=== PATIENT | female | born 1945 | race Caucasian/White ===

== ENCOUNTER 2018-01-12 17:31 | Emergency (ER) | payer MEDICARE ==
--- OUTSIDE RECORDS SUMMARY | 2018-01-12 19:26 | XMS REPORT ---
:1945 External Reference #:[id number] Author Organization zoning administrator [facility] Address [address] [place] [address] Phone [phone] Care Team Providers Name Role Phone Sergio Wells M.D. Care Team Information Insurance Manager Unavailable Santa Bagley MD Primary Care Physician Unavailable Payers Type Date Identification Numbers Payment Provider Subscriber Medicare Primary Policy Number: [id number] Medicare [place] PayID: [id number] [address] [address] [place] [address] [facility] Part B Policy Number: [id number] [employer] [place] Bruno Hickey PayID: [id number] [address] [place] [address] Problems Date Description Provider Status Onset: 05/02/2017 Electrocardiogram abnormal Romeo Cotton Active Onset: 03/22/2017 Osteopenia Santa Bagley MD Active Onset: 02/06/2017 Osteoarthritis of knee Santa Bagley MD Active Onset: 02/06/2017 Carpal tunnel syndrome Santa Bagley MD Active Onset: 01/23/2017 Personal history of primary malignant Jonny Hardy MD Active neoplasm of breast Onset: 05/09/2016 Paroxysmal atrial fibrillation Romeo Cotton Active Onset: 01/14/2014 Primary cardiomyopathy Romeo Cotton Active Onset: 01/14/2014 Conduction disorder of the heart Romeo Cotton Active Onset: Neurogenic thoracic outlet syndrome Active Onset: Lumbar arthritis Active Family History Date Family Member(s) Problem(s) Comments Father due to Heart Disease () Mother Breast Cancer Children 3 First Daughter A&W Second Daughter A&W Third Daughter A&W adopted Siblings None Paternal Grandfather due to Unknown Causes () Paternal Grandmother due to Unknown Causes () Maternal Grandfather due to Unknown Causes () Maternal Grandmother due to Breast Cancer () Social History Type Date Description Comments Marital Status Lives With Spouse Diet Healthy, Well Balanced Occupation Business Search Engine Optimization Manager retired Cigarette Use Former Cigarette Smoker 2 Packs Daily 35 years ago ETOH Use Denies alcohol use Recreational Drug Use Denies Drug Use Smoking Patient is a former smoker Daily Caffeine Does not consume caffeine Exercise Type/Frequency Exercises regularly Seat Belt/Car Seat Always uses seat belt Currently Active Patient is currently not sexually active Contraceptive Methods None STD's No STD History Allergies, Adverse Reactions, Alerts Date Description Reaction Status Severity Comments 03/17/2015 Tylenol active Medications Medication Date Status Form Strength Qnty SIG Indications Ordering Provider Vagifem 10/02 Active Tablets 10mcg 24tab use 1 tablet N95.2 s 2x qw Jump, ANP-C Trimo-Small 10/02 Active Gel 0.025% 113.4 05/15 applicator N95.2 Kiana 00gm 2x qw Jump, ANP-C Shingrix 09/10 Active Suspension 50mcg 1unit intramuscular Z23 Rec s x 1 Santa DIAS Xarelto 04/15 Active Tablets 20mg 90tab 1 by mouth I48.91 s every day Romeo K Propafenone 01/14 Active Tablets 150mg 180ta 4 tablets by bs mouth as Romeo K needed for atrial fibrillation Lisinopril 04/30 Active Tablets 2.5mg 90tab 1 tab by mouth s every day Romeo K Metoprolol 03/13 Active Tablets 25mg 90tab 1 tab by mouth Yury Tar s daily Romeo K Atorvastatin Active Tablets 10mg 90tab 1 by mouth Kevyn Calcium s every day Santa DIAS Potassium Active Capsules ER 10Meq 200ca 1 by mouth Unknown Chloride ER / ps every day Diclofenac Active Tablets DR 75mg 60tab take 2 tablet Unknown Sodium s by mouth daily Calcium-Vitam Active Tablets 600-200mg 1 by mouth Unknown in D -Unit twice a day Gynazole-1 10/08 Hx Cream 2% 5gm insert vaginally at Jump, - bedtime x1 ANP-C 10/10 Metoprolol Hx Unknown Tartrate / - 10/02 Xarelto Hx Unknown / - 10/02 Lisinopril Hx Unknown /10/02 Lipitor Hx Unknown / - 10/02 Volumen Hx Unknown / - 10/02 Propanediol Hx Unknown / - 10/02 Medications Administered in Office Medication Date Status Form Strength Qnty SIG Indications Ordering Provider PT SCRN Tbco Administered Injection Casa Gutierrez Id as Non User 018 Dc Bobby PT SCRN Tbco Administered Injection Casa Gutierrez Id as Non User 018 Dc Bobby No PT Tbco Administered Injection Kiana SCRN RNG 018 Jump, ANP-C PT SCRN Tbco Administered Injection Kiana Id as Non User 018 Jump, ANP-C SCRN Mark Perf Administered Injection Kiana RSLTS Not Doc 018 Jump, ANP-C No PT Tbco Administered Injection Kiana SCRN RNG 018 Jump, ANP-C PT SCRN Tbco Administered Injection Kiana Id as Non User 018 Jump, ANP-C SCRN Mark Perf Administered Injection Kiana RSLTS Not Doc 018 Jump, ANP-C Immunizations CPT Code Status Date Vaccine Lot # [id number] Given 02/06/2017 Influenza Virus Vaccine, Quadrivalent, Split, Preservative Free 11675 Given 08/27/2012 Tetnus, Diptheria Toxoids And Acellular Pertussis, PT > 7Yrs Old 50535 Given Unknown Zoster Shingles Vaccine For Subcutaneous Injection Vital Signs Date Vital Result Comment 01/07/2018 BP Systolic 134 mmHg BP Diastolic 62 mmHg Height 66 inches 5'6" Weight 184.00 lb BMI (Body Mass Index) 29.7 kg/m2 Last Menstrual Period 7950601 1 Parity 1 01/01/2018 Height 66 inches 5'6" Weight 185.00 lb BMI (Body Mass Index) 29.9 kg/m2 Last Menstrual Period [id number] 1 Parity 1 12/21/2017 BP Systolic 132 mmHg BP Diastolic 76 mmHg Height 66 inches 5'6" Weight 183.00 lb BMI (Body Mass Index) 29.5 kg/m2 Last Menstrual Period [id number] 1 Parity 1 LC2 11/12/2017 BP Systolic 128 mmHg BP Diastolic 68 mmHg Height 66 inches 5'6" Weight 180.00 lb BMI (Body Mass Index) 29.0 kg/m2 1 Parity 1 10/02/2017 BP Systolic 122 mmHg BP Diastolic 70 mmHg Height 65.2 inches 5'5.20" Weight 179.00 lb BMI (Body Mass Index) 29.6 kg/m2 1 Parity 1 LC 2 09/10/2017 Heart Rate 47 /min Height 65.2 inches Weight 186.00 lb BMI (Body Mass Index) 30.8 kg/m2 05/02/2017 Heart Rate 68 /min Respiratory Rate 16 /min Height 66 inches Weight 183.00 lb BMI (Body Mass Index) 29.5 kg/m2 02/06/2017 Body Temperature 97.9 F Heart Rate 68 /min Weight 183.38 lb 01/23/2017 Body Temperature 97.7 F Heart Rate 56 /min Height 66.75 inches Weight 192.00 lb BMI (Body Mass Index) 30.3 kg/m2 05/09/2016 Heart Rate 62 /min Respiratory Rate 16 /min Height 66.25 inches Weight 187.00 lb BMI (Body Mass Index) 30.0 kg/m2 04/20/2015 Heart Rate 56 /min Respiratory Rate 16 /min Height 66.25 inches Weight 178.00 lb BMI (Body Mass Index) 28.5 kg/m2 04/19/2015 BP Systolic 118 mmHg BP Diastolic 78 mmHg Height 66 inches 5'6" Weight 179.00 lb BMI (Body Mass Index) 28.9 kg/m2 2 Parity 2 03/17/2015 BP Systolic 128 mmHg BP Diastolic 78 mmHg Height 66 inches 5'6" Weight 181.00 lb BMI (Body Mass Index) 29.2 kg/m2 2 Parity 2 04/15/2014 BP Systolic 120 mmHg BP Diastolic 78 mmHg Heart Rate 68 /min Height 65.5 inches Weight 185.00 lb BMI (Body Mass Index) 30.3 kg/m2 01/14/2014 Heart Rate 56 /min Respiratory Rate 12 /min Height 65.5 inches Weight 181.50 lb BMI (Body Mass Index) 29.7 kg/m2 Results Test Date Test Result H/L Range Note Laboratory test 12/26/2017 Surgical Pathology SEE RESULT BELOW 1 finding Laboratory test 11/12/2017 Surgical Pathology SEE RESULT BELOW 2 finding Laboratory test 10/02/2017 Culture Genital & SEE RESULT BELOW 3 finding Sensitivity Basic Metabolic Panel 07/17/2017 Anion Gap 4 mmol/L 2-11 BUN/Creatinine Ratio 24.5 1 High 8-20 Blood Urea Nitrogen 23 mg/dL 6-24 Calcium 9.3 mg/dL 8.6-10.3 Chloride 105 mmol/L 101-111 Co2 Carbon Dioxide 30 mmol/L 22-32 Creatinine 0.94 mg/dL 0.51-0.95 Egfr 74.9 1 >60 4 Egfr Non- 58.2 1 >60 Glucose 77 mg/dL 70-100 Potassium 4.6 mmol/L 3.5-5.0 Sodium 139 mmol/L 133-145 CBC Auto Diff 07/17/2017 Abs Basophils 0.1 10^3/uL 0-0.2 Abs Eosinophils 0.2 10^3/uL 0-0.6 Abs Lymphocytes 1.4 10^3/uL 1.0-4.8 Abs Monocytes 0.4 10^3/uL 0-0.8 Abs Neutrophils 3.6 10^3/uL 1.5-7.7 Abs Nucleated RBC 0 10^3/uL Basophil % 1.0 % 0-2 Eosinophil % 3.2 % 0-6 Granulocyte % 63.6 % 38-83 Hematocrit 35 % 35-47 Hemoglobin 11.7 g/dL Low 12.0-16.0 Lymphocyte % 24.6 % Low 25-47 Mean Corpuscular HGB Conc 33 g/dL 31-36 Mean Corpuscular Hemoglobin 31 pg 27-31 Mean Corpuscular Volume 92 fL 80-97 Mean Platelet Volume 9 um3 7.4-10.4 Monocyte % 7.6 % High 0-7 Nucleated Red Blood Cells % 0 1 Platelet Count 168 10^3/uL 150-450 Red Blood Count 3.83 10^6/uL Low 4.0-5.4 Red Cell Distribution Width 15 % 10.5-15 White Blood Count 5.7 10^3/uL 3.5-10.8 Urinalysis Profile 06/07/2017 Urine Appearance Cloudy 5 Urine Bacteria Absent Absent 5 Urine Bilirubin Negative Negative 5 Urine Blood 1+ Negative 5 Urine Color Yellow 5 Urine Glucose Negative Negative 5 Urine Ketones Negative Negative 5 Urine Leukocytes 3+ Negative 5 Urine Nitrite Negative Negative 5 Urine Protein Negative Negative 5 Urine Red Blood Cell Trace(0-2/hpf) Absent 5 Urine Specific [place] 1.018 1 1.010-1.030 5 Urine Squamous Epithelial Cell Present Absent 5 Urine Urobilinogen Negative Negative 5 Urine White Blood Cell 3+(>20/hpf) Absent 5 Urine pH 5.0 1 5-9 5 Urine Culture And 06/07/2017 Urine Culture See Result Below 5, 6 Sensitivities Urinalysis Profile 05/03/2017 Urine Appearance Cloudy 7 Urine Bacteria 1+ Absent 7 Urine Bilirubin Negative Negative 7 Urine Blood 1+ Negative 7 Urine Color Yellow 7 Urine Glucose Negative Negative 7 Urine Hyaline Casts Present Absent 7 Urine Ketones Negative Negative 7 Urine Leukocytes 3+ Negative 7 Urine Nitrite Negative Negative 7 Urine Protein Negative Negative 7 Urine Red Blood Cell 1+(3-5/hpf) Absent 7 Urine Specific [place] 1.011 1 1.010-1.030 7 Urine Squamous Epithelial Cell Present Absent 7 Urine Urobilinogen Negative Negative 7 Urine White Blood Cell 3+(>20/hpf) Absent 7 Urine pH 5.0 1 5-9 7 Urine Culture And Sensitivities 05/03/2017 Urine Culture See Result Below 7, 8 Laboratory test finding 03/17/2015 Cytology SEE RESULT BELOW 9 Human Papilloma Virus Rna Negative Negative 10 1 SEE RESULT BELOW Name: SHENG HICKEY : [address]: Casa Bobby MD Acct: [id number] Unit: [id number] AGE: 72 Location: [facility] Re12/26/17 SEX: F Status: REG REF SPEC: [id number] DWAYNE: 12/26/171147 [facility] DR: Casa Bobby MD REQ: [id number] RECD: 12/26/17 STATUS: AVEL PIERRE DR: Santa Bagley MD _ ORDERED: LEVEL 4 COMMENTS: [id number] FINAL DIAGNOSIS Uterus, endometrium, biopsy: -- Atrophic endometrial mucosa. -- No evidence of hyperplasia or malignancy. PRE-OPERATIVE DIAGNOSIS Dysfunctional uterine bleeding GROSS DESCRIPTION The specimen is received in formalin labeled, EM BX, and consists of a 3.2 x 2.0 x 0.2 cm aggregate of translucent to blood tinged mucus admixed with scant coe-white irregular soft tissue fragments, which is filtered and entirely submitted in one cassette. Signed by and Reported on: Isabelle Dupont MD 12/27/17 1554 END OF REPORT DEPARTMENT OF PATHOLOGY, [address] [place] [address] Reji Hernandez M.D. Director [facility] # [id number] 2 SEE RESULT BELOW Name: SHENG HICKEY : [address]: Kiana العراقي Acct: [id number] Unit: [id number] AGE: 72 Location: [facility] Re11/12/17 SEX: F Status: REG REF SPEC: [id number] DWAYNE: 11/12/[address]: Kiana العراقي REQ: [id number] RECD: 11/12/17 STATUS: AVEL PIERRE DR: Santa Bagley MD _ ORDERED: LEVEL 4 COMMENTS: [id number] FINAL DIAGNOSIS Uterus, endometrium, biopsy: -- Inflamed mucus only. -- No endometrial tissue present for evaluation. PRE-OPERATIVE DIAGNOSIS Dysfunctional uterine bleeding. GROSS DESCRIPTION The specimen is received in formalin labeled, EM BX, and consists of a 1.0 x 0.9 x 0.1 cm aggregate of clear to coe-white mucus. The specimen is filtered and submitted entirely in one cassette. NOTE: The specimen is scant and may not survive processing. Signed by and Reported on: Isabelle Dupont MD 11/15/17 1019 END OF REPORT DEPARTMENT OF PATHOLOGY, [address] [place] [address] Reji Hernandez M.D. Director [facility] # [id number] 3 SEE RESULT BELOW Name: SHENG HICKEY Fly : [address]: Kiana العراقي Acct: [id number] Unit: [id number] AGE: 72 Location: [facility] Re10/02/17 SEX: F Status: REG REF SPEC: [id number] DWAYNE: 10/02/[address]: Kiana العراقي REQ: [id number] RECD: 10/02/17 STATUS: COMP _ SOURCE: CERVIX SPDESC: ORDERED: Genital Culture COMMENTS: [id number] Procedure Result Reported Site Genital Culture Final 10/04/17- 948 ML Organism 1 GARDNERELLA VAGINALIS Quantity 2+ Organism 2 NORMAL PARRISH Quantity 1+ Routine genital cultures do not include selective agar for Neisseria gonorrhoeae. Molecular testing offers better test sensitivity and therefore is the preferred test methodology for identifying this organism. * ML - Main Lab . END OF REPORT DEPARTMENT OF PATHOLOGY, [address] [place] [address] Reji Hernandez M.D. Director [facility] # [id number] 4 Because ethnic data is not always readily available, this report includes an eGFR for both -Americans and non- Americans. The National Kidney Disease Education Program (NKDEP) does not endorse the use of the MDRD equation for patients that are not between the ages of 18 and 70, are , have extremes of body size, muscle mass, or nutritional status, or are non- or non-. According to the National Kidney Foundation, irrespective of diagnosis, the stage of the disease is based on the level of kidney function: Stage Description GFR(mL/min/1.73 m(2)) 1 Kidney damage with normal or decreased GFR 90 2 Kidney damage with mild decrease in GFR 60-89 3 Moderate decrease in GFR 30-59 4 Severe decrease in GFR 15-29 5 Kidney failure <15 (or dialysis) 5 [id number] 6 SEE RESULT BELOW Name: SHENG HICKEY : [address]: Santa Bagley MD Acct: [id number] Unit: [id number] AGE: 72 Location: [facility] Re06/07/17 SEX: F Status: REG REF SPEC: [id number] DWAYNE: 06/07/17-[address] [facility] [address]: Santa Bagley MD REQ: [id number] RECD: 06/07/17 STATUS: COMP _ SOURCE: URINE SPDESC: ORDERED: Urine Culture Procedure Result Reported Site Urine Culture Final 06/08/17- 1701 ML No Growth (<1,000 CFU/mL) * ML - [facility] ([facility]) . END OF REPORT * ML=Testing performed at Main Lab DEPARTMENT OF PATHOLOGY, [address] [place] [address] Reji Hernandez M.D. Director [facility] # [id number] 8 SEE RESULT BELOW Name: SHENG HICKEY : [address]: Santa Bagley MD Acct: [id number] Unit: [id number] AGE: 72 Location: [facility] Re05/03/17 SEX: F Status: REG REF SPEC: [id number] DWAYNE: 05/03/17-[address]: Santa Bagley MD REQ: [id number] RECD: 05/04/17-0786 STATUS: COMP _ SOURCE: URINE SPDESC: ORDERED: Urine Culture Procedure Result Reported Site Urine Culture Final 05/06/17- 900 ML No Growth (<1,000 CFU/mL) * ML - MAIN LAB ([facility]) . END OF REPORT * ML=Testing performed at Main Lab DEPARTMENT OF PATHOLOGY, [address] [place] [address] Reji Hernandez M.D. Director [facility] # [id number] 9 SEE RESULT BELOW Name: SHENG HICKEY : [address]: Casa Bobby MD Acct: [id number] Unit: [id number] AGE: 69 Location: [facility] Re03/17/15 SEX: F Status: REG REF SPEC: [id number] DWAYNE: 03/17/15-[address] [facility] [address]: Casa Bobby MD REQ: [id number] RECD: 03/17/15 STATUS: SOUT _ ORDERED: IMAGE ANALYSIS, HPV/Thin Prep FINAL DIAGNOSIS Negative for Intraepithelial lesion or Malignancy A. Ectocervical/Endocervical Specimen Adequacy: Satisfactory of evaluation Transformation zone component identified Patient Information: HPV: High risk HPV RNA testing regardless of pap results. Actual Specimen Date: 03/17/15 LMP If Unknown: unknown Spec Date if unknown: unknown Post Menopausal?: Y Date Time Test Result Flag (u) Normal Range 03/17/15 1420 HPV RNA Negative Negative The high-risk HPV types detected by the assay include: 16, 18, 31, 33, 35, 39, 45, 51, 52, 56, 58, 59, 66, and 68. Signed (signature on file) Jeff Zhou 03/18/15 1329 This Pap test was evaluated with the assistance of the ThinPrep Test Imaging System. Due to cytologic findings at the business functional analyst microscope, comprehensive manual rescreening by a Best Worker may be required. The Pap Smear is a screening test designed to aid in the detection of premalignant and malignant conditions of the uterine cervix. It is not a diagnostic procedure and should not be used as the sole means of detecting cervical cancer. Both false- positive and false- negative reports do occur. Depending on your risk status, a Pap smear should be obtained and evaluated every 1-3 years. END OF REPORT * ML=Testing performed at Main Lab DEPARTMENT OF PATHOLOGY, [address] [place] [address] Reji Hernandez M.D. Director [facility] # [id number] 10 The high-risk HPV types detected by the assay include: 16, 18, 31, 33, 35, 39, 45, 51, 52, 56, 58, 59, 66, and 68. Procedures Date CPT Code Description Status Comment 01/01/2018 36818 Fitting & Insertion Of Completed Pessary/Intravaginal Support Device 12/26/2017 84549 Hysteroscopy,D&C Completed 12/26/2017 45256 Hysteroscopy, Biopsy Completed 11/12/2017 28350 Echography Transvaginal Completed 11/12/2017 88655 Biopsy Endometrial W/O Completed Cervical Dilation 03/20/2017 Mammogram Completed 01/27/2016 Colonoscopy Completed no further screening needed 03/17/2015 87875 Fitting & Insertion Of Completed Pessary/Intravaginal Support Device Encounters Type Date Location Provider CPT E/M Dx Office Visit 01/07/2018 2:20p [facility] Office Casa Bobby M.D. 96757 N81.2 Office Visit 12/21/2017 3:20p [facility] Casa Bobby M.D. 54485 N95.0 N81.2 Office Visit 11/12/2017 9:00a [facility] SAUMYA Vera 78056 N95.0 N81.9 N95.2 Office Visit 10/02/2017 9:00a [facility] Office SAUMYA Vera 89421 N81.9 N81.11 N95.2 N95.0 Office Visit 04/19/2015 10:00a [facility] Office Casa Bobby M.D. 98307 N81.9 Office Visit 03/17/2015 1:40p [facility] Casa Bobby M.D. 96231 N81.11 Z12.4 N81.9 Plan of Care Future Appointment(s):02/08/2018 10:20 am - Casa Bobby M.D. at [facility]01/07/2018 - Casa Bobby M.D.N81.2 Incomplete uterovaginal prolapseComments:pt to leave alone for a few weeks rtc 1 monthFollow up:Followup :. (Follow up)
--- OUTSIDE RECORDS SUMMARY | 2018-01-12 19:26 | XMS REPORT ---
:1945 External Reference #:[id number] Author Organization [facility] Address [address] [place] [address] Phone [phone] Care Team Providers Name Role Phone Sergio Wells M.D. Care Team Information Apprentice Plumber Unavailable Santa Bagley MD Primary Care Physician Unavailable Payers Type Date Identification Numbers Payment Provider Subscriber Commercial Policy Number: [id number] Aetna Ppo Bruno Ahsan Hickey PayID: [id number] [address] [place] [address] [facility] Part [facility] Policy Number: [id number] Medicare [place] Sheng Hickey PayID: [id number] [address] [address] [place] [address] Problems Date Description Provider Status Onset: 05/02/2017 [...] Spouse Diet Healthy, Well Balanced Occupation [employer] retired Cigarette Use Former Cigarette Smoker 2 [...] Active Gel 0.025% 113.4 05/15 applicator N95.2 00gm 2x qw Jump, ANP-C Shingrix 09/10 [...] Active Tablets 10mg 90tab 1 by mouth Kevyn, Calcium s every day Santa DIAS Potassium Active Capsules ER 10Meq 200ca 1 by mouth Unknown Chloride ER / ps every day Diclofenac Active Tablets DR 75mg 60tab take 2 tablet Unknown Sodium s by mouth daily Calcium-Vitam Active Tablets 600-200mg 1 by mouth Unknown in D / -Unit twice a day Gynazole-1 10/08 Hx Cream 2% 5gm insert Kiana vaginally at Jump, - bedtime x1 ANP-C 10/10 Metoprolol Hx Unknown Tartrate / - 10/02 Xarelto Hx Unknown / - 10/02 Lisinopril Hx Unknown / - 10/02 Lipitor Hx Unknown / - 10/02 Volumen [...] CPT Code Status Date Vaccine Lot # [id number] Given 02/06/2017 Influenza Virus Vaccine, Quadrivalent, Split, Preservative Free 16804 Given 08/27/2012 Tetnus, Diptheria Toxoids And Acellular Pertussis, PT > 7Yrs Old 51086 Given Unknown Zoster Shingles Vaccine For Subcutaneous Injection Vital Signs Date Vital Result Comment 12/21/2017 BP Systolic 132 mmHg BP Diastolic 76 mmHg Height 66 inches 5'6" Weight 183.00 lb BMI (Body Mass Index) 29.5 kg/m2 Last Menstrual Period 3549982 1 Parity 1 LC2 11/12/2017 BP Systolic [...] Range Note Laboratory test 12/26/2017 Surgical Pathology <pending> finding Laboratory test 11/12/2017 Surgical Pathology SEE RESULT BELOW 1 finding Laboratory test 10/02/2017 Culture Genital & SEE RESULT BELOW 2 finding Sensitivity Basic Metabolic Panel 07/17/2017 Anion Gap 4 mmol/L 2-11 BUN/Creatinine Ratio 24.5 1 High 8-20 Blood Urea Nitrogen 23 mg/dL 6-24 Calcium 9.3 mg/dL 8.6-10.3 Chloride 105 mmol/L 101-111 Co2 Carbon Dioxide 30 mmol/L 22-32 Creatinine 0.94 mg/dL 0.51-0.95 Egfr 74.9 1 >60 3 Egfr Non- 58.2 1 >60 Glucose 77 [...] 3.5-10.8 Urinalysis Profile 06/07/2017 Urine Appearance Cloudy 4 Urine Bacteria Absent Absent 4 Urine Bilirubin Negative Negative 4 Urine Blood 1+ Negative 4 Urine Color Yellow 4 Urine Glucose Negative Negative 4 Urine Ketones Negative Negative 4 Urine Leukocytes 3+ Negative 4 Urine Nitrite Negative Negative 4 Urine Protein Negative Negative 4 Urine Red Blood Cell Trace(0-2/hpf) Absent 4 Urine Specific [place] 1.018 1 1.010-1.030 4 Urine Squamous Epithelial Cell Present Absent 4 Urine Urobilinogen Negative Negative 4 Urine White Blood Cell 3+(>20/hpf) Absent 4 Urine pH 5.0 1 5-9 4 Urine Culture And 06/07/2017 Urine Culture See Result Below 4, 5 Sensitivities Urinalysis Profile 05/03/2017 Urine Appearance Cloudy 6 Urine Bacteria 1+ Absent 6 Urine Bilirubin Negative Negative 6 Urine Blood 1+ Negative 6 Urine Color Yellow 6 Urine Glucose Negative Negative 6 Urine Hyaline Casts Present Absent 6 Urine Ketones Negative Negative 6 Urine Leukocytes 3+ Negative 6 Urine Nitrite Negative Negative 6 Urine Protein Negative Negative 6 Urine Red Blood Cell 1+(3-5/hpf) Absent 6 Urine Specific [place] 1.011 1 1.010-1.030 6 Urine Squamous Epithelial Cell Present Absent 6 Urine Urobilinogen Negative Negative 6 Urine White Blood Cell 3+(>20/hpf) Absent 6 Urine pH 5.0 1 5-9 6 Urine Culture And Sensitivities 05/03/2017 Urine Culture See Result Below 6, 7 Laboratory test finding 03/17/2015 Cytology SEE RESULT BELOW 8 Human Papilloma Virus Rna Negative Negative 9 1 SEE RESULT BELOW Name: SHENG HICKEY : [address]: Kiana العراقي Acct: [id number] Unit: [id number] AGE: 72 Location: [facility] Re11/12/17 SEX: F Status: REG REF SPEC: [id number] DWAYNE: 11/12/170927 [facility] DR: Kiana العراقي REQ: [id number] RECD: 11/12/17 STATUS: AVEL PIERRE DR: Santa Bagley MD _ ORDERED: LEVEL 4 COMMENTS: [id number] FINAL DIAGNOSIS Uterus, endometrium, biopsy: -- Inflamed [...] 1019 END OF REPORT DEPARTMENT OF PATHOLOGY, [address] [place] [address] Reji Hernandez M.D. Director [facility] # [id number] 2 SEE RESULT BELOW Name: SHENG HICKEY : [address]: Kiana العراقي Acct: [id number] Unit: [id number] AGE: 72 Location: [facility] Re10/02/17 SEX: F Status: REG REF SPEC: [id number] DWAYNE: 10/02/[address] [facility] [address]: Kiana العراقي REQ: [id number] RECD: 10/02/17 STATUS: COMP _ SOURCE: CERVIX SPDESC: ORDERED: Genital Culture COMMENTS: [id number] Procedure Result Reported Site Genital Culture Final 10/04/17- 0949 ML Organism 1 GARDNERELLA VAGINALIS Quantity 2+ Organism 2 NORMAL PARRISH Quantity 1+ Routine genital cultures do not include selective agar for Neisseria gonorrhoeae. Molecular testing offers better test sensitivity and therefore is the preferred test methodology for identifying this organism. * ML - Main Lab . END OF REPORT DEPARTMENT OF PATHOLOGY, [address] [place] [address] Reji Hernandez M.D. Director [facility] # [id number] 3 Because ethnic data is not always readily [...] 15-29 5 Kidney failure <15 (or dialysis) 4 [id number] 5 SEE RESULT BELOW Name: SHENG HICKEY Fly : [address]: Santa Bagley MD Acct: [id number] Unit: [id number] AGE: 72 Location: [facility] Re06/07/17 SEX: F Status: REG REF SPEC: [id number] DWAYNE: 06/07/17-[address] [place] [address] DR: Santa Bagley MD REQ: [id number] RECD: 06/07/17 STATUS: COMP _ [facility] ORDERED: Urine Culture Procedure Result Reported Site Urine Culture Final 06/08/17- 1701 ML No Growth (<1,000 CFU/mL) * ML - MAIN LAB ([facility]) . END OF REPORT * ML=Testing performed at Main Lab DEPARTMENT OF PATHOLOGY, [address] [place] [address] Reji Hernandez M.D. Director [facility] # [id number] 6 [id number] 7 SEE RESULT BELOW Name: SHENG HICKEY : [address]: Santa Bagley MD Acct: [id number] Unit: [id number] AGE: 72 Location: [facility] Re05/03/17 SEX: F Status: REG REF SPEC: [id number] DWAYNE: 05/03/17-[address]: Santa Bagley MD REQ: [id number] RECD: 05/04/17 STATUS: COMP _ SOURCE: URINE SPDESC: ORDERED: Urine Culture Procedure Result Reported Site Urine Culture Final 05/06/17- 900 ML No Growth (<1,000 CFU/mL) * ML - MAIN LAB ([facility]) . END OF REPORT * ML=Testing performed at Main Lab DEPARTMENT OF PATHOLOGY, [address] [place] [address] Reji Hernandez M.D. Director [facility] # [id number] 8 SEE RESULT BELOW Name: SHENG HICKEY : [address]: Casa Bobby MD Acct: [id number] Unit: [id number] AGE: 69 Location: [facility] Re03/17/15 SEX: F Status: REG REF SPEC: [id number] DWAYNE: 03/17/15-[address] [facility] [address]: Casa Bobby MD REQ: [id number] RECD: 03/17/152 STATUS: SOUT _ ORDERED: IMAGE ANALYSIS, HPV/Thin [...] and 68. Signed (signature on file) Jeff Abelardo 03/18/15 1327 This Pap test was evaluated with the assistance of the Monstrous Test Imaging System. Due to cytologic findings at the shipping point inspector microscope, comprehensive manual rescreening by a Bread Room Hand may be required. The Pap Smear is [...] performed at Main Lab DEPARTMENT OF PATHOLOGY, [address] [place] [address] Reji Hernandez M.D. Director [facility] # [id number] 9 The high-risk HPV types detected by the assay include: 16, 18, 31, 33, 35, 39, 45, 51, 52, 56, 58, 59, 66, and 68. Procedures Date CPT Code Description Status Comment 11/12/2017 97748 Echography Transvaginal Completed 11/12/2017 99476 Biopsy Endometrial W/O Completed Cervical Dilation 03/20/2017 Mammogram Completed 01/27/2016 Colonoscopy Completed no further screening needed 03/17/2015 09032 Fitting & Insertion Of Completed Pessary/Intravaginal Support Device Encounters Type Date Location Provider CPT E/M Dx Office Visit 12/21/2017 3:20p [facility] Casa Bobby M.D. 97085 N95.0 N81.2 Office Visit 11/12/2017 9:00a [facility] SAUMYA Vera 75571 N95.0 N81.9 N95.2 Office Visit 10/02/2017 9:00a [facility] SAUMYA Vera 79080 N81.9 N81.11 N95.2 N95.0 Office Visit 04/19/2015 10:00a [facility] aCsa Bobby M.D. 17182 N81.9 Office Visit 03/17/2015 1:40p [facility] Office Casa Bobby M.D. 67063 N81.11 Z12.4 N81.9 Plan of Care Future Appointment(s):01/01/2018 3:00 pm - Casa Bobby M.D. at [facility] Mkkiui3810/02/2017 - ELLYN Vera-CN81.9 Female genital prolapse, unspecifiedFollow up:r/v u/s and consult PMB and recheck [id number] Cystocele, gjclqpzG17.2 Postmenopausal atrophic vaginitisNew Medication:Vagifem 10 mcgTrimo-Small 0.025 %N95.0 Postmenopausal bleeding
[2018-01-12 19:38] VITALS: BP 130/68
[2018-01-12] MEDS ORDERED: Sulfamethox/Trimethoprim DS 800/160* TAB PO ONE (20:27)
--- NOTE | 2018-01-12 20:36 | UC ---
Complaint Female HPI - HPI Summary HPI Summary: 2 days of intermittent dysuria and hematuria. No fever, nausea, back pain. Has a history of bladder prolapse and was recently fitted with a pessary. Has been using vaginal pH stabilizing cream. - History Of Current Complaint Chief Complaint: UCGU Stated Complaint: POSS UTI Time Seen by Provider: 01/12/18 19:47 Hx Obtained From: Patient Onset/Duration: Lasting Days, Still Present Severity Initially: Moderate Severity Currently: Moderate Pain Intensity: 0 Pain Scale Used: 0-10 Numeric Character: Burning Aggravating Factor(s): Urination Associated Signs And Symptoms: Negative: Fever, Back Pain, Nausea - Allergies/Home Medications Allergies/Adverse Reactions: Allergies Allergy/AdvReac Type Severity Reaction Status Date / Time acetaminophen [From Tylenol] Allergy See Comment Verified 01/12/18 19:40 PMH/Surg Hx/FS Hx/Imm Hx Cardiovascular History: Atrial Fibrillation Cancer History: Breast Cancer - Surgical History Surgical History: Yes Surgery Procedure, Year, and Place: LEFT BREAST MASTECTOMY, LEFT KNEE MENISCUS, RIGHT HIP REPLACEMENT. Biopsy of endometrial/vagina 12/26/17 - Family History Known Family History: Negative: Hypertension - Social History Alcohol Use: None Substance Use Type: None Smoking Status (MU): Former Smoker Review of Systems Constitutional: Negative Respiratory: Negative Cardiovascular: Negative Gastrointestinal: Negative Genitourinary: Dysuria, Hematuria All Other Systems Reviewed And Are Negative: Yes Physical Exam Triage Information Reviewed: Yes Appearance: Well-Appearing, No Pain Distress, Well-Nourished Vital Signs: Initial Vital Signs Temp 97.8 F 01/12/18 19:31 Pulse 56 01/12/18 19:31 Resp 12 01/12/18 19:31 BP 130/68 01/12/18 19:31 Pulse Ox 100 01/12/18 19:31 Laboratory Tests 01/12/18 19:55 POC Urine Color Red A POC Urine Clarity Clear POC Urine pH 5.5 POC Ur Specif [place] 1.020 POC Urine Protein 1+ A POC Ur Glucose (UA) Negative POC Urine Ketones Negative POC Urine Blood 3+ A POC Urine Nitrite Negative POC Urine Bilirubin 3+ A POC Urine Urobilinogen 0.2 POC U Leukocyte Esteras 3+ A Vital Signs Reviewed: Yes Eyes: Positive: Conjunctiva Clear ENT: Positive: Hearing grossly normal Neck: Positive: Supple Respiratory: Positive: No respiratory distress, No accessory muscle use Cardiovascular: Positive: Pulses Normal Abdomen Description: Positive: Nontender, Soft. Negative: CVA Tenderness (R), CVA Tenderness (L), Distended, Guarding Musculoskeletal: Positive: No Edema Neurological: Positive: Alert Psychological: Positive: Age Appropriate Behavior Skin: Negative: rashes Complaint Female Dx - Differential Dx/Diagnosis Provider Diagnoses: UTI Discharge - Sign-Out/Discharge Documenting (check all that apply): Patient Departure All imaging exams completed and their final reports reviewed: No Studies - Discharge Plan Condition: Stable Disposition: HOME Prescriptions: Sulfamethox/Trimethoprim DS* [Bactrim DS 800/160 TAB*] 1 tab PO BID #19 tab Patient Education Materials: Urinary Tract Infection in Women (ED) Referrals: Santa Bagley MD [Primary Care Provider] - If Needed Additional Instructions: YOUR URINE WILL BE SENT FOR CULTURE. WE WILL CALL YOU IF WE NEED TO CHANGE YOUR MANAGEMENT BASED ON ANTIBIOTIC SENSITIVITIES. STAY WELL HYDRATED. - Billing Disposition and Condition Condition: STABLE Disposition: Home
--- NOTE | 2018-01-14 16:10 | UC ---
- Progress Note Progress Note: 01/14/2018 Urine culture positive for E.Coli. Pt Rx Bactrim PO. which covers E. coli Awaiting for final sensitivity report No change Ro Jolly PA-C. Discharge - Sign-Out/Discharge Documenting (check all that apply): Patient Departure - D/c home All imaging exams completed and their final reports reviewed: No Studies - Discharge Plan Condition: Stable Disposition: HOME Prescriptions: Sulfamethox/Trimethoprim DS* [Bactrim DS 800/160 TAB*] 1 tab PO BID #19 tab Patient Education Materials: Urinary Tract Infection in Women (ED) Referrals: Santa Bagley MD [Primary Care Provider] - If Needed Additional Instructions: YOUR URINE WILL BE SENT FOR CULTURE. WE WILL CALL YOU IF WE NEED TO CHANGE YOUR MANAGEMENT BASED ON ANTIBIOTIC SENSITIVITIES. STAY WELL HYDRATED. - Billing Disposition and Condition Condition: STABLE Disposition: Home
--- NOTE | 2018-01-15 19:48 | UC ---
- Progress Note Progress Note: sensitive to Bactrim No change ljj 01/15/2018 Discharge - Sign-Out/Discharge Documenting (check all that apply): Post-Discharge Follow Up All imaging exams completed and their final reports reviewed: No Studies - Discharge Plan Condition: Stable Disposition: HOME Prescriptions: Sulfamethox/Trimethoprim DS* [Bactrim DS 800/160 TAB*] 1 tab PO BID #19 tab Patient Education Materials: Urinary Tract Infection in Women (ED) Referrals: Santa Bagley MD [Primary Care Provider] - If Needed Additional Instructions: YOUR URINE WILL BE SENT FOR CULTURE. WE WILL CALL YOU IF WE NEED TO CHANGE YOUR MANAGEMENT BASED ON ANTIBIOTIC SENSITIVITIES. STAY WELL HYDRATED. - Billing Disposition and Condition Condition: STABLE Disposition: Home
== END 2018-01-12 20:40 | disposition home or self-care (01) ==
LOC: UCEAST 17:31
DX: N39.0 Urinary tract infection, site not specified (principal); R31.9 Hematuria, unspecified; Z87.448 Personal history of other diseases of urinary system; Z88.6 Allergy status to analgesic agent; Z96.651 Presence of right artificial knee joint; Z87.891 Personal history of nicotine dependence
CPT/HCPCS: 81003; 87077; 87086; 87186; 99212; A9270-GY; G0463

== ENCOUNTER 2018-10-03 10:02 | Emergency (ER) | payer MEDICARE ==
--- OUTSIDE RECORDS SUMMARY | 2018-10-03 11:54 | XMS REPORT | Continuity of Care Document ---
:1945 External Reference #:[id number] Author Name Quyen Alexandre Care Team Providers Name Role Phone Santa Bagley M.D. Primary Care Physician Unavailable Payers Date Identification Numbers Payment Provider Subscriber Policy Number: [id number] [employer] Medicare Angeli Madrigal PayID: [id number] [address] [place] [address] Advance Directives Description No Information Available Problems Active Problems Provider Date Atrial fibrillation Onset: Congestive heart failure Onset: Exposure keratoconjunctivitis Tameka Chapman O.D. Onset: 04/23/2015 Nuclear senile cataract Tameka Chapman O.D. Onset: 04/23/2015 Myopia Tameka Chapman O.D. Onset: 04/23/2015 Regular astigmatism Tameka Chapman O.D. Onset: 04/23/2015 Presbyopia Tameka Chapman O.D. Onset: 04/23/2015 Vitreous degeneration Tameka Chapman O.D. Onset: 04/23/2015 Tear film insufficiency Tameka Chapman O.D. Onset: 04/27/2017 Family History Date Family Member(s) Observation Comments Father No Current Problems Mother Coag Mother Cataract Mother Macular Degeneration Social History Type Date Description Comments Sex Unknown Marital Status Legal Status: Occupation [employer] Work Status Retired ETOH Use Denies alcohol use Recreational Drug Use Denies Drug Use Tobacco Use Start: Unknown End: Patient is a former quit 32 years ago Unknown smoker Smoking Status Reviewed: 04/30/18 Patient is a former quit 32 years ago smoker Allergies, Adverse Reactions, Alerts Active Allergies Reaction Severity Comments Date Tylenol 04/16/2015 Medications Active Medications SIG Qnty Indications Ordering Provider Date Xarelto Romeo Cotton.DDavid 20mg Tablets Lisinopril Romeo CottonDDavid 2.5mg Tablets Klor-Con 10 Cardiedy Sergio M.DDavid 10Meq Tablets ER Atorvastatin Calcium CardiSergio snow M.D. 10mg Tablets Metoprolol Tartrate Romeo Cotton M.DDavid 25mg Tablets Diclofenac Sodium Unknown 75mg Tablets DR Calcium 600 + D Unknown [id number] Tablets Immunizations Description No Information Available Vital Signs Description No Information Available Results Description No Information Available Procedures Date Code Description Status 04/30/2018 10909 Determination Of Refractive State Completed 04/30/2018 84457 Est Patient Comprehensive Exam Completed 04/27/2017 86536 Determination Of Refractive State Completed 04/27/2017 90370 Est Patient Comprehensive Exam Completed 04/24/2016 24531 Determination Of Refractive State Completed 04/24/2016 44499 Est Patient Comprehensive Exam Completed 04/23/2015 14657 Determination Of Refractive State Completed 04/23/2015 12950 Est Patient Comprehensive Exam Completed 04/22/2014 96049 Determination Of Refractive State Completed 04/22/2014 38217 Est Patient Comprehensive Exam Completed 04/22/2014 101 Level 1 SCL Fit/Refit Completed 04/22/2013 14220 Determination Of Refractive State Completed 04/22/2013 52558 Est Patient Comprehensive Exam Completed 12/29/2011 46354 Determination Of Refractive State Completed 12/29/2011 53782 New Patient Comprehensive Exam Completed 12/29/2011 202 Refit SCL Completed Encounters Description No Information Available Plan of Treatment Future Appointment(s):05/20/2019 9:30 am - Tameka Chapman O.D. at [facility] MD, 04/30/2018 - Tameka Chapman O.D.H25.13 Age-related nuclear cataract, bilateralComments:You have been diagnosed with cataracts. If you are happy with your vision as it is now, then we willsee you at your next scheduled appointment. If you feel like your vision is getting worse before your scheduled appointment, please call Lissette or Yarely at [phone].Follow up:1 year You can expect to have your eyes dilated at your next visit. If Dr. Chapman orders any additional testing, it may require extra time. We recommend that you bring sunglasses, as dilation drops often make you light sensitive until they wear off. We always recommend you bring someone to drive you home if you are uncomfortable driving with your eyes dilated. If you have any questions before your next visit, feel free to call our office at .H04.123 Dry eye syndrome of bilateral lacrimal glandsComments:Both of your eyes appear to be dry. Use artificial tears as directed. You can use the tears more often if you are reading a book or are on the computer, as we tend to blink less, making our eyes dry out more.[email or web address] offers a few items in our optical department to help alleviate dry eye symptoms.H52.13 Myopia, bilateralComments:You have Myopia, or near sightedness. I have given you a prescription for glasses.H52.223 Regular astigmatism, bilateralComments: Astigmatism is a common vision condition that happens when a person's cornea is not symmetrical. Dr. Chapman has given you a prescription to correct for this.H52.4 PresbyopiaComments:You have presbyopia. This is when the lens in your eye loses the ability to change focus, and happens as we age. A pair of reading glasses will help you see up close.
--- NOTE | 2018-10-03 12:22 | UC ---
Skin Complaint HPI - HPI Summary HPI Summary: 73-year-old woman comes in with a chief complaint of swelling of the right hand and forearm after being bit by an insect yesterday. She was bit several times of some kind of a flying insect. Her hand and her dorsal forearm swallow up. She is topical Benadryl and some of the swelling is gone down. I when she closes her hand feels tight but she is able to have full range of motion no sensation deficits. She's had similar localized reactions in the past. No difficulty breathing no difficulty swallowing no generalized allergic reaction symptoms. - History of Current Complaint Time Seen by Provider: 10/03/18 11:54 Stated Complaint: INSECT BITE - Allergy/Home Medications Allergies/Adverse Reactions: Allergies Allergy/AdvReac Type Severity Reaction Status Date / Time acetaminophen [From Tylenol] Allergy See Comment Verified 10/03/18 12:17 PMH/Surg Hx/FS Hx/Imm Hx Previously Healthy: Yes Cardiovascular History: Hypertension, Atrial Fibrillation - Surgical History Surgical History: Yes Surgery Procedure, Year, and Place: LEFT BREAST MASTECTOMY, LEFT KNEE MENISCUS, RIGHT HIP REPLACEMENT. Biopsy of endometrial/vagina 12/26/17 - Family History Known Family History: Negative: Hypertension - Social History Alcohol Use: None Substance Use Type: None Smoking Status (MU): Former Smoker Review of Systems All Other Systems Reviewed And Are Negative: Yes Constitutional: Positive: Negative Skin: Positive: Other - SEE HPI Eyes: Positive: Negative ENT: Positive: Negative Respiratory: Positive: Negative Cardiovascular: Positive: Negative Gastrointestinal: Positive: Negative Motor: Positive: Negative Neurovascular: Positive: Negative Musculoskeletal: Positive: Negative Neurological: Positive: Negative Psychological: Positive: Negative Is Patient Immunocompromised?: No Physical Exam Triage Information Reviewed: Yes Appearance: Well-Appearing, No Pain Distress, Well-Nourished Vital Signs Reviewed: Yes Eye Exam: Normal Eyes: Positive: Conjunctiva Clear Neck: Positive: Supple Respiratory: Positive: No respiratory distress Musculoskeletal Exam: Normal Musculoskeletal: Positive: Strength Intact, ROM Intact Neurological Exam: Normal Neurological: Positive: Alert, Muscle Tone Normal Psychological Exam: Normal Psychological: Positive: Age Appropriate Behavior Skin: Positive: Other - Right hand and dorsal forearm are swollen. No erythema does not touch. Normal capillary refill patient is able to open and close her hand and range of motion of the wrist. Course/Dx - Course Course Of Treatment: LOCALIZED ALLERGIC REACTION TO INSECT BITE RIGHT HAND AND FOREARM; IMPROVING - Diagnoses Provider Diagnosis: Allergic reaction to insect bite Discharge - Sign-Out/Discharge Documenting (check all that apply): Patient Departure All imaging exams completed and their final reports reviewed: No Studies - Discharge Plan Condition: Stable Disposition: HOME Prescriptions: methylPREDNISolone [Medrol Dosepak 4 MG*] 0 mg PO .SEE DWIGHT INSTRUCTION #1 dwight Patient Education Materials: Allergies (ED) Referrals: Santa Bagley MD [Primary Care Provider] - Additional Instructions: TO TREAT LOCALIZED ALLERGIC REACTIONS TO AN INSECT BITE; OVER THE COUNTER ANTIHISTAMINES SUCH CLARATIN OR ZYRTEC BENADRYL 50MG EVERY 6 HOURS NEEDED. H2 BLOCKERS SUCH PEPCID 20MG TWICE A DAY NEEDED. TAKE THE METHYPREDNISOLONE (STEROID) DIRECTED NEEDED. FOLLOW UP WITH YOUR DOCTOR IF NOT COMPLETELY IMPROVED. GET RECHECKED SOONER IF YOUR CONDITION WORSENS OR ANY QUESTIONS OR CONCERNS. - Billing Disposition and Condition Condition: STABLE Disposition: Home
[2018-10-03 12:23] VITALS: BP 126/54
== END 2018-10-03 12:30 | disposition home or self-care (01) ==
LOC: UCEAST 10:02
DX: S60.561A Insect bite (nonvenomous) of right hand, initial encounter (principal); L08.9 Local infection of the skin and subcutaneous tissue, unspecified; W57.XXXA Bitten or stung by nonvenomous insect and other nonvenomous arthropods, initial encounter; Y92.9 Unspecified place or not applicable; I10 Essential (primary) hypertension; I48.91 Unspecified atrial fibrillation; Z87.891 Personal history of nicotine dependence
CPT/HCPCS: 99202; G0463

== ENCOUNTER 2019-07-15 10:12 | Inpatient (IN) | payer MEDICARE ==
--- NOTE | 2019-07-07 12:53 | HP ---
PREOPERATIVE HISTORY AND PHYSICAL: DATE OF SURGERY/ADMISSION: 07/15/19 DATE OF OFFICE VISIT/ENCOUNTER: 07/04/19 ATTENDING SURGEON: Patricia Smith MD * (DICTATED BY ROME DICKEY) PROCEDURE: Left total knee arthroplasty. HISTORY OF PRESENT ILLNESS: Ms. Madrigal is a 74-year-old female with end-stage osteoarthritis of the left knee. She has failed conservative treatment and has elected to proceed with a left total knee arthroplasty. Her [place] is Dr. Cotton. She has a nuclear stress test scheduled on 07/07/19 and clearance for surgery is pending on those results. Per Dr. Cotton, the patient will stop taking Xarelto and diclofenac 3 days ahead of surgery. PAST MEDICAL HISTORY: 1. Cholecystectomy. 2. Hypertension. 3. Atrial fibrillation. 4. History of breast cancer. PAST SURGICAL HISTORY: 1. Cardiac catheterization. 2. Right total hip arthroplasty. 3. Mastectomy. 4. Right carpal tunnel release. 5. Left knee arthroscopy. CURRENT MEDICATIONS: 1. Atorvastatin calcium 10 mg daily. 2. Bactrim DS 800-160 mg 1 tab twice a day for 3 days. 3. Diclofenac sodium 50 mg b.i.d. 4. Lisinopril 2.5 mg daily. 5. Metoprolol tartrate 25 mg daily. 6. Potassium chloride ER 10 mEq 1 capsule daily. 7. Propafenone HCl 150 mg 4 tablets daily. 8. Xarelto 20 mg daily. ALLERGIES: TYLENOL, the patient reports she has had trouble with her liver before taking TYLENOL. FAMILY HISTORY: Heart disease and cancer. SOCIAL HISTORY: The patient is retired. 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 She is former smoker. She quit 35 years ago. Prior to that she smoked for 20 years up to 2 packs per day. She denies recreational drug use and does not drink alcohol. REVIEW OF SYSTEMS: Negative for general, cephalic, cardiovascular, respiratory , GI/, other musculoskeletal, integumentary, endocrine, neurologic, and hematologic symptoms. She denies history of DVT, PE, hepatitis, HIV, or anesthesia problems. PHYSICAL EXAMINATION GENERAL: Well-developed, well-nourished 74-year-old female, in no acute distress. VITAL SIGNS: Height 5 feet 5-1/2 inches, weight 175 pounds. Pulse rate 57, blood pressure 109/61. HEENT: Normocephalic, atraumatic. Pupils are equal, round, and reactive to light and accommodation. Extraocular movements are intact. Throat is clear. NECK: Supple. No palpable lymph nodes. PULMONARY: Lungs are clear to auscultation bilaterally. No wheezes, rales, or rhonchi. CARDIOVASCULAR: Regular rate and rhythm. S1, S2. No murmurs, rubs, or gallops. No edema. ABDOMEN: Positive bowel sounds, soft, nontender. MUSCULOSKELETAL: On exam of her left knee, skin is intact. There are no abrasions or open wounds. She has a mild to moderate joint effusion. Range of motion from 5 to approximately 120 degrees of flexion. She has good motion in her ankle. Intact sensation and a 2+ dorsalis pedis pulse. NEUROLOGIC: Alert and oriented x3. Cranial nerves II through XII are intact. Sensation is intact to light touch. IMAGING STUDIES: X-rays of the left knee show end-stage osteoarthritic changes. IMPRESSION: As above. ASSESSMENT AND PLAN: Ms. Mardigal is a 74-year-old female with end-stage osteoarthritis of the left knee. She has failed conservative treatment and has elected to proceed with a left total knee arthroplasty. The surgery is scheduled for 07/15/[address] Smith. The patient will receive final clearance from her president [place] Dr. Cotton after upcoming nuclear stress test. She will stop taking Xarelto and diclofenac 3 days prior to surgery. Dr. Smith discussed the risks and benefits of the surgery at today's visit and all of her questions were answered. She will follow up with Dr. Smith 2 weeks after the surgery. ROME DICKEY [id number]/[facility] #: [id number] [facility]ay
[~2019-07-15 10:12] MED LIST: Buffered Lidocaine 1% SYRIN* 1 ML/SYRINGE INTRADERM ONE; Famotidine IV* 10 MG/ML 2 ML (20 mg) IV ONE; Lactated Ringers 1000 ML Bag* 1,000 ML IV SCH
[2019-07-15] MEDS ORDERED: Famotidine IV* 10 MG/ML 2 ML (20 mg) ONE (10:38)
[2019-07-15] MEDS ORDERED: Buffered Lidocaine 1% SYRIN* 1 ML/SYRINGE INTRADERM ONE (10:38)
[2019-07-15] MEDS ORDERED: ceFAZolin 2 GM in NS PREMIX(*) 2 GM/100 ML BAG IVPB ONE (10:38)
[2019-07-15 11:22] LABS: INR 1.09 (0.82-1.09)
[2019-07-15] MEDS ORDERED: Lidocaine 1% MPF ** 5 ML VIAL ONE (12:08)
[2019-07-15] MEDS ORDERED: ROPIVACAINE 5 MG/ML 30 ML BTL (0.5%) ONE ×2 (12:08→12:47)
[2019-07-15] MEDS ORDERED: Midazolam* 1 MG/ML 5 ML VIAL (5 MG) ONE (12:14)
[2019-07-15] MEDS ORDERED: KETAMINE HCL* 50 MG/ML 10 ML VIAL ONE (12:14)
[2019-07-15] MEDS ORDERED: fentaNYL* 50 MCG/ML 2 ML VIAL (100 MCG VIAL) ONE ×2 (12:14→13:32)
[2019-07-15] MEDS ORDERED: DiMENhydriNATE IV* 50 MG/ML VIAL ONE (13:05)
[2019-07-15] MEDS ORDERED: Dexamethasone IV* 4 MG/ML 1 ML (4 MG) ONE (13:05)
[2019-07-15] MEDS ORDERED: Ketorolac INJ* 30 MG/ML 1 ML VIAL ONE (13:05)
[2019-07-15] MEDS ORDERED: Lidocaine 2% PF * 5 ML VIAL ONE (13:05)
[2019-07-15] MEDS ORDERED: Ondansetron INJ* 2 MG/ML VIAL ONE (13:05)
[2019-07-15] MEDS ORDERED: Propofol* 10 MG/ML 20 ML BTL ONE (13:05)
[2019-07-15] MEDS ORDERED: Succinylcholine* 20 MG/ML 10 ML VIAL ONE (13:05)
[2019-07-15] MEDS ORDERED: Naloxone* 0.4 MG/ML 1 ML VIAL IV PRN (13:51)
[2019-07-15] MEDS ORDERED: DiMENhydriNATE IV* 50 MG/ML VIAL IV PUSH PRN (13:51)
[2019-07-15] MEDS ORDERED: HYDROmorphone INJ1* 1 MG/ML SYRINGE ONE ×2 (14:06→15:31)
--- NOTE | 2019-07-15 15:28 | PN ---
Progress Note - Progress Note Date of Service: 07/15/19 Note: resting comfortably, no complaints. Pain well controlled. Able to DF/PF, 2+ DP pulse and intact sensation
[2019-07-15] MEDS: HYDROmorphone INJ1* 1 MG/ML SYRINGE IV PRN ×5 (15:30→15:50)
[2019-07-15] MEDS ORDERED: oxyCODONE TAB* 5 MG TAB ONE ×2 (15:43→16:06)
[2019-07-15] MEDS: oxyCODONE TAB* 5 MG TAB PO PRN ×3 (15:45→21:31)
[2019-07-15] MEDS ORDERED: diPHENhydraMINE PO* 25 MG PO PRN (15:46)
[2019-07-15] MEDS ORDERED: Magnesium Hydroxide LIQ* 30 ML UDC PO PRN (15:46)
[2019-07-15] MEDS ORDERED: Ondansetron ODT TAB* 4 MG PO PRN (15:46)
[2019-07-15] MEDS ORDERED: diPHENhydraMINE IV* 50 MG/ML 1 ml VIAL (BENADRYL) IV PRN (15:46)
[2019-07-15] MEDS: Lactated Ringers 1000 ML Bag* 1,000 ML IV SCH (17:20)
--- NOTE | 2019-07-15 17:43 | OP ---
Operative Report - Blank - Operative Report Date of Operation: 07/15/19 Note: SHENG HICKEY 1945 Date of Surgery: 07/15/19 Patricia Smith MD Hurl Shaker: Demian PETER did help throughout the procedure with preparation of the knee, wound retraction, manipulation of the knee, and wound closure. Anesthesiologist: Dr. Whaley Anesthesia Type: General Preoperative Diagnosis: Left severe degenerative osteoarthritis of the knee Postoperative Diagnosis: As above Procedure Performed: Left Total Knee Arthroplasty Tourniquet time: 51 minutes Complications: None Specimen: Bone and cartilage from the left knee joint sent to pathology. Hardware Used: Cemented Darling and Nephew total knee hardware was used - For the femur a size 5 left oxinium legion posterior stabilized femoral component, for the tibia a size 3 left italo II tibial baseplate, for the insert a size 11mm 3-4 posterior stabilized articular polyethylene insert, and for the patella a size 32 3-peg all poly patella. Brief History/Indication: SHENG HICKEY was known in clinic and had a history of severe left knee pain and swelling. She failed conservative treatment with anti-inflammatories, pain pills, intra-articular injections and physical therapy. She elected to undergo left total knee arthroplasty due to continued pain and decreased quality of life. Radiographs showed severe end stage osteoarthritis of the knee with bone on bone contact. Informed consent was obtained from the patient. She understood the risks of surgery included but were not limited to: bleeding, infection, damage to nearby structures, intraoperative fracture, nerve palsy, failure of the hardware, early loosening, knee stiffness or loss of motion, anesthesia complications, stroke, heart attack , blood clot and . She wished to proceed. Intra-Operative Findings: Intraoperatively the patient was noted to have severe loss of cartilage in all 3 compartments of the knee. Description of the Procedure: SHENG HICKEY was identified in the preanesthesia unit. Her left knee was marked as the correct operative side. Informed consent was signed and placed in the chart. The patient was taken to the operating room and placed under anesthesia without complication. A spivey catheter was placed. A tourniquet was placed on the left thigh. The left lower extremity was prepped and draped in the usual sterile fashion. Preoperative time-out was made to correctly identify the patient, side and site. Appropriate intraoperative antibiotics were given within one hour of incision. Tourniquet was inflated. A midline incision was made and carried sharply down to the extensor mechanism. A new 10 blade was used to make a standard medial parapatellar arthrotomy. The patella was subluxed laterally. Electrocautery was used to dissect soft tissue off the superomedial tibia to the midsagittal plane. The knee was flexed up. The anterior horn of the lateral meniscus and the ACL were sharply incised. A drill was used to enter the distal femur. The intramedullary distal femoral cutting guide was pinned on the distal femur. The oscillating saw was used to make the distal femoral cut. The external rotation guide was pinned on the distal femur and the distal femur was sized to a size 5. The size 5 multi-cutting jig was pinned on the distal femur. The oscillating saw was used to make the appropriate 4 chamfer cuts. Next the PCL was completely released. The extramedullary tibial cutting guide was pinned on the proximal tibia and the oscillating saw was used to make the proximal tibial cut perpendicular to the mechanical axis of the tibia. The bone was carefully removed. The knee was brought out into full extension. The spacer block was placed and had excellent fit with the knee in full extension. The medial and lateral ligaments were well balanced. The flexion and extension gaps were well balanced. The knee was flexed up. Lamina production bow maker was placed both medially and laterally. Any remaining meniscus was removed with electrocautery. Curved osteotome was used to remove any posterior osteophytes. The tibial tray and drop jhonatan were placed and confirmed a satisfactory tibial cut. The size 5 left femoral trial was impacted onto the distal femur. This trial had excellent fit and stability. The box for the posterior stabilized implant was prepared using a box cut osteotome and a reamer. Next a tibial tray trial and 9 mm insert trial was placed. The knee was taken through a range of motion and had full extension to 130 degrees of flexion. Patellofemoral tracking was satisfactory. The patella was inverted and sized to a size 32. Three peg holes were drilled through the size 32 drill guide. The trial patella was placed and the knee was taken through a range of motion. There was satisfactory patellofemoral tracking. All trials were removed. The tibia was subluxed anteriorly and sized to a size 3. The proximal tibial was prepared with a size 3 keel punch. All bony cut surfaces were irrigated with sterile saline and dried. Final implants were cemented into place starting with the tibia, followed by the femur, and last the patella. A 11 mm insert trial was placed and the knee was brought into full extension. Tourniquet was turned down and the knee was copiously irrigated with sterile saline. Electrocautery was used to obtain meticulous hemostasis. Once the cement had fully cured, the insert trial was removed. Any excess cement was removed from around the hardware and capsule. Final insert chosen was a 11 mm posterior stabilized Italo II articular insert size 3-4. Stability of the insert was checked and noted to be stable. The extensor mechanism was closed using number 1 vicryls. The rest of the incision was closed in a layered fashion using 0 and 2-0 vicryls. The skin was closed using 3-0 nylon suture. Sterile xeroform, 4x4s and webril were used to cover the incision. Jarrod wrap and cold pack were used to cover the dressings. The patients anesthesia was reversed without difficulty. She was taken to the PACU in stable condition. Intended weight-bearing will be as tolerated.
[2019-07-15] MEDS: Cyclobenzaprine TAB* 10 MG PO PRN (18:24)
[2019-07-15] MEDS: Magnesium Hydroxide LIQ* 30 ML UDC PO SCH (21:30)
[2019-07-15] MEDS: Docusate CAP* 100 MG PO SCH (21:30)
[2019-07-15] MEDS: ceFAZolin 1 GM ADVAN(*) 1 GM in NS 0.9% 50 ML* 50 ML IVPB SCH (21:31)
--- NOTE | 2019-07-15 22:53 | CONS ---
HOSPITAL MEDICINE CONSULTATION REPORT: DATE OF CONSULT: 07/15/19 PROVIDER: Alyssa Mckeon NP ATTENDING PHYSICIAN: Dr. Patricia Smith. CONSULTING PHYSICIAN: Dr. Dana Schroeder (dictated by Alyssa Mckeon NP) REASON FOR CONSULT: Comanagement of chronic medical conditions. HISTORY OF PRESENT ILLNESS: Ms. Madrigal is a 74-year-old female with past medical history significant for hypertension, history of atrial fibrillation, history of breast cancer, who presented to [facility] for left total knee arthroplasty with Dr. Smith. Please see dictated H and P from ROME Hong, for complete details. In brief, the patient had ongoing pain, failed conservative measures, therefore, opted to have a left total knee arthroplasty with Dr. Smith. In the immediate postoperative period, the patient has no complaints. She denies any recent illnesses. She denies any fever, chills, chest pain, shortness of breath. Denies any nausea, vomiting, diarrhea, abdominal pain. Denies any gross hematuria, dysuria. Denies any urinary frequency, urgency, or pain with urination. Due to the patient's history of hypertension and atrial fibrillation, Hospital Medicine is asked to see in consult during this hospitalization. PAST MEDICAL HISTORY: Significant for hypertension, atrial fibrillation, history of breast cancer. PAST SURGICAL HISTORY: Cardiac catheterization, right total hip replacement, left mastectomy, right carpal tunnel, and left knee surgery. HOME MEDICATIONS: Include: 1. Atorvastatin 10 mg p.o. daily. 2. Diclofenac 50 mg p.o. daily. 3. Lisinopril 2.5 mg p.o. daily. 4. Metoprolol 25 mg p.o. daily. 5. Potassium 10 mEq p.o. daily. 6. Propafenone 150 mg 4 tablets as needed for atrial fibrillation. 7. Xarelto 20 mg p.o. daily. ALLERGIES: To TYLENOL. FAMILY HISTORY: Father with an NV in his 50s. No reported history of diabetes. Mother had breast cancer. SOCIAL HISTORY: The patient reports that she quit smoking 38 years ago. Denies any alcohol or illicit drug use. Surrogate decision maker in the event she is unable to make her own decisions is her . She is a full code. REVIEW OF SYSTEMS: An 11-point review of systems was completed. All pertinent positives were mentioned in the HPI. Otherwise were negative. PHYSICAL EXAM: General: At this time, Ms. Madrigal is alert and oriented, resting in her bed in PACU. She is in no acute distress. Vital Signs: Blood pressure 122/54, heart rate 57, respirations were 14, O2 saturation 96%, temperature was 98.5. HEENT: Head is atraumatic, normocephalic. Eyes: EOMs are intact. Sclerae anicteric and not pale. Oral mucosa is moist. Neck is supple. Lungs are clear to auscultation bilaterally. No wheezes, rales, or rhonchi. Cardiac: S1, S2. Regular rate and rhythm. No rubs or gallops. Abdomen is soft and nontender. Bowel sounds are present x4. Extremities: She is able to move all 4 extremities. There is no clubbing or cyanosis. She does have a dressing that was dry and intact to her left knee. Pedal pulses are +2 bilaterally. Neurologic: She is awake, alert, oriented x3. Speech is clear. Thought process is intact. Skin: She does have a dressing that is dry and intact to the left knee. DIAGNOSTIC STUDIES/LAB DATA: INR was 1.09. CBC from 06/03/19: WBCs were 7.9, RBCs 4.10, hemoglobin 12.6, hematocrit was 37, platelet count was 185. Sodium was 139, potassium 4.1, chloride 105, carbon dioxide was 29, anion gap was 5, BUN was 27, creatinine 0.96, glucose was 76. ASTs were 21, ALTs were 19, alkaline phosphatase was 92. Urine showed 1+ blood, 3+ leukocyte esterase, 3+ wbc's, 2+ rbc's, squamous epithelial cells were present, bacteria was 1+. Urine showed mixed growth on the culture from 07/04/19. IMPRESSION AND PLAN: Ms. Madrigal is a 74-year-old female with a past medical history significant for hypertension, atrial fibrillation, who presented to [facility] for an elective left total knee arthroplasty with Dr. Smith. Our recommendations are as follows: 1. Status post left total knee arthroplasty. Management per Orthopedics. PT/ OT per Orthopedics. Bowel regimen per Orthopedics. Pain management per Orthopedics. DVT prophylaxis per Orthopedics. 2. Hypertension. I am going to hold her lisinopril 2.5 mg. We will continue her on metoprolol 25 mg p.o. daily with holding for systolic blood pressure less than 110. 3. History of atrial fibrillation. The patient will continue on metoprolol 25 mg p.o. daily. She is currently in sinus rhythm in the 50s in PACU. She should also resume her Xarelto as soon as possible. Keep her magnesium close at 2.0 as well as her potassium at 4.0. 4. FEN: She can have a heart healthy, caffeine-okay diet. 5. Code status: She is a full code. 6. DVT prophylaxis: As per Orthopedics. TIME SPENT: Time spent on this consultation was 45 minutes, greater than half that time was spent at the bedside reviewing events leading thus far to her hospitalization, performing physical exam, and reviewing my plan of care. I have discussed this with my attending, Dr. Dana Schroeder; she is in agreement with my plan. ALYSSA MCKEON, KEITH [id number]/[facility] #: [id number] SILVIA
[2019-07-16] MEDS: oxyCODONE TAB* 5 MG TAB PO PRN ×5 (03:30→21:09)
[2019-07-16] MEDS: Lactated Ringers 1000 ML Bag* 1,000 ML IV SCH (03:31)
[2019-07-16] MEDS: ceFAZolin 1 GM ADVAN(*) 1 GM in NS 0.9% 50 ML* 50 ML IVPB SCH ×2 (05:07→15:12)
[2019-07-16 06:44] LABS: Hematocrit 23 % (35-47); Hemoglobin 7.8 g/dL (12.0-16.0); Mean Platelet Volume 8.2 fL (7.4-10.4); Platelet Count 147 10^3/uL (150-450)
[2019-07-16 07:01] LABS: BUN/Creatinine Ratio 26.5 (8-20); EGFR African American 80.9 (>60); EGFR Non-African American 66.8 (>60); Potassium 4.2 mmol/L (3.5-5.0)
[2019-07-16] MEDS: Magnesium Hydroxide LIQ* 30 ML UDC PO SCH ×2 (08:23→21:09)
[2019-07-16] MEDS: Vitamin THERAPEUTIC TAB PO SCH (08:23)
[2019-07-16] MEDS: Docusate CAP* 100 MG PO SCH ×2 (08:23→21:09)
[2019-07-16] MEDS: Atorvastatin* 10 MG TAB PO SCH (08:23)
[2019-07-16] MEDS: Potassium Chlor TAB* 10 MEQ TAB.ER PO SCH (08:23)
[2019-07-16] MEDS: Rivaroxaban TAB(*) 20 MG TAB PO SCH (08:23)
[2019-07-16] MEDS ORDERED: Lisinopril TAB* 5 MG PO SCH (09:00)
[2019-07-16] MEDS ORDERED: Metoprolol Tartrate TAB* 25 MG PO SCH (09:00)
--- NOTE | 2019-07-16 09:34 | PN ---
Progress Note - Progress Note Date of Service: 07/16/19 SOAP: Subjective: []Pt seen at bedside, she is sitting at edge of the bed with nursing, position change has made her feel dizzy. She also reports feeling SOB without CP or irregular heartbeats. Returned to laying down in bed, SOB and dizziness resolved. Knee pain with any movement, comfortable at rest. Objective: []Gen: NAD, normal rate and effort of breathing Cardiac: S1S2, RRR Resp: CTA BL LLE: Left knee dressing CDI, thigh soft, DF/PF intact, DP2+, sensation intact to light touch distally Calves supple and nontender without erythema, edema or palpable cords Assessment: []POD 1 sp LTK Plan: []WBAT PT Home dose of xarelto 20 mg qd was given already this morning. Anticipate may need to hold tomorrow depending on H&H SOB, dizzy: ordered Mg, cxr, ekg now. repeat H&H at 1300. Tele monitor ordered. Hospitalist paged, further studies per their discretion. Slow transitions. Hold off working with PT until sx resolve Vital Signs Temp 98.3 F 07/16/19 07:23 Pulse 70 07/16/19 09:28 Resp 18 07/16/19 08:00 BP 103/50 07/16/19 09:28 Pulse Ox 100 07/16/19 09:17 Intake & Output 07/15/19 07/16/19 07/16/19 18:59 06:59 18:59 Intake Total 1500 1809 200 Output Total 650 350 Balance 850 1459 200 Weight 174 lb Intake: IV Fluids 1500 980 LR 980 lr 1500 IVPB 109 ABX - CEFAZOLIN 109 Oral 720 200 Output: Urine 150 Michele 400 200 Estimated Blood Loss 250
[2019-07-16 09:51] LABS: Magnesium 1.8 mg/dL (1.9-2.7)
[2019-07-16] MEDS: Metoprolol Tartrate TAB* 25 MG PO SCH (09:57)
--- NOTE | 2019-07-16 10:34 | PN ---
Subjective Date of Service: 07/16/19 Interval History: Pt c/o SOB and dizziness this morning. States that this has since resolved. Currently denies any CP, headache, SOB, dizziness, abdominal discomfort, unusual numbness/tingling. She states this episode happened after getting up and while she was sitting in the chair. States that staff got her back to bed because she was so dizzy. She does have a hx of AFib. She states that she does not always know when she is in AFib and that her last "attack" was almost 3 years ago and that she has passed out in the past while in AFib. She also is on Xarelto at home and did get a dose of it this morning. Objective Active Medications: Atorvastatin Calcium (Lipitor*) 10 mg PO QAM COUNT INCLUDES THE [facility] Last Admin: 07/16/19 08:23 Dose: 10 mg Bisacodyl (Dulcolax Supp*) 10 mg [place] DAILY PRN PRN Reason: CONSTIPATION Cyclobenzaprine HCl (Flexeril Tab*) 10 mg PO Q6H PRN PRN Reason: SPASMS Last Admin: 07/15/19 18:24 Dose: 10 mg Diphenhydramine HCl (Benadryl Iv*) 25 mg IV Q6H PRN PRN Reason: PRURITIS Diphenhydramine HCl (Benadryl Po*) 25 mg PO Q6H PRN PRN Reason: PRURITIS Docusate Sodium (Colace Cap*) 100 mg PO BID COUNT INCLUDES THE [facility] Last Admin: 07/16/19 08:23 Dose: 100 mg Cefazolin Sodium 1 gm/ Sodium (Chloride) 50 mls @ 200 mls/hr IVPB Q8H COUNT INCLUDES THE [facility] Stop: 07/16/19 13:14 Last Admin: 07/16/19 05:07 Dose: 200 mls/hr Lactated Ringer's (Lactated Ringers 1000 Ml Bag*) 1,000 mls @ 100 mls/hr IV PER RATE COUNT INCLUDES THE [facility] Last Admin: 07/16/19 03:31 Dose: 100 mls/hr Lactulose (Lactulose*) 30 ml PO BID PRN PRN Reason: CONSTIPATION Magnesium Hydroxide (Milk Of Magnesia Liq*) 30 ml PO BID COUNT INCLUDES THE [facility] Last Admin: 07/16/19 08:23 Dose: 30 ml Magnesium Hydroxide (Milk Of Magnesia Liq*) 30 ml PO Q6H PRN PRN Reason: CONSTIPATION Metoprolol Tartrate (Lopressor Tab*) 25 mg PO QAM COUNT INCLUDES THE [facility] Last Admin: 07/16/19 09:57 Dose: Not Given Morphine Sulfate (Morphine Inj (Syringe))*) 2 mg IV Q4H PRN PRN Reason: Pain - Unrelieved Multivitamins (Theragran Tab*) 1 tab PO DAILY COUNT INCLUDES THE [facility] Last Admin: 07/16/19 08:23 Dose: 1 tab Ondansetron HCl (Zofran Inj*) 4 mg IV Q6H PRN PRN Reason: NAUSEA Ondansetron HCl (Zofran Odt Tab*) 4 mg PO Q6H PRN PRN Reason: NAUSEA Ondansetron HCl (Zofran Tab*) 4 mg PO Q6H PRN PRN Reason: NAUSEA Oxycodone HCl (Roxycodone Tab*) 5 mg PO Q4H PRN PRN Reason: PAIN - SEVERE Last Admin: 07/16/19 07:37 Dose: 5 mg Polyethylene Glycol/Electrolytes (Miralax (17 Gm Dose Shiraz)) 17 gm PO DAILY PRN PRN Reason: Constipation Potassium Chloride (Klor Con Er Tab*) 10 meq [facility] [place] Last Admin: 07/16/19 08:23 Dose: 10 meq Propafenone HCl (Rythmol 150 Mg Tab) 600 mg PO ONCE PRN PRN Reason: AFIB Rivaroxaban (Xarelto(*)) 20 mg PO DAILY WITH MEAL COUNT INCLUDES THE [facility] Last Admin: 07/16/19 08:23 Dose: 20 mg Tramadol HCl (Ultram*) 50 mg PO Q6H PRN PRN Reason: PAIN - MODERATE Vital Signs - 8 hr 07/16/19 07/16/19 07/16/19 03:30 03:34 05:48 Temperature 97.8 F Pulse Rate 68 Respiratory 16 16 Rate Blood Pressure 119/42 (mmHg) O2 Sat by Pulse 98 Oximetry 07/16/19 07/16/19 07/16/19 06:18 07:23 07:26 Temperature 98.3 F Pulse Rate 67 Respiratory 16 16 Rate Blood Pressure 100/39 112/52 (mmHg) O2 Sat by Pulse 100 Oximetry 07/16/19 07/16/19 07/16/19 07:37 08:00 09:17 Temperature Pulse Rate 79 Respiratory 18 18 Rate Blood Pressure 90/43 (mmHg) O2 Sat by Pulse 100 100 Oximetry 07/16/19 07/16/19 09:28 09:58 Temperature Pulse Rate 70 Respiratory 18 Rate Blood Pressure 103/50 (mmHg) O2 Sat by Pulse Oximetry Oxygen Devices in Use Now: None Appearance: Sitting up in bed, guarded, appears mildly anxious Eyes: No Scleral Icterus, - - PERRL Ears/Nose/Mouth/Throat: Clear Oropharnyx Respiratory: Symmetrical Chest Expansion and Respiratory Effort, Clear to Auscultation Cardiovascular: RRR Abdominal: NL Sounds; No Tenderness; No Distention Extremities: - - 2+ non-pitting edema LLE, no edema RLE Skin: - - incision to L knee covered with dressing, CDI Neurological: Alert and Oriented x 3 Nutrition: Taking PO's Result Diagrams: 07/16/19 12:15 07/16/19 06:36 Assess/Plan/Problems-Billing Assessment: is a 74yo F with pmhx significant for HTN, AFib, hx breast CA. She had an elective L TKR with on 07/15/19 and was admitted to [facility]. - Patient Problems (1) Status post total left knee replacement Current Visit: Yes Status: Acute Code(s): Z96.652 - PRESENCE OF LEFT ARTIFICIAL KNEE JOINT SNOMED Code(s): 8053661585134 Comment: Pain management, bowel management, incision management per orthopedics. (2) Dizziness Current Visit: Yes Status: Acute Code(s): R42 - DIZZINESS AND GIDDINESS SNOMED Code(s): 636637537 Comment: Chest XRay shows no active cardiopulmonary disease EKG - NSR with no ischemic changes telemetry monitoring d/t hx afib HH 7.8/ this morning, 8.5/ this afternoon, continued to feel dizzy with movement after 1L IVF bolus, 1unit PRBC ordered by ortho (3) SOB (shortness of breath) Current Visit: Yes Status: Acute Code(s): R06.02 - SHORTNESS OF BREATH SNOMED Code(s): 189057990 Comment: See above, will likely improve with administration of fluids and PRBC O2 therapy as needed per protocol (4) Anemia due to acute blood loss Current Visit: Yes Status: Acute Code(s): D62 - ACUTE POSTHEMORRHAGIC ANEMIA SNOMED Code(s): 208768531 Comment: 1 unit PRBC ordered by ortho labs to be drawn in a.m. (5) History of atrial fibrillation Current Visit: Yes Status: Acute Code(s): Z86.79 - PERSONAL HISTORY OF OTHER DISEASES OF THE CIRCULATORY SYSTEM SNOMED Code(s): 144056308 Comment: Continue metoprolol with hold parameters (6) Hypomagnesemia Current Visit: Yes Status: Acute Code(s): E83.42 - HYPOMAGNESEMIA SNOMED Code(s): 482105481 Comment: Mg 1.8 Mg sulfate 2gm IV ordered Labs to be drawn in a.m. (7) Full code status Current Visit: Yes Status: Acute Code(s): Z78.9 - OTHER SPECIFIED HEALTH STATUS SNOMED Code(s): 165302189 (8) DVT prophylaxis Current Visit: Yes Status: Acute Code(s): Z29.9 - ENCOUNTER FOR PROPHYLACTIC MEASURES, UNSPECIFIED SNOMED Code(s): 825628321 Comment: miroslava, again will continue to monitor HH SCDs Status and Disposition: status: fair but stable disposition: [facility] Attending: Dana Schroeder
[2019-07-16] MEDS: Ondansetron INJ* 2 MG/ML VIAL IV PRN (11:02)
[2019-07-16] MEDS ORDERED: Magnesium Sulfate 2 GM IV* 2 GM/50 ML BAG IVPB ONE (11:36)
[2019-07-16 12:35] LABS: Hematocrit 25 % (35-47); Hemoglobin 8.5 g/dL (12.0-16.0)
[2019-07-16] MEDS ORDERED: NS 0.9% 1000 ML** 1,000 ML IV ONE (12:43)
[2019-07-16] MEDS: Cyclobenzaprine TAB* 10 MG PO PRN (15:13)
[2019-07-16] MEDS: traMADol TAB* 50 MG PO PRN (18:24)
[2019-07-17] MEDS: oxyCODONE TAB* 5 MG TAB PO PRN ×5 (02:40→20:33)
[2019-07-17] MEDS: Morphine INJ* 2 MG/ML 1 ML SYRINGE (TWO MG - NEW SYRINGE VERSION) IV PRN (06:24)
[2019-07-17] MEDS: traMADol TAB* 50 MG PO PRN (06:24)
[2019-07-17 06:50] LABS: ABS Basophils 0.1 10^3/ul (0-0.2); ABS Lymphocytes 1.2 10^3/ul (1.0-4.8); ABS Monocytes 1.1 10^3/ul (0-0.8); ABS Neutrophils 8.7 10^3/ul (1.5-7.7); Eosinophil % 0.1 %; Hematocrit 29 % (35-47); Hemoglobin 9.8 g/dL (12.0-16.0); Lymphocyte % 10.9 %; Mean Corpuscular HGB Conc 34 g/dL (31-36); Mean Corpuscular Hemoglobin 31 pg (27-31); Mean Corpuscular Volume 91 fL (80-97); Mean Platelet Volume 8.7 fL (7.4-10.4); Platelet Count 149 10^3/uL (150-450); Red Blood Count 3.16 10^6 /uL (3.70-4.87); Red Cell Distribution Width 15 % (10-15); White Blood Count 11.1 10^3/uL (3.5-10.8)
[2019-07-17 07:07] LABS: BUN/Creatinine Ratio 14.1 (8-20); Calcium 8.1 mg/dL (8.6-10.3); EGFR African American 78.7 (>60); Magnesium 2.1 mg/dL (1.9-2.7); Potassium 3.9 mmol/L (3.5-5.0)
[2019-07-17] MEDS: Docusate CAP* 100 MG PO SCH ×2 (08:10→20:33)
[2019-07-17] MEDS: Potassium Chlor TAB* 10 MEQ TAB.ER PO SCH (08:10)
[2019-07-17] MEDS: Magnesium Hydroxide LIQ* 30 ML UDC PO SCH ×2 (08:10→22:24)
[2019-07-17] MEDS: Vitamin THERAPEUTIC TAB PO SCH (08:10)
[2019-07-17] MEDS: Atorvastatin* 10 MG TAB PO SCH (08:10)
[2019-07-17] MEDS: Metoprolol Tartrate TAB* 25 MG PO SCH (08:10)
[2019-07-17] MEDS ORDERED: Magnesium Oxide TAB* 400 MG PO SCH (09:00)
--- NOTE | 2019-07-17 09:15 | PN ---
Progress Note - Progress Note Date of Service: 07/17/19 SOAP: Subjective: []Pt seen and examined at bedside. She had 1 unit pRBC last night and overall feels better today without CP, SOB, dizziness, nausea. Remains fatigued. Reports continued L knee pain. Objective: []Gen: NAD LLE: Left knee dressing changed, incision is CDI, thigh soft, DF/PF intact, DP2+ , sensation intact to light touch distally Calves supple and nontender without erythema, edema or palpable cords Assessment: []POD 2 sp LTK Plan: []WBAT PT Okay to give home dose of xarelto 20 mg qd. Will continue to monitor H&H Adding ms contin 15 mg qd plan for dc rehab, placement pending Vital Signs Temp 99.3 F 07/17/19 08:01 Pulse 85 07/17/19 08:01 Resp 18 07/17/19 08:13 BP 119/45 07/17/19 08:01 Pulse Ox 95 07/17/19 08:01 Intake & Output 07/16/19 07/17/19 07/17/19 18:59 06:59 18:59 Intake Total 2911 700 360 Output Total 600 1100 Balance 2311 -400 360 Intake: IV Fluids 2051 ABX - CEFAZOLIN 55 LR 956 NS (0.9%) 990 mag 50 Oral 860 700 360 Output: Urine 600 1100 Other: Estimated Void Small Estimated Stool Amount Small # Voids 1 Laboratory Last Values WBC 11.1 10^3/uL (3.5-10.8) H 07/17/19 06:34 RBC 3.16 10^6 /uL (3.70-4.87) L 07/17/19 06:34 Hgb 9.8 g/dL (12.0-16.0) L 07/17/19 06:34 Hct 29 % (35-47) L 07/17/19 06:34 MCV 91 fL (80-97) 07/17/19 06:34 MCH 31 pg (27-31) 07/17/19 06:34 MCHC 34 g/dL (31-36) 07/17/19 06:34 RDW 15 % (10-15) 07/17/19 06:34 Plt Count 149 10^3/uL (150-450) L 07/17/19 06:34 MPV 8.7 fL (7.4-10.4) 07/17/19 06:34 Neut % (Auto) 78.2 % 07/17/19 06:34 Lymph % (Auto) 10.9 % 07/17/19 06:34 [place] % (Auto) 10.2 % 07/17/19 06:34 Eos % (Auto) 0.1 % 07/17/19 06:34 Baso % (Auto) 0.6 % 07/17/19 06:34 Absolute Neuts (auto) 8.7 10^3/ul (1.5-7.7) H 07/17/19 06:34 Absolute Lymphs (auto) 1.2 10^3/ul (1.0-4.8) 07/17/19 06:34 Absolute Monos (auto) 1.1 10^3/ul (0-0.8) H 07/17/19 06:34 Absolute Eos (auto) 0.0 10^3/ul (0-0.6) 07/17/19 06:34 Absolute Basos (auto) 0.1 10^3/ul (0-0.2) 07/17/19 06:34 Absolute Nucleated RBC 0.0 10^3/ul 07/17/19 06:34 Nucleated RBC % 0.0 07/17/19 06:34 INR (Anticoag Therapy) 1.09 (0.82-1.09) 07/15/19 11:07 Sodium 135 mmol/L (135-145) 07/17/19 06:34 Potassium 3.9 mmol/L (3.5-5.0) 07/17/19 06:34 Chloride 100 mmol/L (101-111) L 07/17/19 06:34 Carbon Dioxide 28 mmol/L (22-32) 07/17/19 06:34 Anion Gap 7 mmol/L (2-11) 07/17/19 06:34 BUN 12 mg/dL (6-24) 07/17/19 06:34 Creatinine 0.85 mg/dL (0.51-0.95) 07/17/19 06:34 Est GFR ( Amer) 78.7 (>60) 07/17/19 06:34 Est GFR (Non-Af Amer) 65.0 (>60) 07/17/19 06:34 BUN/Creatinine Ratio 14.1 (8-20) 07/17/19 06:34 Glucose 133 mg/dL (70-100) H 07/17/19 06:34 Calcium 8.1 mg/dL (8.6-10.3) L 07/17/19 06:34 Magnesium 2.1 mg/dL (1.9-2.7) 07/17/19 06:34 Blood Type O Positive 07/16/19 06:35 Antibody Screen Negative 07/16/19 06:35 Crossmatch See Detail 07/16/19 06:35
[2019-07-17] MEDS: Rivaroxaban TAB(*) 20 MG TAB PO SCH (09:36)
--- NOTE | 2019-07-17 12:51 | PN ---
Subjective Date of Service: 07/17/19 Interval History: Pt states that she is feeling rather sleepy and has low appetite but otherwise feels much better than she did yesterday, no more dizziness or SOB. States she has been regularly drinking water. States dressing to L knee was changed earlier today. Currently denies any headache, CP, SOB, N/V/D, difficulty urinating, numbness/ tingling. Objective Active Medications: Atorvastatin Calcium (Lipitor*) 10 mg PO QAM [facility] Last Admin: 07/17/19 08:10 Dose: 10 mg Bisacodyl (Dulcolax Supp*) 10 mg MD DAILY PRN PRN Reason: CONSTIPATION Cyclobenzaprine HCl (Flexeril Tab*) 10 mg PO Q6H PRN PRN Reason: SPASMS Last Admin: 07/16/19 15:13 Dose: 10 mg Diphenhydramine HCl (Benadryl Iv*) 25 mg IV Q6H PRN PRN Reason: PRURITIS Diphenhydramine HCl (Benadryl Po*) 25 mg PO Q6H PRN PRN Reason: PRURITIS Docusate Sodium (Colace Cap*) 100 mg PO BID [facility] Last Admin: 07/17/19 08:10 Dose: 100 mg Lactated Ringer's (Lactated Ringers 1000 Ml Bag*) 1,000 mls @ 100 mls/hr IV PER RATE [facility] Last Admin: 07/16/19 03:31 Dose: 100 mls/hr Lactulose (Lactulose*) 30 ml PO BID PRN PRN Reason: CONSTIPATION Magnesium Hydroxide (Milk Of Magnesia Liq*) 30 ml PO BID [facility] Last Admin: 07/17/19 08:10 Dose: 30 ml Magnesium Hydroxide (Milk Of Magnesia Liq*) 30 ml PO Q6H PRN PRN Reason: CONSTIPATION Metoprolol Tartrate (Lopressor Tab*) 25 mg PO QAM [facility] Last Admin: 07/17/19 08:10 Dose: 25 mg Morphine Sulfate (Morphine Inj (Syringe))*) 2 mg IV Q4H PRN PRN Reason: Pain - Unrelieved Last Admin: 07/17/19 06:24 Dose: 2 mg Multivitamins (Theragran Tab*) 1 tab PO DAILY [facility] Last Admin: 07/17/19 08:10 Dose: 1 tab Ondansetron HCl (Zofran Inj*) 4 mg IV Q6H PRN PRN Reason: NAUSEA Last Admin: 07/16/19 11:02 Dose: 4 mg Ondansetron HCl (Zofran Odt Tab*) 4 mg PO Q6H PRN PRN Reason: NAUSEA Ondansetron HCl (Zofran Tab*) 4 mg PO Q6H PRN PRN Reason: NAUSEA Oxycodone HCl (Roxycodone Tab*) 5 mg PO Q4H PRN PRN Reason: PAIN - SEVERE Last Admin: 07/16/19 16:58 Dose: 5 mg Oxycodone HCl (Roxycodone Tab*) 10 mg PO Q4H PRN PRN Reason: PAIN - MORE SEVERE Last Admin: 07/17/19 12:04 Dose: 10 mg Polyethylene Glycol/Electrolytes (Miralax (17 Gm Dose Shiraz)) 17 gm PO DAILY PRN PRN Reason: Constipation Potassium Chloride (Klor Con Er Tab*) 10 meq PO QAM [facility] Last Admin: 07/17/19 08:10 Dose: 10 meq Rivaroxaban (Xarelto(*)) 20 mg PO DAILY WITH MEAL [facility] Last Admin: 07/17/19 09:36 Dose: 20 mg Tramadol HCl (Ultram*) 50 mg PO Q6H PRN PRN Reason: PAIN - MODERATE Last Admin: 07/17/19 06:24 Dose: 50 mg Vital Signs - 8 hr 07/17/19 07/17/19 07/17/19 05:14 06:24 07:19 Temperature Pulse Rate Respiratory 18 18 18 Rate Blood Pressure (mmHg) O2 Sat by Pulse Oximetry 07/17/19 07/17/19 07/17/19 07:58 08:00 08:01 Temperature 99.3 F Pulse Rate 85 Respiratory 18 18 17 Rate Blood Pressure 119/45 (mmHg) O2 Sat by Pulse 99 95 Oximetry 07/17/19 07/17/19 07/17/19 08:10 08:13 10:48 Temperature Pulse Rate Respiratory 18 18 18 Rate Blood Pressure (mmHg) O2 Sat by Pulse Oximetry 07/17/19 07/17/19 10:58 12:04 Temperature 97.9 F Pulse Rate 82 Respiratory 16 18 Rate Blood Pressure 108/47 (mmHg) O2 Sat by Pulse 95 Oximetry Oxygen Devices in Use Now: None Appearance: sitting up in chair, NAD Eyes: - - PERRL, contacts in bilaterally Ears/Nose/Mouth/Throat: Clear Oropharnyx Respiratory: Symmetrical Chest Expansion and Respiratory Effort, Clear to Auscultation Cardiovascular: RRR - grade 3/6 systolic murmur best heard midclavicular near audible tricuspid region Abdominal: NL Sounds; No Tenderness; No Distention Extremities: - - 2+ non-pitting edema LLE, no edema RLE Skin: - - Dressing covering L knee incision, CDI Neurological: Alert and Oriented x 3 Nutrition: Taking PO's Result Diagrams: 07/17/19 06:34 07/17/19 06:34 Assess/Plan/Problems-Billing Assessment: is a 74yo F with pmhx significant for HTN, AFib, hx breast CA. She had an elective L TKR with on 07/15/19 and was admitted to [facility]. - Patient Problems (1) Status post total left knee replacement Current Visit: Yes Status: Acute Code(s): Z96.652 - PRESENCE OF LEFT ARTIFICIAL KNEE JOINT SNOMED Code(s): 6919838258441 Comment: Pain management, bowel management, incision management per orthopedics. (2) Dizziness Current Visit: Yes Status: Acute Code(s): R42 - DIZZINESS AND GIDDINESS SNOMED Code(s): 894510062 Comment: Episode on 07/15, had received 1L IVF bolus and 1unit PRBC, has since resolved (3) SOB (shortness of breath) Current Visit: Yes Status: Acute Code(s): R06.02 - SHORTNESS OF BREATH SNOMED Code(s): 993598561 Comment: Episode on 07/15, had received 1L IVF bolus and 1unit PRBC, has since resolved (4) Anemia due to acute blood loss Current Visit: Yes Status: Acute Code(s): D62 - ACUTE POSTHEMORRHAGIC ANEMIA SNOMED Code(s): 949335134 Comment: 1 unit PRBC on 07/15 for symptomatic anemia HH 9.8 this morning, improved, pt remains asymptomatic, hemodynamically stable -HH trend ordered by ortho (5) History of atrial fibrillation Current Visit: Yes Status: Acute Code(s): Z86.79 - PERSONAL HISTORY OF OTHER DISEASES OF THE CIRCULATORY SYSTEM SNOMED Code(s): 721949510 Comment: Continue metoprolol with hold parameters (6) Hypomagnesemia Current Visit: Yes Status: Acute Code(s): E83.42 - HYPOMAGNESEMIA SNOMED Code(s): 252569597 Comment: resolved (7) Fever Current Visit: Yes Status: Acute Code(s): R50.9 - FEVER, UNSPECIFIED SNOMED Code(s): 502850668 Comment: temp 100.9, has had mild elevations throughout the day, does not yet meet any other SIRS criteria at this time however it is reasonable to get a workup to investigate for any potential cause of infection - blood cultures - U/A - CXR (8) Full code status Current Visit: Yes Status: Acute Code(s): Z78.9 - OTHER SPECIFIED HEALTH STATUS SNOMED Code(s): 814805595 (9) DVT prophylaxis Current Visit: Yes Status: Acute Code(s): Z29.9 - ENCOUNTER FOR PROPHYLACTIC MEASURES, UNSPECIFIED SNOMED Code(s): 341378616 Comment: miroslava, again will continue to monitor HH SCDs Status and Disposition: status: stable disposition: [facility] Attending: Jimy Hardy
[2019-07-17 18:46] LABS: Urine Appearance Clear; Urine Bilirubin Negative (Negative); Urine Blood 1+ (Negative); Urine Color Yellow; Urine Glucose Negative (Negative); Urine Ketones Negative (Negative); Urine Nitrite Negative (Negative); Urine Protein Negative (Negative); Urine Specific Gravity 1.006 (1.010-1.030); Urine Urobilinogen Negative (Negative)
[2019-07-17 18:53] LABS: Urine Bacteria Absent (Absent); Urine Red Blood Cell Trace(0-2/hpf) (Absent); Urine Squamous Epithelial Cell Present (Absent); Urine White Blood Cell 1+(6-10/hpf) (Absent)
[2019-07-18] MEDS: oxyCODONE TAB* 5 MG TAB PO PRN ×6 (00:27→22:13)
[2019-07-18 07:02] LABS: Hematocrit 25 % (35-47); Hemoglobin 8.8 g/dL (12.0-16.0); Mean Platelet Volume 8.9 fL (7.4-10.4); Platelet Count 152 10^3/uL (150-450)
[2019-07-18 08:02] LABS: White Blood Count 10.8 10^3/uL (3.5-10.8)
[2019-07-18] MEDS: Docusate CAP* 100 MG PO SCH ×2 (09:41→21:03)
[2019-07-18] MEDS: Polyethylene Glycol 3350* 17 GM PACKET PO PRN (09:41)
[2019-07-18] MEDS: Potassium Chlor TAB* 10 MEQ TAB.ER PO SCH (09:41)
[2019-07-18] MEDS: Cyclobenzaprine TAB* 10 MG PO PRN ×2 (09:41→18:08)
[2019-07-18] MEDS: Vitamin THERAPEUTIC TAB PO SCH (09:42)
[2019-07-18] MEDS: Lisinopril TAB* 5 MG PO SCH (09:42)
[2019-07-18] MEDS: Metoprolol Tartrate TAB* 25 MG PO SCH (09:42)
[2019-07-18] MEDS: Atorvastatin* 10 MG TAB PO SCH (09:42)
[2019-07-18] MEDS: Rivaroxaban TAB(*) 20 MG TAB PO SCH (09:42)
[2019-07-18] MEDS: Magnesium Hydroxide LIQ* 30 ML UDC PO SCH ×2 (09:47→21:03)
[2019-07-18] MEDS: Morphine INJ* 2 MG/ML 1 ML SYRINGE (TWO MG - NEW SYRINGE VERSION) IV PRN (10:58)
--- NOTE | 2019-07-18 12:04 | PN ---
Progress Note - Progress Note Date of Service: 07/18/19 SOAP: Subjective: Pt seen and examined at bedside. Denies any CP, SOB, dizziness, nausea. States that she is tired from PT. Reports continued L knee pain. Objective: []Gen: NAD LLE: Left knee dressing c/d/i. thigh soft, DF/PF intact, DP2+, sensation intact to light touch distally Calf on the left continues to be tender, she did have a venous doppler on the 4th that was negative. Vital Signs Temp 98.8 F 07/18/19 11:40 Pulse 94 07/18/19 11:40 Resp 16 07/18/19 11:40 BP 108/51 07/18/19 11:40 Pulse Ox 92 07/18/19 11:40 Intake & Output 07/17/19 07/18/19 07/18/19 18:59 06:59 18:59 Intake Total 840 1190 360 Output Total 1400 900 Balance -560 290 360 Intake: Oral 840 1190 360 Output: Urine 1400 900 Other: Estimated Void Small # Bowel Movements 0 # Voids 1 Assessment: []POD 3 sp LTK Plan: []WBAT PT Okay to give home dose of xarelto 20 mg qd. Will continue to monitor H&H Continue with ms contin 15 mg qd plan for dc rehab, placement pending, possible on Sunday
--- NOTE | 2019-07-18 15:39 | PN ---
Subjective Date of Service: 07/18/19 Interval History: Pt sitting up in chair, states she is tired, appears alert. NAD. C/o pain 7/10 to L knee, believes that her pain has increased since yesterday but is still manageable with medications she has been getting and that the medication is helping her. Currently denies any CP, dizziness, SOB, abdominal discomfort, difficulty urinating, unusual numbness/tingling. Objective Active Medications: Atorvastatin Calcium (Lipitor*) 10 mg PO QAM [facility]S [facility] 234 BEDS AT [facility] Last Admin: 07/18/19 09:42 Dose: 10 mg Bisacodyl (Dulcolax Supp*) 10 mg [place] DAILY PRN PRN Reason: CONSTIPATION Cyclobenzaprine HCl (Flexeril Tab*) 10 mg PO Q6H PRN PRN Reason: SPASMS Last Admin: 07/18/19 09:41 Dose: 10 mg Diphenhydramine HCl (Benadryl Iv*) 25 mg IV Q6H PRN PRN Reason: PRURITIS Diphenhydramine HCl (Benadryl Po*) 25 mg PO Q6H PRN PRN Reason: PRURITIS Docusate Sodium (Colace Cap*) 100 mg PO BID COUNTS INCLUDE 234 BEDS AT THE [facility] Last Admin: 07/18/19 09:41 Dose: 100 mg Lactated Ringer's (Lactated Ringers 1000 Ml Bag*) 1,000 mls @ 100 mls/hr IV PER RATE COUNTS INCLUDE 234 BEDS AT [facility] Last Admin: 07/16/19 03:31 Dose: 100 mls/hr Lactulose (Lactulose*) 30 ml PO BID PRN PRN Reason: CONSTIPATION Last Admin: 07/17/19 16:33 Dose: 30 ml Lisinopril (Prinivil Tab*) 2.5 mg PO DAILY COUNTS [facility]CLUDE 234 BEDS AT [facility] Last Admin: 07/18/19 09:42 Dose: 2.5 mg Magnesium Hydroxide (Milk Of Magnesia Liq*) 30 ml PO BID [facility]S [facility]CLUDE 234 BEDS AT [facility] Last Admin: 07/18/19 09:47 Dose: 30 ml Magnesium Hydroxide (Milk Of Magnesia Liq*) 30 ml PO Q6H PRN PRN Reason: CONSTIPATION Metoprolol Tartrate (Lopressor Tab*) 25 mg PO QAM COUNTS [facility]CLUDE 234 BEDS AT [facility] Last Admin: 07/18/19 09:42 Dose: 25 mg Morphine Sulfate (Morphine Inj (Syringe))*) 2 mg IV Q4H PRN PRN Reason: Pain - Unrelieved Last Admin: 07/18/19 10:58 Dose: 2 mg Multivitamins (Theragran Tab*) 1 tab PO DAILY [facility] Last Admin: 07/18/19 09:42 Dose: 1 tab Ondansetron HCl (Zofran Inj*) 4 mg IV Q6H PRN PRN Reason: NAUSEA Last Admin: 07/16/19 11:02 Dose: 4 mg Ondansetron HCl (Zofran Odt Tab*) 4 mg PO Q6H PRN PRN Reason: NAUSEA Ondansetron HCl (Zofran Tab*) 4 mg PO Q6H PRN PRN Reason: NAUSEA Oxycodone HCl (Roxycodone Tab*) 5 mg PO Q4H PRN PRN Reason: PAIN - SEVERE Last Admin: 07/16/19 16:58 Dose: 5 mg Oxycodone HCl (Roxycodone Tab*) 10 mg PO Q4H PRN PRN Reason: PAIN - MORE SEVERE Last Admin: 07/18/19 13:59 Dose: 10 mg Polyethylene Glycol/Electrolytes (Miralax (17 Gm Dose Shiraz)) 17 gm PO DAILY PRN PRN Reason: Constipation Last Admin: 07/18/19 09:41 Dose: 17 gm Potassium Chloride (Klor Con Er Tab*) 10 meq PO QAM COUNTS [facility]CLUDE 234 BEDS AT [facility] Last Admin: 07/18/19 09:41 Dose: 10 meq Rivaroxaban (Xarelto(*)) 20 mg PO DAILY WITH MEAL COUNTS INCLUDE 234 BEDS AT THE [facility] Last Admin: 07/18/19 09:42 Dose: 20 mg Tramadol HCl (Ultram*) 50 mg PO Q6H PRN PRN Reason: PAIN - MODERATE Last Admin: 07/17/19 06:24 Dose: 50 mg Vital Signs - 8 hr 07/18/19 07/18/19 07/18/19 07:37 08:00 09:41 Temperature 99.2 F Pulse Rate 90 Respiratory 16 16 16 Rate Blood Pressure 111/44 (mmHg) O2 Sat by Pulse 92 Oximetry 07/18/19 07/18/19 07/18/19 09:42 10:58 11:40 Temperature 98.8 F Pulse Rate 94 Respiratory 18 16 16 Rate Blood Pressure 108/51 (mmHg) O2 Sat by Pulse 92 Oximetry 07/18/19 07/18/19 07/18/19 11:45 12:00 13:59 Temperature Pulse Rate Respiratory 16 16 16 Rate Blood Pressure (mmHg) O2 Sat by Pulse Oximetry Oxygen Devices in Use Now: None Appearance: sitting up in chair, NAD Eyes: - - PERRL Ears/Nose/Mouth/Throat: Mucous Membranes Moist Respiratory: Symmetrical Chest Expansion and Respiratory Effort, Clear to Auscultation Cardiovascular: RRR - with grade 3/6 systolic murmur best heard midclavicular at approximately L 3rd ICS Abdominal: NL Sounds; No Tenderness; No Distention Extremities: - - 2+ non-pitting edema LLE, no edema RLE Skin: - - incision to L knee covered with dressing, CDI Neurological: Alert and Oriented x 3 Nutrition: Taking PO's Result Diagrams: 07/18/19 06:32 07/17/19 06:34 Microbiology and Other Data: Microbiology 07/17/19 18:30 Urine Culture - Final Urine No Growth (<1,000 CFU/mL) Assess/Plan/Problems-Billing Assessment: is a 74yo F with pmhx significant for HTN, AFib, hx breast CA. She had an elective L TKR with on 07/15/19 and was admitted to [facility]. - Patient Problems (1) Status post total left knee replacement Current Visit: Yes Status: Acute Code(s): Z96.652 - PRESENCE OF LEFT ARTIFICIAL KNEE JOINT SNOMED Code(s): 6075690869945 Comment: Pain management, bowel management, incision management per orthopedics. (2) Dizziness Current Visit: Yes Status: Acute Code(s): R42 - DIZZINESS AND GIDDINESS SNOMED Code(s): 915283591 Comment: Episode on 07/15, had received 1L IVF bolus and 1unit PRBC, has since resolved (3) SOB (shortness of breath) Current Visit: Yes Status: Acute Code(s): R06.02 - SHORTNESS OF BREATH SNOMED Code(s): 849913221 Comment: Episode on 07/15, had received 1L IVF bolus and 1unit PRBC, has since resolved (4) Anemia due to acute blood loss Current Visit: Yes Status: Acute Code(s): D62 - ACUTE POSTHEMORRHAGIC ANEMIA SNOMED Code(s): 630306591 Comment: 1 unit PRBC on 07/15 for symptomatic anemia HH 8.8/25 this morning, slight drop from yesterday but remains asymptomatic, hemodynamically stable -HH trend ordered by ortho (5) History of atrial fibrillation Current Visit: Yes Status: Acute Code(s): Z86.79 - PERSONAL HISTORY OF OTHER DISEASES OF THE CIRCULATORY SYSTEM SNOMED Code(s): 106597836 Comment: Continue metoprolol with hold parameters (6) Hypomagnesemia Current Visit: Yes Status: Acute Code(s): E83.42 - HYPOMAGNESEMIA SNOMED Code(s): 698894619 Comment: resolved (7) Fever Current Visit: Yes Status: Acute Code(s): R50.9 - FEVER, UNSPECIFIED SNOMED Code(s): 651018224 Comment: Resolved Has had occasional increases in HR >90 today but no concern for infection at this time. May very well be in response to pain. (8) Full code status Current Visit: Yes Status: Acute Code(s): Z78.9 - OTHER SPECIFIED HEALTH STATUS SNOMED Code(s): 248663180 (9) DVT prophylaxis Current Visit: Yes Status: Acute Code(s): Z29.9 - ENCOUNTER FOR PROPHYLACTIC MEASURES, UNSPECIFIED SNOMED Code(s): 363063201 Comment: miroslava, again will continue to monitor HH SCDs Status and Disposition: status: stable disposition: [facility]
[2019-07-18] MEDS: traMADol TAB* 50 MG PO PRN (21:03)
[2019-07-19] MEDS: oxyCODONE TAB* 5 MG TAB PO PRN ×2 (03:32→08:34)
[2019-07-19 06:33] LABS: Hematocrit 24 % (35-47); Mean Platelet Volume 8.5 fL (7.4-10.4); Platelet Count 170 10^3/uL (150-450)
[2019-07-19] MEDS: traMADol TAB* 50 MG PO PRN ×3 (06:35→23:51)
--- NOTE | 2019-07-19 08:11 | PN ---
Progress Note - Progress Note Date of Service: 07/19/19 SOAP: Subjective: OOB to chair, pain well controlled, no complaints of SOB/chest pain, no significant dizziness/light headedness Objective: Vital Signs Temp Pulse Resp BP Pulse Ox 99.5 F 92 18 110/42 94 07/19/19 07:19 07/19/19 07:19 07/19/19 07:30 07/19/19 07:19 07/19/19 07:19 Laboratory Last Values WBC 10.8 10^3/uL (3.5-10.8) 07/18/19 06:32 RBC 3.16 10^6 /uL (3.70-4.87) L 07/17/19 06:34 Hgb 8.0 g/dL (12.0-16.0) L 07/19/19 06:11 Hct 24 % (35-47) L 07/19/19 06:11 MCV 91 fL (80-97) 07/17/19 06:34 MCH 31 pg (27-31) 07/17/19 06:34 MCHC 34 g/dL (31-36) 07/17/19 06:34 RDW 15 % (10-15) 07/17/19 06:34 Plt Count 170 10^3/uL (150-450) 07/19/19 06:11 MPV 8.5 fL (7.4-10.4) 07/19/19 06:11 Neut % (Auto) 78.2 % 07/17/19 06:34 Lymph % (Auto) 10.9 % 07/17/19 06:34 [place] % (Auto) 10.2 % 07/17/19 06:34 Eos % (Auto) 0.1 % 07/17/19 06:34 Baso % (Auto) 0.6 % 07/17/19 06:34 Absolute Neuts (auto) 8.7 10^3/ul (1.5-7.7) H 07/17/19 06:34 Absolute Lymphs (auto) 1.2 10^3/ul (1.0-4.8) 07/17/19 06:34 Absolute Monos (auto) 1.1 10^3/ul (0-0.8) H 07/17/19 06:34 Absolute Eos (auto) 0.0 10^3/ul (0-0.6) 07/17/19 06:34 Absolute Basos (auto) 0.1 10^3/ul (0-0.2) 07/17/19 06:34 Absolute Nucleated RBC 0.0 10^3/ul 07/17/19 06:34 Nucleated RBC % 0.0 07/17/19 06:34 INR (Anticoag Therapy) 1.09 (0.82-1.09) 07/15/19 11:07 Sodium 135 mmol/L (135-145) 07/17/19 06:34 Potassium 3.9 mmol/L (3.5-5.0) 07/17/19 06:34 Chloride 100 mmol/L (101-111) L 07/17/19 06:34 Carbon Dioxide 28 mmol/L (22-32) 07/17/19 06:34 Anion Gap 7 mmol/L (2-11) 07/17/19 06:34 BUN 12 mg/dL (6-24) 07/17/19 06:34 Creatinine 0.85 mg/dL (0.51-0.95) 07/17/19 06:34 Est GFR ( Amer) 78.7 (>60) 07/17/19 06:34 Est GFR (Non-Af Amer) 65.0 (>60) 07/17/19 06:34 BUN/Creatinine Ratio 14.1 (8-20) 07/17/19 06:34 Glucose 133 mg/dL (70-100) H 07/17/19 06:34 Calcium 8.1 mg/dL (8.6-10.3) L 07/17/19 06:34 Magnesium 2.1 mg/dL (1.9-2.7) 07/17/19 06:34 Urine Color Yellow 07/17/19 18:30 Urine Appearance Clear 07/17/19 18:30 Urine pH 6.0 (5-9) 07/17/19 18:30 Ur Specific [place] 1.006 (1.010-1.030) L 07/17/19 18:30 Urine Protein Negative (Negative) 07/17/19 18:30 Urine Ketones Negative (Negative) 07/17/19 18:30 Urine Blood 1+ (Negative) A 07/17/19 18:30 Urine Nitrate Negative (Negative) 07/17/19 18:30 Urine Bilirubin Negative (Negative) 07/17/19 18:30 Urine Urobilinogen Negative (Negative) 07/17/19 18:30 Ur Leukocyte Esterase 1+ (Negative) A 07/17/19 18:30 Urine WBC (Auto) 1+(6-10/hpf) (Absent) A 07/17/19 18:30 Urine RBC (Auto) Trace(0-2/hpf) (Absent) 07/17/19 18:30 Ur Squamous Epith Cells Present (Absent) A 07/17/19 18:30 Urine Bacteria Absent (Absent) 07/17/19 18:30 Urine Glucose Negative (Negative) 07/17/19 18:30 Blood Type O Positive 07/16/19 06:35 Antibody Screen Negative 07/16/19 06:35 Crossmatch See Detail 07/16/19 06:35 incision: c/d; dressing changed PE: NVI Assessment: s/p left TKA; POD#2 Plan: 1) PT/OT-WBAT 2) Eliquis BID for DVT prophylaxis 3) Plan for inpt rehab placement; likely Sunday D/C
[2019-07-19] MEDS: Docusate CAP* 100 MG PO SCH ×2 (08:30→20:32)
[2019-07-19] MEDS: Atorvastatin* 10 MG TAB PO SCH (08:30)
[2019-07-19] MEDS: Rivaroxaban TAB(*) 20 MG TAB PO SCH (08:31)
[2019-07-19] MEDS: Vitamin THERAPEUTIC TAB PO SCH (08:32)
[2019-07-19] MEDS: Potassium Chlor TAB* 10 MEQ TAB.ER PO SCH (08:32)
[2019-07-19] MEDS: Lisinopril TAB* 5 MG PO SCH (08:33)
[2019-07-19] MEDS: Metoprolol Tartrate TAB* 25 MG PO SCH (08:33)
[2019-07-19] MEDS: Magnesium Hydroxide LIQ* 30 ML UDC PO SCH ×2 (08:37→20:45)
--- NOTE | 2019-07-19 09:06 | PN ---
Subjective Date of Service: 07/19/19 Interval History: Pt reports that while not moving the pain in left knee is 5/10, however, with movement pain increases to 9/10. Pt denies any chest pain, dizziness, SOB. Denies any urinary sx. Reports that she has not had a BM since Sunday07/13/19 Family History: Unchanged from Admission Social History: Unchanged from Admission Past Medical History: Unchanged from Admission Objective Active Medications: Atorvastatin Calcium (Lipitor*) 10 mg PO QAM ON LICENSE OF [facility] Last Admin: 07/19/19 08:30 Dose: 10 mg Bisacodyl (Dulcolax Supp*) 10 mg [place] DAILY PRN PRN Reason: CONSTIPATION Cyclobenzaprine HCl (Flexeril Tab*) 10 mg PO Q6H PRN PRN Reason: SPASMS Last Admin: 07/18/19 18:08 Dose: 10 mg Diphenhydramine HCl (Benadryl Iv*) 25 mg IV Q6H PRN PRN Reason: PRURITIS Diphenhydramine HCl (Benadryl Po*) 25 mg PO Q6H PRN PRN Reason: PRURITIS Docusate Sodium (Colace Cap*) 100 mg PO BID ON LICENSE OF [facility] Last Admin: 07/19/19 08:30 Dose: 100 mg Lactated Ringer's (Lactated Ringers 1000 Ml Bag*) 1,000 mls @ 100 mls/hr IV PER RATE ON LICENSE OF [facility] Last Admin: 07/16/19 03:31 Dose: 100 mls/hr Lactulose (Lactulose*) 30 ml PO BID PRN PRN Reason: CONSTIPATION Last Admin: 07/17/19 16:33 Dose: 30 ml Lisinopril (Prinivil Tab*) 2.5 mg PO DAILY ON LICENSE OF [facility] Last Admin: 07/19/19 08:33 Dose: 2.5 mg Magnesium Hydroxide (Milk Of Magnesia Liq*) 30 ml PO BID ON LICENSE OF [facility] Last Admin: 07/19/19 08:37 Dose: 30 ml Magnesium Hydroxide (Milk Of Magnesia Liq*) 30 ml PO Q6H PRN PRN Reason: CONSTIPATION Metoprolol Tartrate (Lopressor Tab*) 25 mg PO QAM ON LICENSE OF [facility] Last Admin: 07/19/19 08:33 Dose: 25 mg Morphine Sulfate (Morphine Inj (Syringe))*) 2 mg IV Q4H PRN PRN Reason: Pain - Unrelieved Last Admin: 07/18/19 10:58 Dose: 2 mg Multivitamins (Theragran Tab*) 1 tab PO DAILY [facility] Last Admin: 07/19/19 08:32 Dose: 1 tab Ondansetron HCl (Zofran Inj*) 4 mg IV Q6H PRN PRN Reason: NAUSEA Last Admin: 07/16/19 11:02 Dose: 4 mg Ondansetron HCl (Zofran Odt Tab*) 4 mg PO Q6H PRN PRN Reason: NAUSEA Ondansetron HCl (Zofran Tab*) 4 mg PO Q6H PRN PRN Reason: NAUSEA Oxycodone HCl (Roxycodone Tab*) 5 mg PO Q4H PRN PRN Reason: PAIN - SEVERE Last Admin: 07/16/19 16:58 Dose: 5 mg Oxycodone HCl (Roxycodone Tab*) 10 mg PO Q4H PRN PRN Reason: PAIN - MORE SEVERE Last Admin: 07/19/19 08:34 Dose: 10 mg Polyethylene Glycol/Electrolytes (Miralax (17 Gm Dose Shiraz)) 17 gm PO DAILY PRN PRN Reason: Constipation Last Admin: 07/18/19 09:41 Dose: 17 gm Potassium Chloride (Klor Con Er Tab*) 10 meq PO QAM [facility] Last Admin: 07/19/19 08:32 Dose: 10 meq Rivaroxaban (Xarelto(*)) 20 mg PO DAILY WITH MEAL ON LICENSE OF [facility] Last Admin: 07/19/19 08:31 Dose: 20 mg Tramadol HCl (Ultram*) 50 mg PO Q6H PRN PRN Reason: PAIN - MODERATE Last Admin: 07/19/19 06:35 Dose: 50 mg Vital Signs - 8 hr 07/19/19 07/19/19 07/19/19 03:32 03:33 03:35 Temperature 98.6 F Pulse Rate 88 Respiratory 18 18 18 Rate Blood Pressure 124/56 (mmHg) O2 Sat by Pulse 98 Oximetry 07/19/19 07/19/19 07/19/19 06:01 06:35 07:19 Temperature 100.0 F 99.5 F Pulse Rate 100 92 Respiratory 20 20 18 Rate Blood Pressure 122/54 110/42 (mmHg) O2 Sat by Pulse 94 94 Oximetry 07/19/19 07/19/19 07/19/19 07:30 08:30 08:34 Temperature Pulse Rate 94 Respiratory 18 18 Rate Blood Pressure 113/40 (mmHg) O2 Sat by Pulse Oximetry Oxygen Devices in Use Now: None Appearance: Elderly woman appears stated age, reclined in chair with legs elevated, chatting with nurse. Does not appear to be in any distress. Eyes: No Scleral Icterus Ears/Nose/Mouth/Throat: NL Teeth, Lips, Gums, Clear Oropharnyx, Mucous Membranes Moist Neck: NL Appearance and Movements; NL JVP Respiratory: Symmetrical Chest Expansion and Respiratory Effort, Clear to Auscultation Cardiovascular: NL Sounds; No Murmurs; No JVD, RRR, No Edema Abdominal: NL Sounds; No Tenderness; No Distention Extremities: No Edema - +2 edema left lower extremity. +1 pulse right pedal pulse, unable to palpate pulse in left foot, +CMST left foot., No Clubbing, Cyanosis Skin: No Rash or Ulcers, No Nodules or Sclerosis Neurological: Alert and Oriented x 3, NL Sensation, NL Muscle Strength and Tone Result Diagrams: 07/19/19 06:11 07/19/19 10:48 Microbiology and Other Data: Microbiology 07/17/19 18:30 Urine Culture - Final Urine No Growth (<1,000 CFU/mL) Assess/Plan/Problems-Billing Assessment: is a 74yo F with pmhx significant for HTN, AFib, hx breast CA. She had an elective L TKR with on 07/15/19 and was admitted to [facility]. - Patient Problems (1) Status post total left knee replacement Current Visit: Yes Status: Acute Code(s): Z96.652 - PRESENCE OF LEFT ARTIFICIAL KNEE JOINT SNOMED Code(s): 2305464939818 Comment: Pain management, bowel management, incision management per orthopedics. (2) Anemia due to acute blood loss Current Visit: Yes Comment: -1 unit PRBC on 07/15 for symptomatic anemia -H/H 8.0/24 this AM continues to decrease from yesterday. Spoke with ortho PA this AM, Ortho would like to hold off on another transfusion at this time. -pt did have 2 episodes of orthostatic hypotension while ambulating to restroom. Ortho has ordered another blood transfusion. -Will recheck H/H tomorrow (3) Dizziness Current Visit: Yes Comment: -Pt remains without dizziness -[facility] (4) History of atrial fibrillation Current Visit: Yes Comment: -Continue metoprolol 25mg PO QDay with hold parameters (5) SOB (shortness of breath) Current Visit: Yes Comment: -Denies SOB since blood transfusion (6) Hypertension Current Visit: Yes Comment: -Well controlled with lisinopril (7) Full code status Current Visit: Yes (8) DVT prophylaxis Current Visit: Yes SNOMED Code(s): 386415529 Comment: -xarelto 20mg po, will continue to monitor HH -SCDs remain on Status and Disposition: status: stable disposition: [facility]
[2019-07-19 11:11] LABS: BUN/Creatinine Ratio 19.2 (8-20); Calcium 7.9 mg/dL (8.6-10.3); EGFR African American 86.9 (>60); EGFR Non-African American 71.8 (>60); Magnesium 2.3 mg/dL (1.9-2.7); Potassium 4.2 mmol/L (3.5-5.0)
[2019-07-19] MEDS: Polyethylene Glycol 3350* 17 GM PACKET PO PRN (20:32)
[2019-07-20] MEDS: traMADol TAB* 50 MG PO PRN ×3 (06:32→21:23)
--- NOTE | 2019-07-20 06:52 | PN ---
Progress Note - Progress Note Date of Service: 07/20/19 SOAP: Subjective: resting in bed with no significant complaints, no dizziness last night or this am. Reports able to walk to bathroom multiple time yesterday afternoon/night without any dizziness or feelings of syncope. Objective: Vital Signs Temp Pulse Resp BP Pulse Ox 98.9 F 95 16 118/50 93 07/20/19 04:16 07/20/19 04:16 07/20/19 06:32 07/20/19 04:16 07/20/19 04:16 Laboratory Last Values WBC 10.8 10^3/uL (3.5-10.8) 07/18/19 06:32 RBC 3.16 10^6 /uL (3.70-4.87) L 07/17/19 06:34 Hgb 8.0 g/dL (12.0-16.0) L 07/19/19 06:11 Hct 24 % (35-47) L 07/19/19 06:11 MCV 91 fL (80-97) 07/17/19 06:34 MCH 31 pg (27-31) 07/17/19 06:34 MCHC 34 g/dL (31-36) 07/17/19 06:34 RDW 15 % (10-15) 07/17/19 06:34 Plt Count 170 10^3/uL (150-450) 07/19/19 06:11 MPV 8.5 fL (7.4-10.4) 07/19/19 06:11 Neut % (Auto) 78.2 % 07/17/19 06:34 Lymph % (Auto) 10.9 % 07/17/19 06:34 [place] % (Auto) 10.2 % 07/17/19 06:34 Eos % (Auto) 0.1 % 07/17/19 06:34 Baso % (Auto) 0.6 % 07/17/19 06:34 Absolute Neuts (auto) 8.7 10^3/ul (1.5-7.7) H 07/17/19 06:34 Absolute Lymphs (auto) 1.2 10^3/ul (1.0-4.8) 07/17/19 06:34 Absolute Monos (auto) 1.1 10^3/ul (0-0.8) H 07/17/19 06:34 Absolute Eos (auto) 0.0 10^3/ul (0-0.6) 07/17/19 06:34 Absolute Basos (auto) 0.1 10^3/ul (0-0.2) 07/17/19 06:34 Absolute Nucleated RBC 0.0 10^3/ul 07/17/19 06:34 Nucleated RBC % 0.0 07/17/19 06:34 INR (Anticoag Therapy) 1.09 (0.82-1.09) 07/15/19 11:07 Sodium 132 mmol/L (135-145) L 07/19/19 10:48 Potassium 4.2 mmol/L (3.5-5.0) 07/19/19 10:48 Chloride 97 mmol/L (101-111) L 07/19/19 10:48 Carbon Dioxide 29 mmol/L (22-32) 07/19/19 10:48 Anion Gap 6 mmol/L (2-11) 07/19/19 10:48 BUN 15 mg/dL (6-24) 07/19/19 10:48 Creatinine 0.78 mg/dL (0.51-0.95) 07/19/19 10:48 Est GFR ( Amer) 86.9 (>60) 07/19/19 10:48 Est GFR (Non-Af Amer) 71.8 (>60) 07/19/19 10:48 BUN/Creatinine Ratio 19.2 (8-20) 07/19/19 10:48 Glucose 123 mg/dL (70-100) H 07/19/19 10:48 Calcium 7.9 mg/dL (8.6-10.3) L 07/19/19 10:48 Magnesium 2.3 mg/dL (1.9-2.7) 07/19/19 10:48 Urine Color Yellow 07/17/19 18:30 Urine Appearance Clear 07/17/19 18:30 Urine pH 6.0 (5-9) 07/17/19 18:30 Ur Specific [place] 1.006 (1.010-1.030) L 07/17/19 18:30 Urine Protein Negative (Negative) 07/17/19 18:30 Urine Ketones Negative (Negative) 07/17/19 18:30 Urine Blood 1+ (Negative) A 07/17/19 18:30 Urine Nitrate Negative (Negative) 07/17/19 18:30 Urine Bilirubin Negative (Negative) 07/17/19 18:30 Urine Urobilinogen Negative (Negative) 07/17/19 18:30 Ur Leukocyte Esterase 1+ (Negative) A 07/17/19 18:30 Urine WBC (Auto) 1+(6-10/hpf) (Absent) A 07/17/19 18:30 Urine RBC (Auto) Trace(0-2/hpf) (Absent) 07/17/19 18:30 Ur Squamous Epith Cells Present (Absent) A 07/17/19 18:30 Urine Bacteria Absent (Absent) 07/17/19 18:30 Urine Glucose Negative (Negative) 07/17/19 18:30 Blood Type O Positive 07/19/19 06:11 Antibody Screen Negative 07/19/19 06:11 Crossmatch See Detail 07/19/19 06:11 incision: c/d/i PE: NVI Assessment: s/p left TKA; POD#3 Plan: 1) PT/OT- WBAT 2) awaiting H&H this am, will follow 3) tx to inpatient rehab tomorrow
[2019-07-20 07:13] LABS: Hematocrit 24 % (35-47); Hemoglobin 8.5 g/dL (12.0-16.0); Mean Platelet Volume 8.1 fL (7.4-10.4); Platelet Count 180 10^3/uL (150-450)
[2019-07-20] MEDS: Cyclobenzaprine TAB* 10 MG PO PRN ×3 (07:52→21:12)
[2019-07-20] MEDS: Potassium Chlor TAB* 10 MEQ TAB.ER PO SCH (07:53)
[2019-07-20] MEDS: Atorvastatin* 10 MG TAB PO SCH (07:53)
[2019-07-20] MEDS: Rivaroxaban TAB(*) 20 MG TAB PO SCH (07:53)
[2019-07-20] MEDS: Vitamin THERAPEUTIC TAB PO SCH (07:53)
[2019-07-20] MEDS: Metoprolol Tartrate TAB* 25 MG PO SCH (07:53)
[2019-07-20] MEDS: Docusate CAP* 100 MG PO SCH ×2 (07:53→21:12)
[2019-07-20] MEDS ORDERED: Ferric Gluconate IV* 100 MG in NS 0.9% 100 ML* 100 ML IVPB ONE (09:09)
[2019-07-20] MEDS ORDERED: Ferric Gluconate IV* 25 MG in NS 0.9% 50 ML* 50 ML IVPB ONE (09:09)
[2019-07-20] MEDS: Magnesium Hydroxide LIQ* 30 ML UDC PO SCH ×2 (10:11→21:24)
[2019-07-20] MEDS: Ondansetron INJ* 2 MG/ML VIAL IV PRN (13:20)
[2019-07-20] MEDS: Morphine INJ* 2 MG/ML 1 ML SYRINGE (TWO MG - NEW SYRINGE VERSION) IV PRN ×2 (13:20→21:19)
[2019-07-20] MEDS ORDERED: Scopolamine 1.5 mg* PATCH TRANSDERM PRN (14:32)
[2019-07-20] MEDS ORDERED: Scopolamine PATCH Remove* 1 NOTE MISC PATCH OFF PRN (14:32)
--- NOTE | 2019-07-20 15:44 | PN ---
Subjective Date of Service: 07/20/19 Interval History: pt reports that she is feeling much better today. Denies any syncopal or near syncopal episodes over night. Pt reports too that she is in less discomfort and is without any N/V. Pt denies chest pain or SOB. Pt also reports that she did have one small hard BM last night, requesting another suppository as yesterdays was productive. Family History: Unchanged from Admission Social History: Unchanged from Admission Past Medical History: Unchanged from Admission Objective Active Medications: Atorvastatin Calcium (Lipitor*) 10 mg PO QAM [facility] Last Admin: 07/20/19 07:53 Dose: 10 mg Bisacodyl (Dulcolax Supp*) 10 mg [place] DAILY PRN PRN Reason: CONSTIPATION Last Admin: 07/19/19 17:49 Dose: 10 mg Cyclobenzaprine HCl (Flexeril Tab*) 10 mg PO Q6H PRN PRN Reason: SPASMS Last Admin: 07/20/19 12:23 Dose: 10 mg Diphenhydramine HCl (Benadryl Iv*) 25 mg IV Q6H PRN PRN Reason: PRURITIS Diphenhydramine HCl (Benadryl Po*) 25 mg PO Q6H PRN PRN Reason: PRURITIS Docusate Sodium (Colace Cap*) 100 mg PO BID [facility] Last Admin: 07/20/19 07:53 Dose: 100 mg Lactulose (Lactulose*) 30 ml PO BID PRN PRN Reason: CONSTIPATION Last Admin: 07/17/19 16:33 Dose: 30 ml Magnesium Hydroxide (Milk Of Magnesia Liq*) 30 ml PO BID [facility] Last Admin: 07/20/19 10:11 Dose: Not Given Magnesium Hydroxide (Milk Of Magnesia Liq*) 30 ml PO Q6H PRN PRN Reason: CONSTIPATION Metoprolol Tartrate (Lopressor Tab*) 25 mg PO QAM [facility] Last Admin: 07/20/19 07:53 Dose: 25 mg Morphine Sulfate (Morphine Inj (Syringe))*) 2 mg IV Q4H PRN PRN Reason: Pain - Unrelieved Last Admin: 07/20/19 13:20 Dose: 2 mg Multivitamins (Theragran Tab*) 1 tab PO DAILY [facility] Last Admin: 07/20/19 07:53 Dose: 1 tab Ondansetron HCl (Zofran Inj*) 4 mg IV Q6H PRN PRN Reason: NAUSEA Last Admin: 07/20/19 13:20 Dose: 4 mg Ondansetron HCl (Zofran Odt Tab*) 4 mg PO Q6H PRN PRN Reason: NAUSEA Ondansetron HCl (Zofran Tab*) 4 mg PO Q6H PRN PRN Reason: NAUSEA Oxycodone HCl (Roxycodone Tab*) 5 mg PO Q4H PRN PRN Reason: PAIN - SEVERE Last Admin: 07/16/19 16:58 Dose: 5 mg Oxycodone HCl (Roxycodone Tab*) 10 mg PO Q4H PRN PRN Reason: PAIN - MORE SEVERE Last Admin: 07/19/19 08:34 Dose: 10 mg Pharmacy Profile Note (Scopolamine Patch Remove*) 1 note PATCH OFF Q72H PRN PRN Reason: NAUSEA Polyethylene Glycol/Electrolytes (Miralax (17 Gm Dose Shiraz)) 17 gm PO DAILY PRN PRN Reason: Constipation Last Admin: 07/19/19 20:32 Dose: 17 gm Potassium Chloride (Klor Con Er Tab*) 10 meq PO QAM [facility] Last Admin: 07/20/19 07:53 Dose: 10 meq Rivaroxaban (Xarelto(*)) 20 mg PO DAILY WITH MEAL [facility] Last Admin: 07/20/19 07:53 Dose: 20 mg Scopolamine (Transderm-Scop 1.5 Mg Patch*) 1 patch TRANSDERM Q72H PRN PRN Reason: NAUSEA Tramadol HCl (Ultram*) 50 mg PO Q6H PRN PRN Reason: PAIN - MODERATE Last Admin: 07/20/19 12:23 Dose: 50 mg Vital Signs - 8 hr 07/20/19 07/20/19 07/20/19 07:52 07:58 10:11 Temperature Pulse Rate Respiratory 16 16 16 Rate Blood Pressure (mmHg) O2 Sat by Pulse Oximetry 07/20/19 07/20/19 07/20/19 11:39 12:23 13:20 Temperature 98.3 F Pulse Rate 84 Respiratory 18 18 20 Rate Blood Pressure 96/55 (mmHg) O2 Sat by Pulse 91 Oximetry Oxygen Devices in Use Now: None Eyes: No Scleral Icterus, PERRLA Ears/Nose/Mouth/Throat: NL Teeth, Lips, Gums, Clear Oropharnyx, Mucous Membranes Moist Neck: NL Appearance and Movements; NL JVP Respiratory: Symmetrical Chest Expansion and Respiratory Effort, Clear to Auscultation Cardiovascular: No Edema Abdominal: NL Sounds; No Tenderness; No Distention, No Hepatosplenomegaly Lymphatic: No Cervical Adenopathy Extremities: No Edema, No Clubbing, Cyanosis Skin: No Rash or Ulcers, No Nodules or Sclerosis Neurological: Alert and Oriented x 3, NL Sensation, NL Muscle Strength and Tone Result Diagrams: 07/20/19 06:56 07/19/19 10:48 Microbiology and Other Data: Microbiology 07/17/19 18:30 Urine Culture - Final Urine No Growth (<1,000 CFU/mL) Assess/Plan/Problems-Billing Assessment: is a 74yo F with pmhx significant for HTN, AFib, hx breast CA. She had an elective L TKR with on 07/15/19 and was admitted to [facility]. - Patient Problems (1) Status post total left knee replacement Current Visit: Yes Status: Acute Code(s): Z96.652 - PRESENCE OF LEFT ARTIFICIAL KNEE JOINT SNOMED Code(s): 0698827664798 Comment: -Pain management, bowel management, incision management per orthopedics. -Dressing remains clean, dry, and intact. (2) Anemia due to acute blood loss Current Visit: Yes Comment: -1 unit PRBC on 07/15 for symptomatic anemia -1 unit PRBC on 07/18 for symptomatic anemia Denies dizziness today, denies chest pain -H/H 8.5/24 this AM after receiving 1 unit PRBC transfusion yesterday evening. -Will assess for hemoccult when next suppository is due. -Will recheck H/H tomorrow --Stool hemoccult negative-- (3) Dizziness Current Visit: Yes Comment: -Pt remains without dizziness -Pt denies becoming dizzy with transfer to recliner today. VSS (4) History of atrial fibrillation Current Visit: Yes Comment: -Continue metoprolol 25mg PO QDay with hold parameters (5) SOB (shortness of breath) Current Visit: Yes Comment: -Remains without complaints of SOB today (6) Hypertension Current Visit: Yes Comment: -Well controlled with lisinopril (7) Full code status Current Visit: Yes (8) DVT prophylaxis Current Visit: Yes SNOMED Code(s): 724586793 Comment: -xarelto 20mg po, will continue to monitor HH -SCDs remain on Status and Disposition: status: stable disposition: [facility]
[2019-07-20] MEDS: Ondansetron TAB* 4 MG PO PRN (21:15)
[2019-07-21] MEDS: oxyCODONE TAB* 5 MG TAB PO PRN ×4 (00:09→18:20)
[2019-07-21] MEDS: Cyclobenzaprine TAB* 10 MG PO PRN ×2 (04:41→14:41)
[2019-07-21] MEDS: Ondansetron TAB* 4 MG PO PRN ×3 (04:41→18:20)
[2019-07-21 07:09] LABS: ABS Basophils 0.1 10^3/ul (0-0.2); ABS Eosinophils 0.2 10^3/ul (0-0.6); ABS Lymphocytes 0.7 10^3/ul (1.0-4.8); ABS Monocytes 0.8 10^3/ul (0-0.8); ABS Neutrophils 5.1 10^3/ul (1.5-7.7); Eosinophil % 2.7 %; Hematocrit 24 % (35-47); Hemoglobin 8.4 g/dL (12.0-16.0); Lymphocyte % 10.2 %; Mean Corpuscular HGB Conc 35 g/dL (31-36); Mean Corpuscular Hemoglobin 31 pg (27-31); Mean Corpuscular Volume 88 fL (80-97); Mean Platelet Volume 7.7 fL (7.4-10.4); Platelet Count 207 10^3/uL (150-450); Red Blood Count 2.75 10^6 /uL (3.70-4.87); Red Cell Distribution Width 18 % (10-15); White Blood Count 6.7 10^3/uL (3.5-10.8)
[2019-07-21 07:25] LABS: BUN/Creatinine Ratio 20.6 (8-20); Calcium 8.1 mg/dL (8.6-10.3); EGFR African American 101.8 (>60); EGFR Non-African American 84.1 (>60); Magnesium 2.1 mg/dL (1.9-2.7); Potassium 4.1 mmol/L (3.5-5.0)
[2019-07-21] MEDS: Potassium Chlor TAB* 10 MEQ TAB.ER PO SCH (08:52)
[2019-07-21] MEDS: Vitamin THERAPEUTIC TAB PO SCH (08:52)
[2019-07-21] MEDS: Rivaroxaban TAB(*) 20 MG TAB PO SCH (08:53)
[2019-07-21] MEDS: Metoprolol Tartrate TAB* 25 MG PO SCH (08:53)
[2019-07-21] MEDS: Docusate CAP* 100 MG PO SCH ×2 (08:53→20:43)
[2019-07-21] MEDS: Calcium Carbonate CHEW TAB* 500 MG (TUMS) PO SCH ×3 (08:53→20:43)
[2019-07-21] MEDS: Magnesium Hydroxide LIQ* 30 ML UDC PO SCH ×2 (08:53→20:46)
[2019-07-21] MEDS: Atorvastatin* 10 MG TAB PO SCH (08:53)
[2019-07-21] MEDS: traMADol TAB* 50 MG PO PRN ×2 (09:03→14:42)
--- NOTE | 2019-07-21 10:58 | PN ---
Progress Note - Progress Note Date of Service: 07/21/19 SOAP: Subjective: [resting in bed this am. She complains of significant pain in the knee that is causing her to have trouble with PT. She states she has had no dizziness last night or this am. Reports able to walk to bathroom multiple time yesterday afternoon/night without any dizziness or feelings of syncope. Objective General: Pt is alert and oriented x3, NAD. MSK, LLE: Dressing is c/d/i. Dressing changed today. Incision is c/d/i. She does have some tenderness to palpation along the calf. Doppler obtained last night and was found to be negative. She has + df/pf. NVI distally, 2+ DP pulse. PE: NVI Vital Signs Temp 98.5 F 07/21/19 08:04 Pulse 92 07/21/19 08:04 Resp 16 07/21/19 09:47 BP 100/68 07/21/19 08:04 Pulse Ox 92 07/21/19 08:04 Intake & Output 07/20/19 07/21/19 07/21/19 18:59 06:59 18:59 Intake Total 1900 Output Total 300 Balance 1600 Intake: Oral 1900 Output: Urine 300 Other: Estimated Void Medium Medium Date of Last Bowel t Movement # Bowel Movements 1 Estimated Stool Amount Medium # Voids 2 Assessment: s/p left TKA; POD#4 Plan: 1) PT/OT- WBAT 2) Continue with pain medication, will add MS contin 15mg bid 3) Pt has a bed offer at [facility], we are currently awaiting authorization from insurance.
[2019-07-21] MEDS: Morphine TAB Extended Release (*) 15 MG TAB.ER PO SCH ×2 (11:31→23:47)
[2019-07-21] MEDS ORDERED: Ferric Gluconate IV* 125 MG in NS 0.9% 100 ML* 100 ML IVPB SCH (15:00)
--- NOTE | 2019-07-21 15:57 | PN ---
Subjective Date of Service: 07/21/19 Interval History: Pt c/o left calf edema and post op left knee pain, denies CP, COB. Stated that she "goes in and out of a. fib". sometimes she knows about and sometimes she is asymptomatic. she sees Dr. Cotton for it On telem she had approx 15 beats of possible a. fib last night Family History: Unchanged from Admission Social History: Unchanged from Admission Past Medical History: Unchanged from Admission Objective Active Medications: Atorvastatin Calcium (Lipitor*) 10 mg PO QAM [facility] Last Admin: 07/21/19 08:53 Dose: 10 mg Bisacodyl (Dulcolax Supp*) 10 mg [place] DAILY PRN PRN Reason: CONSTIPATION Last Admin: 07/19/19 17:49 Dose: 10 mg Calcium Carbonate (Tums*) 500 mg PO TID [facility] Last Admin: 07/21/19 08:53 Dose: 500 mg Cyclobenzaprine HCl (Flexeril Tab*) 10 mg PO Q6H PRN PRN Reason: SPASMS Last Admin: 07/21/19 14:41 Dose: 10 mg Diphenhydramine HCl (Benadryl Iv*) 25 mg IV Q6H PRN PRN Reason: PRURITIS Diphenhydramine HCl (Benadryl Po*) 25 mg PO Q6H PRN PRN Reason: PRURITIS Docusate Sodium (Colace Cap*) 100 mg PO BID [facility] Last Admin: 07/21/19 08:53 Dose: Not Given Ferric Sodium Gluconate Complex 125 mg/ Sodium Chloride 110 mls @ 110 mls/hr IVPB ONCE [facility] Lactulose (Lactulose*) 30 ml PO BID PRN PRN Reason: CONSTIPATION Last Admin: 07/17/19 16:33 Dose: 30 ml Magnesium Hydroxide (Milk Of Magnesia Liq*) 30 ml PO BID [facility] Last Admin: 07/21/19 08:53 Dose: Not Given Magnesium Hydroxide (Milk Of Magnesia Liq*) 30 ml PO Q6H PRN PRN Reason: CONSTIPATION Metoprolol Tartrate (Lopressor Tab*) 25 mg PO QAM [facility] Last Admin: 07/21/19 08:53 Dose: Not Given Morphine Sulfate (Morphine Inj (Syringe))*) 2 mg IV Q4H PRN PRN Reason: Pain - Unrelieved Last Admin: 07/20/19 21:19 Dose: 2 mg Morphine Sulfate (Ms Contin(*)) 15 mg PO Q12H [facility] Last Admin: 07/21/19 11:31 Dose: 15 mg Multivitamins (Theragran Tab*) 1 tab PO DAILY [facility] Last Admin: 07/21/19 08:52 Dose: 1 tab Ondansetron HCl (Zofran Inj*) 4 mg IV Q6H PRN PRN Reason: NAUSEA Last Admin: 07/20/19 13:20 Dose: 4 mg Ondansetron HCl (Zofran Odt Tab*) 4 mg PO Q6H PRN PRN Reason: NAUSEA Ondansetron HCl (Zofran Tab*) 4 mg PO Q6H PRN PRN Reason: NAUSEA Last Admin: 07/21/19 09:47 Dose: 4 mg Oxycodone HCl (Roxycodone Tab*) 5 mg PO Q4H PRN PRN Reason: PAIN - SEVERE Last Admin: 07/16/19 16:58 Dose: 5 mg Oxycodone HCl (Roxycodone Tab*) 10 mg PO Q4H PRN PRN Reason: PAIN - MORE SEVERE Last Admin: 07/21/19 09:47 Dose: 10 mg Pharmacy Profile Note (Scopolamine Patch Remove*) 1 note PATCH OFF Q72H PRN PRN Reason: NAUSEA Polyethylene Glycol/Electrolytes (Miralax (17 Gm Dose Shiraz)) 17 gm PO DAILY PRN PRN Reason: Constipation Last Admin: 07/19/19 20:32 Dose: 17 gm Potassium Chloride (Klor Con Er Tab*) 10 meq PO QAM [facility] Last Admin: 07/21/19 08:52 Dose: 10 meq Rivaroxaban (Xarelto(*)) 20 mg PO DAILY WITH MEAL [facility] Last Admin: 07/21/19 08:53 Dose: 20 mg Scopolamine (Transderm-Scop 1.5 Mg Patch*) 1 patch TRANSDERM Q72H PRN PRN Reason: NAUSEA Tramadol HCl (Ultram*) 50 mg PO Q6H PRN PRN Reason: PAIN - MODERATE Last Admin: 07/21/19 14:42 Dose: 50 mg Vital Signs - 8 hr 07/21/19 07/21/19 07/21/19 08:04 09:03 09:04 Temperature 98.5 F Pulse Rate 92 Respiratory 16 18 18 Rate Blood Pressure 100/68 (mmHg) O2 Sat by Pulse 92 Oximetry 07/21/19 07/21/19 07/21/19 09:47 11:31 11:46 Temperature 98.6 F Pulse Rate 97 Respiratory 16 18 18 Rate Blood Pressure 105/53 (mmHg) O2 Sat by Pulse 95 Oximetry 07/21/19 07/21/19 14:41 14:42 Temperature Pulse Rate Respiratory 18 18 Rate Blood Pressure (mmHg) O2 Sat by Pulse Oximetry Oxygen Devices in Use Now: None Appearance: 74 yo F in nAD, aAOx3 Eyes: No Scleral Icterus, PERRLA Ears/Nose/Mouth/Throat: NL Teeth, Lips, Gums, Mucous Membranes Moist Neck: NL Appearance and Movements; NL JVP Respiratory: Symmetrical Chest Expansion and Respiratory Effort, Clear to Auscultation Cardiovascular: NL Sounds; No Murmurs; No JVD, RRR, - - tachy Abdominal: NL Sounds; No Tenderness; No Distention, No Hepatosplenomegaly Lymphatic: No Cervical Adenopathy Extremities: - - left calf wiiht edema and posterior calf ecchymosis/hematoma at approx 12 cm in diam Skin: No Rash or Ulcers, - - left knee incision not uncovered for evaluation Neurological: Alert and Oriented x 3, NL Muscle Strength and Tone Result Diagrams: 07/21/19 07:01 07/21/19 07:01 Microbiology and Other Data: Microbiology 07/17/19 18:30 Urine Culture - Final Urine No Growth (<1,000 CFU/mL) Assess/Plan/Problems-Billing Assessment: is a 74yo F with pmhx significant for HTN, AFib, hx breast CA. She had an elective L TKR with on 07/15/19 and was admitted to [facility]. - Patient Problems (1) Status post total left knee replacement Comment: -Pain management, bowel management, incision management per orthopedics. (2) Anemia due to acute blood loss Comment: -tx with IV iron today -1 unit PRBC on 07/15 for symptomatic anemia -1 unit PRBC on 07/18 for symptomatic anemia Denies dizziness today, denies chest pain -pt developed left calf hematoma over her post op course. The bleeding appears to have stopped as Hb is table post last transfusion 07/19/19 -stool hemoccult neg (3) History of atrial fibrillation Current Visit: Yes Comment: -Continue metoprolol 25mg PO QDay with hold parameters -had a short burst of a. fib on 07/20/19 night. Has h/o PAF -d/c telem (4) DVT prophylaxis Comment: -xarelto Status and Disposition: medicine consult, pt is awaiting STR bed, will follow
[2019-07-21] MEDS ORDERED: Ferric Gluconate IV* 125 MG in NS 0.9% 100 ML* 100 ML IVPB ONE (16:30)
[2019-07-21] MEDS: PROPAFENONE 225 MG PO SCH ×2 (18:20→20:43)
[2019-07-21] MEDS ORDERED: Metoclopramide IV* 5 MG/ML 2 ML VIAL ONE (18:35)
[2019-07-21] MEDS ORDERED: Metoprolol Tartrate IV* 1 MG/ML 5 ML VIAL ONE (18:42)
[2019-07-21] MEDS: Metoprolol Tartrate IV* 1 MG/ML 5 ML VIAL IV PRN ×2 (18:43→22:51)
[2019-07-21] MEDS: Morphine INJ* 2 MG/ML 1 ML SYRINGE (TWO MG - NEW SYRINGE VERSION) IV PRN (20:45)
[2019-07-21] MEDS ORDERED: NS 0.9% 500 ML* 500 ML IV ONE (21:27)
[2019-07-22] MEDS: Morphine INJ* 2 MG/ML 1 ML SYRINGE (TWO MG - NEW SYRINGE VERSION) IV PRN (03:24)
[2019-07-22 04:00] LABS: ABS Basophils 0.1 10^3/ul (0-0.2); ABS Eosinophils 0.3 10^3/ul (0-0.6); ABS Lymphocytes 0.9 10^3/ul (1.0-4.8); ABS Neutrophils 4.9 10^3/ul (1.5-7.7); Eosinophil % 3.7 %; Hematocrit 24 % (35-47); Lymphocyte % 13.3 %; Mean Corpuscular HGB Conc 33 g/dL (31-36); Mean Corpuscular Hemoglobin 29 pg (27-31); Mean Corpuscular Volume 89 fL (80-97); Mean Platelet Volume 7.6 fL (7.4-10.4); Nucleated Red Blood Cells % 0.1; Platelet Count 251 10^3/uL (150-450); Red Cell Distribution Width 17 % (10-15); White Blood Count 7.1 10^3/uL (3.5-10.8)
[2019-07-22] MEDS: Metoprolol Tartrate IV* 1 MG/ML 5 ML VIAL IV PRN (04:10)
[2019-07-22 04:18] LABS: Troponin I 0.02 ng/mL (<0.03)
[2019-07-22] MEDS ORDERED: Iohexol 350* (CONTRAST) 500 ML MDV IV ONE (04:56)
[2019-07-22] MEDS: Metoprolol Tartrate TAB* 25 MG PO SCH (08:10)
[2019-07-22] MEDS: oxyCODONE TAB* 5 MG TAB PO PRN ×3 (08:11→20:40)
[2019-07-22] MEDS ORDERED: Metoprolol Tartrate IV* 1 MG/ML 5 ML VIAL IV PRN (09:00)
[2019-07-22] MEDS: Atorvastatin* 10 MG TAB PO SCH (09:12)
[2019-07-22] MEDS: Potassium Chlor TAB* 10 MEQ TAB.ER PO SCH (09:12)
[2019-07-22] MEDS: Docusate CAP* 100 MG PO SCH ×2 (09:12→20:40)
[2019-07-22] MEDS: Rivaroxaban TAB(*) 20 MG TAB PO SCH (09:12)
[2019-07-22] MEDS: Calcium Carbonate CHEW TAB* 500 MG (TUMS) PO SCH ×3 (09:12→20:40)
[2019-07-22] MEDS: Magnesium Hydroxide LIQ* 30 ML UDC PO SCH ×2 (09:12→20:43)
[2019-07-22] MEDS: Vitamin THERAPEUTIC TAB PO SCH (09:13)
[2019-07-22] MEDS: PROPAFENONE 225 MG PO SCH ×2 (10:23→20:40)
--- NOTE | 2019-07-22 10:42 | ECHO ---
*[facility]* [place] [address] Fax #: [phone] Transthoracic Echocardiogram Patient: Angeli Madrigal : 1945 Study Date: 07/22/2019 Age: 74 Gender: F HR: 107 bpm Height: 66 in /167.6 cm BSA: 1.89 m^2 Weight: 175.6 lb /79.8 kg BMI: 28.4 kg/m^2 *Aerodynamicist: * Bailee Valdes *Referring Physician: * Suzanna Llanes *Reading Physician: * Jose Mora MD Indications: Chest Pain, unspecified. History: Atrial fibrillation. Risk factors: Hypertension. Conclusions Summary: - Left ventricle: Systolic function is mildly reduced. The estimated ejection fraction is 45-50%. Wall motion is low normal; there are no regional wall motion abnormalities.Mild global hypokinesis - Right ventricle: Systolic function is mildly reduced. - Mitral valve: There is trace regurgitation. - Aortic valve: Transvalvular velocity is within the normal range. There is no evidence of stenosis. - Tricuspid valve: There is trace regurgitation. - Pulmonary arteries: Systolic pressure is within the normal range, estimated to be 34 mm Hg. - Compared to study of 06/23/2019, the left ventricle function is slightly lower. Study data: Transthoracic echocardiogram. Procedure: Transthoracic echocardiography was performed. Image quality was good. Complete 2D, spectral Doppler, and color flow Doppler. Location: Bedside. Patient status: Inpatient. Patient room number: 443-01. Rhythm: Atrial fibrillation. Findings Left ventricle: The cavity size is normal. Wall thickness is mildly increased. Systolic function is mildly reduced. The estimated ejection fraction is 45-50%. Wall motion is low normal; there are no regional wall motion abnormalities.Mild global hypokinesis Left ventricular diastolic function parameters are indeterminate. Right ventricle: The cavity size is at the upper limits of normal. Systolic function is mildly reduced. Ventricular septum: The ventricular septum is normal. Left atrium: The atrium is mildly to moderately dilated. Right atrium: The atrium is normal in size. Mitral valve: The valve is structurally normal. There is no evidence of stenosis. There is trace regurgitation. Aortic valve: The valve is structurally normal. The valve is trileaflet. Cusp separation is normal. Transvalvular velocity is within the normal range. There is no evidence of stenosis. There is trace regurgitation. Tricuspid valve: The valve is structurally normal. There is no evidence of stenosis. There is trace regurgitation. Pulmonic valve: The valve is structurally normal. There is no evidence of stenosis. There is trace regurgitation. Aorta: The aortic root appears normal. The aortic arch appears normal. Pericardium: There is no significant pericardial effusion. Pulmonary arteries: Systolic pressure is within the normal range, estimated to be 34 mm Hg. Systemic veins: Inferior vena cava: The vessel is normal in size. There is (>= 50%) respiratory change in the IVC dimension. Pulmonary veins: The Pulmonary veins appear normal. Measurements Left ventricle Value Ref Aortic valve Value Ref GERRY, LAX 4.9 cm 3.8 - 5.2 Peak v, S 1.23 m/sec ----- ESD, LAX (H) 3.6 cm 2.2 - 3.5 VTI, S 18.4 cm ----- FS, LAX 28 % 27 - 45 Mean grad, S 4.0 mm Hg ----- PW, ED, LAX (H) 1.2 cm 0.6 - 0.9 Peak grad, S 6.0 mm Hg ----- Qs 6.2 L/min SHAHID, VTI 2.31 cm^2 ----- E', lat suzan, TDI 13.8 cm/sec >=10.0 SHAHID, Vmax 2.14 cm^2 ----- E/e', lat suzan, 7 TDI Mitral valve Value Ref Peak E 0.97 m/sec ----- LVOT Value Ref Decel time 211 ms ----- Diam, S 2.00 cm Peak grad, D 3.8 mm Hg ----- Area 3.1 cm^2 Peak janiya, S 0.84 m/sec Tricuspid valve Value Ref Mean grad, S 2 mm Hg TR peak v 2.68 m/sec <=2.8 SV 44 ml Peak RV-RA grad, S 29 mm Hg ----- Max TR janiya 2.7 m/sec ----- Ventricular septum Value Ref IVS, ED (H) 1.4 cm 0.6 - 0.9 Aortic root Value Ref Root diam 3.1 cm <4.1 Right ventricle Value Ref GERRY, LAX 3.1 cm Ascending aorta Value Ref GERRY minor ax, (H) 4.0 cm 1.9 - 3.5 AAo AP diam, S 3.3 cm ----- A4C mid Aortic arch Value Ref Left atrium Value Ref Arch diam 2.8 cm ----- AP dim, ES 3.80 cm 2.70 - 3.80 Decending aorta Value Ref ML dim, A4C 4.6 cm Jesse peak janiya 0.61 m/sec ----- SI dim, A4C 6.1 cm Vol/bsa, ES, 1-p 38 ml/m^2 11 - 40 Inferior vena cava Value Ref A4C Diam 2.2 cm ----- Right atrium Value Ref SI dim, ES (H) 5.4 cm 3.4 - 5.3 ML dim, ES, A4C 2.9 cm 2.6 - 4.4 SI dim, ES, A4C (H) 5.4 cm 3.4 - 5.3 Legend: (L) and (H) amado values outside specified reference range. Prepared and electronically signed by Jose Mora MD 07/22/2019 10:42
[2019-07-22 11:05] LABS: C Reactive Protein 231.42 mg/L (<8.01)
--- NOTE | 2019-07-22 13:14 | PN ---
Progress Note - Progress Note Date of Service: 07/22/19 SOAP: Subjective: []Pt seen and examined at bedside. She feels well without CP, SOB, cough. Knee pain is improved, continues to make progress with PT. Rapid a fib overnight, EKGs and Echo done, cardio consulted. CRP elevated today. Objective: []gen: NAD, nontoxic appearing LLE: Dressing changed, incision CDI with ecchymosis surrounding incision no erythema. thigh soft, df/pf intact, dp2+, sensation intact to light touch distally. L Calf with induration and ecchymosis, mild tenderness, no erythema, no palpable cords R calf supple and notnender Assessment: []s/p left TKA; POD#5 Plan: PT/OT- WBAT Continue with pain medication, may cont MS contin 15mg bid as needed Pt has a bed offer at [facility], we are currently awaiting authorization from insurance. CRP elevation can be seen as a reactive process s/p surgery though this is higher than I would anticipate 1 week post op. In picture of tachycardia, pleural effusions, calf hematoma will start prophylactic abx. Started ceftriaxone A fib: Cardiac consult in place Pleural effusions: Asymptomatic, if symptomatic will consider pulm consult. May need lasix but BP cannot support at this time Vital Signs Temp 98 F 07/22/19 10:55 Pulse 97 07/22/19 10:55 Resp 12 07/22/19 10:55 BP 109/69 07/22/19 11:39 Pulse Ox 97 07/22/19 10:55 Intake & Output 07/21/19 07/22/19 07/22/19 18:59 06:59 18:59 Intake Total 960 0 0 Output Total 3450 Balance -2490 0 0 Weight 176 lb Intake: Oral 960 0 0 Output: Urine 3450 Laboratory Last Values WBC 7.1 10^3/uL (3.5-10.8) 07/22/19 03:53 RBC 2.70 10^6 /uL (3.70-4.87) L 07/22/19 03:53 Hgb 8.0 g/dL (12.0-16.0) L 07/22/19 03:53 Hct 24 % (35-47) L 07/22/19 03:53 MCV 89 fL (80-97) 07/22/19 03:53 MCH 29 pg (27-31) 07/22/19 03:53 MCHC 33 g/dL (31-36) 07/22/19 03:53 RDW 17 % (10-15) H 07/22/19 03:53 Plt Count 251 10^3/uL (150-450) 07/22/19 03:53 MPV 7.6 fL (7.4-10.4) 07/22/19 03:53 Neut % (Auto) 68.8 % 07/22/19 03:53 Lymph % (Auto) 13.3 % 07/22/19 03:53 Brantley % (Auto) 13.4 % 07/22/19 03:53 Eos % (Auto) 3.7 % 07/22/19 03:53 Baso % (Auto) 0.8 % 07/22/19 03:53 Absolute Neuts (auto) 4.9 10^3/ul (1.5-7.7) 07/22/19 03:53 Absolute Lymphs (auto) 0.9 10^3/ul (1.0-4.8) L 07/22/19 03:53 Absolute Monos (auto) 1.0 10^3/ul (0-0.8) H 07/22/19 03:53 Absolute Eos (auto) 0.3 10^3/ul (0-0.6) 07/22/19 03:53 Absolute Basos (auto) 0.1 10^3/ul (0-0.2) 07/22/19 03:53 Absolute Nucleated RBC 0.0 10^3/ul 07/22/19 03:53 Nucleated RBC % 0.1 07/22/19 03:53 INR (Anticoag Therapy) 1.09 (0.82-1.09) 07/15/19 11:07 Sodium 135 mmol/L (135-145) 07/21/19 07:01 Potassium 4.1 mmol/L (3.5-5.0) 07/21/19 07:01 Chloride 101 mmol/L (101-111) 07/21/19 07:01 Carbon Dioxide 27 mmol/L (22-32) 07/21/19 07:01 Anion Gap 7 mmol/L (2-11) 07/21/19 07:01 BUN 14 mg/dL (6-24) 07/21/19 07:01 Creatinine 0.68 mg/dL (0.51-0.95) 07/21/19 07:01 Est GFR ( Amer) 101.8 (>60) 07/21/19 07:01 Est GFR (Non-Af Amer) 84.1 (>60) 07/21/19 07:01 BUN/Creatinine Ratio 20.6 (8-20) H 07/21/19 07:01 Glucose 125 mg/dL (70-100) H 07/21/19 07:01 Calcium 8.1 mg/dL (8.6-10.3) L 07/21/19 07:01 Magnesium 2.1 mg/dL (1.9-2.7) 07/21/19 07:01 Troponin I 0.01 ng/mL (<0.03) 07/22/19 09:09 C-Reactive Protein 231.42 mg/L (<8.01) H 07/22/19 03:53 Urine Color Yellow 07/17/19 18:30 Urine Appearance Clear 07/17/19 18:30 Urine pH 6.0 (5-9) 07/17/19 18:30 Ur Specific [place] 1.006 (1.010-1.030) L 07/17/19 18:30 Urine Protein Negative (Negative) 07/17/19 18:30 Urine Ketones Negative (Negative) 07/17/19 18:30 Urine Blood 1+ (Negative) A 07/17/19 18:30 Urine Nitrate Negative (Negative) 07/17/19 18:30 Urine Bilirubin Negative (Negative) 07/17/19 18:30 Urine Urobilinogen Negative (Negative) 07/17/19 18:30 Ur Leukocyte Esterase 1+ (Negative) A 07/17/19 18:30 Urine WBC (Auto) 1+(6-10/hpf) (Absent) A 07/17/19 18:30 Urine RBC (Auto) Trace(0-2/hpf) (Absent) 07/17/19 18:30 Ur Squamous Epith Cells Present (Absent) A 07/17/19 18:30 Urine Bacteria Absent (Absent) 07/17/19 18:30 Urine Glucose Negative (Negative) 07/17/19 18:30 Blood Type O Positive 07/22/19 03:53 Antibody Screen Negative 07/22/19 03:53 Crossmatch See Detail 07/22/19 03:53
[2019-07-22] MEDS: Morphine TAB Extended Release (*) 15 MG TAB.ER PO SCH ×2 (14:03→23:12)
[2019-07-22] MEDS: Metoprolol Tartrate TAB* 50 mg PO SCH ×2 (14:19→20:40)
[2019-07-22] MEDS: Polyethylene Glycol 3350* 17 GM PACKET PO PRN (15:03)
[2019-07-22] MEDS: cefTRIAXone(*) 1 GM in NS 0.9% 50 ML* 50 ML IVPB SCH (15:03)
--- NOTE | 2019-07-22 15:45 | PN ---
Subjective Date of Service: 07/22/19 Interval History: Pt was seen with this AM. upset that he was not called about pt' s CP last night. Pt stated that she felt substernal pressure when moving from one bed to the other when she was being moved to telemetry floor. She is unsure how long the pain lasted, but it resolved once she "settled down". Both pt and her are very nonspecific in their answers, get upset easily. Pt stated that Dr. Mora planned to have a meeting with her at 1Pm, later on she asked me if I am meeting with them at 1. Family History: Unchanged from Admission Social History: Unchanged from Admission Past Medical History: Unchanged from Admission Objective Active Medications: Atorvastatin Calcium (Lipitor*) 10 mg PO QAM [facility] Last Admin: 07/22/19 09:12 Dose: 10 mg Bisacodyl (Dulcolax Supp*) 10 mg ND DAILY PRN PRN Reason: CONSTIPATION Last Admin: 07/19/19 17:49 Dose: 10 mg Calcium Carbonate (Tums*) 500 mg PO TID [facility] Last Admin: 07/22/19 15:03 Dose: 500 mg Cyclobenzaprine HCl (Flexeril Tab*) 10 mg PO Q6H PRN PRN Reason: SPASMS Last Admin: 07/21/19 14:41 Dose: 10 mg Diphenhydramine HCl (Benadryl Iv*) 25 mg IV Q6H PRN PRN Reason: PRURITIS Diphenhydramine HCl (Benadryl Po*) 25 mg PO Q6H PRN PRN Reason: PRURITIS Docusate Sodium (Colace Cap*) 100 mg PO BID [facility] Last Admin: 07/22/19 09:12 Dose: 100 mg Ceftriaxone Sodium 1 gm/ (Sodium Chloride) 50 mls @ 100 mls/hr IVPB Q24H [facility] Last Admin: 07/22/19 15:03 Dose: 100 mls/hr Lactulose (Lactulose*) 30 ml PO BID PRN PRN Reason: CONSTIPATION Last Admin: 07/17/19 16:33 Dose: 30 ml Magnesium Hydroxide (Milk Of Magnesia Liq*) 30 ml PO BID [facility] Last Admin: 07/22/19 09:12 Dose: 30 ml Magnesium Hydroxide (Milk Of Magnesia Liq*) 30 ml PO Q6H PRN PRN Reason: CONSTIPATION Metoprolol Tartrate (Lopressor Iv*) 5 mg IV Q6H PRN PRN Reason: TACHYCARDIA Last Admin: 07/22/19 04:10 Dose: 5 mg Metoprolol Tartrate (Lopressor Iv*) 5 mg IV ONCE PRN PRN Reason: HR OVER 120 Stop: 07/22/19 23:59 Last Admin: 07/22/19 09:00 Dose: 5 mg Metoprolol Tartrate (Lopressor Tab*) 50 mg PO BID [facility] Last Admin: 07/22/19 14:19 Dose: Not Given Morphine Sulfate (Morphine Inj (Syringe))*) 2 mg IV Q4H PRN PRN Reason: Pain - Unrelieved Last Admin: 07/22/19 03:24 Dose: 2 mg Morphine Sulfate (Ms Contin(*)) 15 mg PO Q12H [facility] Last Admin: 07/22/19 14:03 Dose: Not Given Multivitamins (Theragran Tab*) 1 tab PO DAILY [facility] Last Admin: 07/22/19 09:13 Dose: 1 tab Ondansetron HCl (Zofran Inj*) 4 mg IV Q6H PRN PRN Reason: NAUSEA Last Admin: 07/20/19 13:20 Dose: 4 mg Ondansetron HCl (Zofran Odt Tab*) 4 mg PO Q6H PRN PRN Reason: NAUSEA Ondansetron HCl (Zofran Tab*) 4 mg PO Q6H PRN PRN Reason: NAUSEA Last Admin: 07/21/19 18:20 Dose: 4 mg Oxycodone HCl (Roxycodone Tab*) 5 mg PO Q4H PRN PRN Reason: PAIN - SEVERE Last Admin: 07/16/19 16:58 Dose: 5 mg Oxycodone HCl (Roxycodone Tab*) 10 mg PO Q4H PRN PRN Reason: PAIN - MORE SEVERE Last Admin: 07/22/19 14:15 Dose: 10 mg Pharmacy Profile Note (Scopolamine Patch Remove*) 1 note PATCH OFF Q72H PRN PRN Reason: NAUSEA Polyethylene Glycol/Electrolytes (Miralax (17 Gm Dose Shiraz)) 17 gm PO DAILY PRN PRN Reason: Constipation Last Admin: 07/22/19 15:03 Dose: 17 gm Potassium Chloride (Klor Con Er Tab*) [facility] [place] Admin: 07/22/19 09:12 Dose: 10 meq Propafenone HCl (Rythmol Sr (Nf)) 225 mg PO Q12HR [facility] Last Admin: 07/22/19 10:23 Dose: 225 mg Rivaroxaban (Xarelto(*)) 20 mg PO DAILY WITH MEAL [facility] Last Admin: 07/22/19 09:12 Dose: 20 mg Scopolamine (Transderm-Scop 1.5 Mg Patch*) 1 patch TRANSDERM Q72H PRN PRN Reason: NAUSEA Tramadol HCl (Ultram*) 50 mg PO Q6H PRN PRN Reason: PAIN - MODERATE Last Admin: 07/21/19 14:42 Dose: 50 mg Vital Signs - 8 hr 07/22/19 07/22/19 07/22/19 08:00 08:11 10:30 Temperature Pulse Rate Respiratory 17 17 Rate Blood Pressure 88/44 (mmHg) O2 Sat by Pulse 95 Oximetry 07/22/19 07/22/19 07/22/19 10:34 10:55 11:20 Temperature 98 F Pulse Rate 97 Respiratory 12 Rate Blood Pressure 95/60 88/44 98/69 (mmHg) O2 Sat by Pulse 97 Oximetry 07/22/19 07/22/19 07/22/19 11:39 14:15 14:19 Temperature Pulse Rate Respiratory 16 17 Rate Blood Pressure 109/69 (mmHg) O2 Sat by Pulse Oximetry Oxygen Devices in Use Now: Nasal Cannula Appearance: 74 yo F in nAD, aAOx3 Eyes: No Scleral Icterus, PERRLA Ears/Nose/Mouth/Throat: NL Teeth, Lips, Gums, Mucous Membranes Moist Neck: NL Appearance and Movements; NL JVP, Trachea Midline Respiratory: Symmetrical Chest Expansion and Respiratory Effort, - - fine bibasiliar crackles Cardiovascular: - - irregular, no murmur Abdominal: NL Sounds; No Tenderness; No Distention, No Hepatosplenomegaly Lymphatic: No Cervical Adenopathy Extremities: No Clubbing, Cyanosis, - - large left calf edema with hematoma and ecchymosis over the entire posterior calf Skin: No Nodules or Sclerosis, - - see above Neurological: Alert and Oriented x 3, NL Muscle Strength and Tone Result Diagrams: 07/22/19 03:53 07/21/19 07:01 Microbiology and Other Data: Microbiology 07/17/19 18:30 Urine Culture - Final Urine No Growth (<1,000 CFU/mL) Assess/Plan/Problems-Billing Assessment: is a 74yo F with pmhx significant for HTN, AFib, hx breast CA. She had an elective L TKR with on 07/15/19 and was admitted to [facility]. - Patient Problems (1) Status post total left knee replacement Comment: -Pain management, bowel management, incision management per orthopedics. (2) Anemia due to acute blood loss Comment: -tx with IV iron 07/19, 07/21/19 -1 unit PRBC on 07/15 for symptomatic anemia -1 unit PRBC on 07/18 for symptomatic anemia -1 unit PRBC on 07/21 for Hb of 8 in pt with Matt arnett with RVR, as d/w cardiology -pt developed left calf hematoma over her post op course. The bleeding appears to have stopped as Hb is table post last transfusion 07/19/19 -stool hemoccult neg (3) History of atrial fibrillation Comment: Matt arnett with RVR on 07/21/19, transfered to telem. cont PO Propafenone BID started 07/20 cardiology consulted metoprolol increased to [address] Mora Echo pending (4) Chest pain Comment: Occured on 07/21/19 when moving, worse with cough, resolved CTA shows pleural effusions and loculated effusion-likely due to fluid overload , could use Lasix , but SBP low normal Troponin neg (5) CRP elevated Comment: marked elevation CRP-no obvious source of infection identified, pt is afebrile, no leukocytosis, but large left calf hematoma. Started on Ceftrixone 07/21 (6) DVT prophylaxis Comment: -xarelto Status and Disposition: medicine consult, will follow
[2019-07-22] MEDS: traMADol TAB* 50 MG PO PRN (17:14)
--- NOTE | 2019-07-22 23:43 | CONS ---
CC: Dr. Cotton; Dr. Patricia Smith * CONSULTATION REPORT: DATE OF CONSULT: 07/22/19 INDICATION FOR CONSULTATION: Atrial fibrillation. HISTORY OF PRESENT ILLNESS: The patient is a 74-year-old female with a history of rare paroxysmal atrial fibrillation, hypertension, breast cancer, who underwent a total knee replacement surgery for severe osteoarthritis, this occurred on 07/15/19. The patient has been in the hospital since 07/15/19 because of numerous mild complications. She did have bleeding into the site. She did have anemia. The patient started with atrial fibrillation on 09/14/18. She had a brief episode of atrial fibrillation that was self terminated. She had another brief episode of atrial fibrillation on the . The patient started atrial fibrillation yesterday and has been continuous since then. The patient did start Xarelto the day after the surgery at 20 mg a day. In speaking with the patient, she is actually doing well. She has severe fatigue and significant pain in her left knee. It is difficult for her to get out on her own. She is not aware of her atrial fibrillation. She denies any shortness of breath. She denies any chest pain. She denies any palpitations. No lightheadedness, dizziness, or syncope. PAST SURGICAL HISTORY: Cardiac catheterization in 2010 showing no coronary artery disease, total hip replacement in 2007, mastectomy in 2002, carpal tunnel release. The patient did have a stress test on 07/07/19, which showed no evidence of ischemia, normal LV function, ejection fraction 61%, TID was normal at 0.98. OUTPATIENT MEDICATIONS: 1. Bactrim DS as needed. 2. Xarelto 20 mg a day. 3. Propafenone 150 mg when she has atrial fibrillation. She says the last time she took it was more than 2 years ago. 4. Lisinopril 2.5 mg a day. 5. Metoprolol 25 mg once a day. 6. Potassium 10 mEq a day. 7. Atorvastatin 10 mg a day. 8. Diclofenac 50 mg b.i.d. ALLERGIES: She is intolerant of Tylenol. FAMILY HISTORY: No family history of early coronary artery disease or cardiac arrhythmias. SOCIAL HISTORY: The patient is retired. She denies tobacco or alcohol use. She does get regular exercise. She lives with her . REVIEW OF SYSTEMS: Negative for fevers and chills. Negative for changes in bowel or bladder habits. Positive for weight loss while she has been in the hospital. Other 12-point review is unremarkable. PHYSICAL EXAM: Height is 5 feet 5 inches, weight is 179 pounds. Blood pressure 98/48, heart rate is 122, respiratory rate is 16, oxygen saturation 97 % on room air, temperature 98.0 Fahrenheit. Carotids are 2+ without bruits. JVD is normal. Thyroid is normal. Cardiac Exam: S1, S2, tachycardic without any murmurs, rubs, or gallops. PMI is normal. Lungs are clear to auscultation bilateral. No dullness to percussion. Abdomen: Soft, nontender, nondistended with normoactive bowel sounds. Extremities: Show no edema. She does have dressing on her knee after a knee replacement. The patient is awake, alert and oriented. She moves her upper extremities normally. The patient is unable to ambulate. DIAGNOSTIC STUDIES/LAB DATA: Hemoglobin 8, hematocrit 24, platelet count 251. Chemistries within normal limits. BUN and creatinine are normal. Magnesium is normal at 2.1. Troponin are negative x3. IMPRESSION AND PLAN: This is a 74-year-old female with a history of paroxysmal atrial fibrillation, who was recently admitted to the hospital for knee replacement surgery, this was complicated by some bleeding into the site and atrial fibrillation. The patient is currently in atrial fibrillation with a rapid ventricular response. The patient has been started on her usual dose of propafenone 225 SR twice a day. The patient is on metoprolol 25 mg twice a day, I am going to increase that to 50 mg twice a day. At this point, I think the patient will stay on her rate control agents. The patient has been on anticoagulation since the day of her surgery. I think the patient should undergo cardioversion before discharge from the hospital. I would recommend at least another 24 hours of her propafenone to be in the system before she undergoes cardioversion. [id number]/[facility] #: [id number] MTDD
[2019-07-23] MEDS: traMADol TAB* 50 MG PO PRN (03:21)
[2019-07-23 06:07] LABS: ABS Basophils 0.1 10^3/ul (0-0.2); ABS Eosinophils 0.3 10^3/ul (0-0.6); ABS Lymphocytes 0.9 10^3/ul (1.0-4.8); ABS Neutrophils 5.8 10^3/ul (1.5-7.7); Eosinophil % 3.7 %; Hematocrit 26 % (35-47); Hemoglobin 8.8 g/dL (12.0-16.0); Lymphocyte % 10.5 %; Mean Corpuscular HGB Conc 34 g/dL (31-36); Mean Corpuscular Hemoglobin 30 pg (27-31); Mean Corpuscular Volume 88 fL (80-97); Mean Platelet Volume 7.7 fL (7.4-10.4); Platelet Count 266 10^3/uL (150-450); Red Blood Count 2.91 10^6 /uL (3.70-4.87); Red Cell Distribution Width 17 % (10-15); White Blood Count 8.1 10^3/uL (3.5-10.8)
[2019-07-23 06:28] LABS: C Reactive Protein 230.88 mg/L (<8.01); Calcium 8.4 mg/dL (8.6-10.3); EGFR African American 85.6 (>60); EGFR Non-African American 70.8 (>60); Potassium 4.4 mmol/L (3.5-5.0)
[2019-07-23] MEDS: Morphine TAB Extended Release (*) 15 MG TAB.ER PO SCH ×2 (10:26→21:55)
[2019-07-23] MEDS: Magnesium Hydroxide LIQ* 30 ML UDC PO SCH ×2 (10:27→21:55)
[2019-07-23] MEDS: Rivaroxaban TAB(*) 20 MG TAB PO SCH (10:28)
[2019-07-23] MEDS: Potassium Chlor TAB* 10 MEQ TAB.ER PO SCH (10:28)
[2019-07-23] MEDS: Docusate CAP* 100 MG PO SCH ×2 (10:28→21:56)
[2019-07-23] MEDS: Atorvastatin* 10 MG TAB PO SCH (10:28)
[2019-07-23] MEDS: Metoprolol Tartrate TAB* 50 mg PO SCH (10:28)
[2019-07-23] MEDS: Calcium Carbonate CHEW TAB* 500 MG (TUMS) PO SCH ×3 (10:28→21:57)
[2019-07-23] MEDS: Vitamin THERAPEUTIC TAB PO SCH (10:28)
[2019-07-23] MEDS: PROPAFENONE 225 MG PO SCH ×2 (10:29→22:01)
--- NOTE | 2019-07-23 10:33 | PN ---
Subjective Date of Service: 07/23/19 - CC: wants to go to PMRU, afib, RVR post knee replacement. Interval History: The patient is feeling better today, best she has felt in a while physically. Less aware of heart racing. No CP Knee pain improved. No c/o ambulating to commode. Medications Active Medications: Atorvastatin Calcium (Lipitor*) 10 mg PO QAM [facility] Last Admin: 07/22/19 09:12 Dose: 10 mg Bisacodyl (Dulcolax Supp*) 10 mg HI DAILY PRN PRN Reason: CONSTIPATION Last Admin: 07/19/19 17:49 Dose: 10 mg Calcium Carbonate (Tums*) 500 mg PO TID [facility] Last Admin: 07/22/19 20:40 Dose: 500 mg Cyclobenzaprine HCl (Flexeril Tab*) 10 mg PO Q6H PRN PRN Reason: SPASMS Last Admin: 07/21/19 14:41 Dose: 10 mg Diphenhydramine HCl (Benadryl Iv*) 25 mg IV Q6H PRN PRN Reason: PRURITIS Diphenhydramine HCl (Benadryl Po*) 25 mg PO Q6H PRN PRN Reason: PRURITIS Docusate Sodium (Colace Cap*) 100 mg PO BID [facility] Last Admin: 07/22/19 20:40 Dose: 100 mg Ceftriaxone Sodium 1 gm/ (Sodium Chloride) 50 mls @ 100 mls/hr IVPB Q24H [facility] Last Admin: 07/22/19 15:03 Dose: 100 mls/hr Lactulose (Lactulose*) 30 ml PO BID PRN PRN Reason: CONSTIPATION Last Admin: 07/17/19 16:33 Dose: 30 ml Magnesium Hydroxide (Milk Of Magnesia Liq*) 30 ml PO BID [facility] Last Admin: 07/22/19 20:43 Dose: 30 ml Magnesium Hydroxide (Milk Of Magnesia Liq*) 30 ml PO Q6H PRN PRN Reason: CONSTIPATION Metoprolol Tartrate (Lopressor Iv*) 5 mg IV Q6H PRN PRN Reason: TACHYCARDIA Last Admin: 07/22/19 04:10 Dose: 5 mg Metoprolol Tartrate (Lopressor Tab*) 50 mg PO BID [facility] Last Admin: 07/22/19 20:40 Dose: 50 mg Morphine Sulfate (Morphine Inj (Syringe))*) 2 mg IV Q4H PRN PRN Reason: Pain - Unrelieved Last Admin: 07/22/19 03:24 Dose: 2 mg Morphine Sulfate (Ms Contin(*)) 15 mg PO Q12H [facility] Last Admin: 07/22/19 23:12 Dose: 15 mg Multivitamins (Theragran Tab*) 1 tab PO DAILY [facility] Last Admin: 07/22/19 09:13 Dose: 1 tab Ondansetron HCl (Zofran Inj*) 4 mg IV Q6H PRN PRN Reason: NAUSEA Last Admin: 07/20/19 13:20 Dose: 4 mg Ondansetron HCl (Zofran Odt Tab*) 4 mg PO Q6H PRN PRN Reason: NAUSEA Ondansetron HCl (Zofran Tab*) 4 mg PO Q6H PRN PRN Reason: NAUSEA Last Admin: 07/21/19 18:20 Dose: 4 mg Oxycodone HCl (Roxycodone Tab*) 5 mg PO Q4H PRN PRN Reason: PAIN - SEVERE Last Admin: 07/16/19 16:58 Dose: 5 mg Oxycodone HCl (Roxycodone Tab*) 10 mg PO Q4H PRN PRN Reason: PAIN - MORE SEVERE Last Admin: 07/22/19 20:40 Dose: 10 mg Pharmacy Profile Note (Scopolamine Patch Remove*) 1 note PATCH OFF Q72H PRN PRN Reason: NAUSEA Polyethylene Glycol/Electrolytes (Miralax (17 Gm Dose Shiraz)) 17 gm PO DAILY PRN PRN Reason: Constipation Last Admin: 07/22/19 15:03 Dose: 17 gm Potassium Chloride (Klor Con Er Tab*) 10 meq PO QAM [facility] Last Admin: 07/22/19 09:12 Dose: 10 meq Propafenone HCl (Rythmol Sr (Nf)) 225 mg PO Q12HR [facility] Last Admin: 07/22/19 20:40 Dose: 225 mg Rivaroxaban (Xarelto(*)) 20 mg PO DAILY WITH MEAL [facility] Last Admin: 07/22/19 09:12 Dose: 20 mg Scopolamine (Transderm-Scop 1.5 Mg Patch*) 1 patch TRANSDERM Q72H PRN PRN Reason: NAUSEA Tramadol HCl (Ultram*) 50 mg PO Q6H PRN PRN Reason: PAIN - MODERATE Last Admin: 07/23/19 03:21 Dose: 50 mg Objective Vital Signs: Temp Pulse Resp BP Pulse Ox 98.5 F 99 15 105/55 97 07/23/19 07:25 07/23/19 07:25 07/23/19 08:00 07/23/19 07:25 07/23/19 07:25 Vital Signs - 12 hr Temp Pulse Resp BP Pulse Ox 07/23/19 08:00 15 07/23/19 07:25 98.5 F 99 16 105/55 97 07/23/19 03:21 16 07/23/19 03:09 97.7 F 105 16 104/60 97 07/23/19 02:51 16 07/22/19 23:14 97.5 F 113 18 114/58 98 07/22/19 23:12 16 Oxygen Devices in Use Now: Nasal Cannula Appearance: Older female, in bed, 30 degrees, cryounit on R knee, in room. NAD. Eyes: PERRLA Ears/Nose/Mouth/Throat: Mucous Membranes Moist Neck: NL Appearance and Movements; NL JVP Respiratory: Symmetrical Chest Expansion and Respiratory Effort, - - Diminished BS bases and mid lung dow, crackles bases improved but did not clear with coughing. Abdominal: NL Sounds; No Tenderness; No Distention - overweight Extremities: - - 2+ edema LLE, none RLE Skin: No Rash or Ulcers Neurological: Alert and Oriented x 3 Lines/Tubes/Other Access: Clean, Dry and Intact Peripheral IV Laboratory Results: 07/23/19 05:49 07/23/19 05:49 INR (Anticoag Therapy) 1.09 (0.82-1.09) 07/15/19 11:07 07/22/19 07/22/19 07/22/19 03:53 05:25 09:09 Troponin I 0.02 0.01 0.01 Diagnostic Imaging: Patient Name: SHENG HICKEY Medical Record#: [id number] Ordering Physician: Miguel Carvajal NP Acct.#: [id number] : 1945 Age: 74 Sex: F Location: [address] [place] [address]/TELEMETRY Exam Date: 07/22/19307 ADM Status: ADM IN Order Information: CTA CHEST Accession Number: [id number] CPT: 95210 PROCEDURE INFORMATION: Exam: CT Angiography Chest With Contrast Exam date and time: 07/22/2019 4:58 AM Age: 74 years old Clinical indication: Chest pain; Type not specified; Additional info: Chest pain ? pe TECHNIQUE: Imaging protocol: Computed tomographic angiography of the chest with intravenous contrast. 3D rendering: MIP and/or 3D reconstructed images were created by the technologist. Radiation optimization: All CT scans at this facility use at least one of these dose optimization techniques: automated exposure control; mA and/or kV adjustment per patient size (includes targeted exams where dose is matched to clinical indication); or iterative reconstruction. Contrast material: OMNI 350; Contrast volume: 71 ml; Contrast route: RIGHT AC; COMPARISON: OT CXR CHEST PA LAT 2 VWS 07/17/2019 4:35 PM FINDINGS: Pulmonary arteries: Adequate opacification of the of the pulmonary arterial system. No evidence of blood clot in the main or segmental pulmonary arteries. Some of the distal segmental pulmonary arteries are distorted by motion artifact. Aorta: Atheromatous changes involving the thoracic aorta. No evidence of an aneurysm or dissection. Lungs: Central lobar emphysema involving the mid to upper lung dow. Linear opacities located in lung bases which may represent areas of atelectasis and/or scarring. Pleural space: Small bilateral pleural effusions right greater than left with associated atelectasis. Loculated fluid collection located in the posterior aspect of the right mid lung field. Heart: Cardiac size is mildly enlarged. Mild thickening of the pericardium which may represent a small pericardial effusion. Cardiac size is enlarged. No evidence of right heart strain. Mild coronary calcification. Lymph nodes: No mediastinal adenopathy. Bones/joints: Small metallic clips located in the anterior aspect of the left shoulder. Spondylotic changes thoracic spine. Mild anterior wedge deformities in the lower thoracic spine. No acute fracture line is seen. Soft tissues: Decreased tissue in the left anterior chest. Patient may have had a mastectomy. IMPRESSION: 1. No acute pulmonary embolic disease. 2. Small bilateral pleural effusions right greater than left. Loculated fluid collection in the posterior aspect of the right mid lung field. Associated areas of atelectasis. 3. Mild cardiomegaly. Mild thickening of the pericardium which may represent a small pericardial cardial effusion. 4. Distended esophagus with an air-fluid level. This report is only to be considered final once signed by the Provider(s) as displayed in the "<Electronically Signed by >" field (s). Absence of a signature indicates the report is in a draft status and still needs to be finalized. In the event this document was created by someone other than the signing Provider, the individual initiating the document will be listed in the "Entered by:" or "Dictated by:" dow. 1 of 2 *[facility]* [place] [address] Fax #: [phone] Transthoracic Echocardiogram Patient: Sheng Hickey : 1945 Study Date: 07/22/2019 Age: 74 Gender: F HR: 107 bpm Height: 66 in /167.6 cm BSA: 1.89 m^2 Weight: 175.6 lb /79.8 kg BMI: 28.4 kg/m^2 *Diesel Maintenance Technician: Bailee Steinberg *Referring Physician: * Suzanna Llanes *Reading Physician: * Jose Mora MD Indications: Chest Pain, unspecified. History: Atrial fibrillation. Risk factors: Hypertension. Conclusions Summary: - Left ventricle: Systolic function is mildly reduced. The estimated ejection fraction is 45-50%. Wall motion is low normal; there are no regional wall motion abnormalities.Mild global hypokinesis - Right ventricle: Systolic function is mildly reduced. - Mitral valve: There is trace regurgitation. - Aortic valve: Transvalvular velocity is within the normal range. There is no evidence of stenosis. - Tricuspid valve: There is trace regurgitation. - Pulmonary arteries: Systolic pressure is within the normal range, estimated to be 34 mm Hg. - Compared to study of 06/23/2019, the left ventricle function is slightly lower. EKG Data: monitor: afib, sleep rates about 100 bpm, current rates 115 bpm Assessment/Plan 74 yo, s/p R TKA complicated by hematoma, post op AFib with RVR, elevated CRP and loculated pleural effusion R lung. PAF: Now on propafanone and metoprolol with improved rate control. Rate goal approx. 100 bpm. Xarelto started 07/16/2019. The patient is not interested for RAYNA/CV today, hoping to chemically cardiovert. If any tap of loculated effusion planned, better to prior to CV to minimize CVA risk. HOWEVER, after discussion with hospitalist NOW: no tap planned per hospitalist. Put on for poss. RAYNA and CV in AM Elevated CRP, loculated effusion: On ABX empirically, no clear source, ?hematoma related. Hospitalists evaluating. Atelectasis on CT and exam: Encouraged increase use of inspirex. Discussed PMRU and pt wishes with hospitalist.
[2019-07-23] MEDS ORDERED: Metoprolol Tartrate TAB* 25 MG PO ONE (12:13)
[2019-07-23] MEDS: cefTRIAXone(*) 1 GM in NS 0.9% 50 ML* 50 ML IVPB SCH (12:58)
--- NOTE | 2019-07-23 13:30 | PN ---
Progress Note - Progress Note Date of Service: 07/23/19 SOAP: Subjective: []Patient seen at bedside. She denies CP, SOB, cough, dizziness, lightheadedness , nausea. Knee pain is well controlled. Objective: []gen: NAD, nontoxic appearing LLE: Dressing changed, incision CDI with ecchymosis surrounding incision no erythema. thigh soft, df/pf intact, dp2+, sensation intact to light touch distally. Left Calf without erythema. + mild induration though compressible. + ecchymosis, less tenderness today, no palpable cords R calf supple and nontender Assessment: []s/p left TKA; POD#6 A fib Pleural effusion Calf hematoma Plan: PT/OT- WBAT Daily dry dressing chcange gauze and michaelle wrap Continue with pain medication, may cont MS contin 15mg bid as needed A fib: cardio has seen her, patient hopes to chemically cardiovert, she would like to avoid RAYNA/CV for now. On for possible RAYNA/ CV tomorrow morning Pleural effusions: Asymptomatic. Cont ceftriaxone. Discussed pleural effusion with medicine, no plan to tap at this time. Calf hematoma seems to be improving, will watch Change of service to medicine admit. Ortho will continue to follow her Vital Signs Temp 97.7 F 07/23/19 11:17 Pulse 108 07/23/19 11:17 Resp 16 07/23/19 11:17 BP 112/62 07/23/19 11:17 Pulse Ox 95 07/23/19 11:17 Intake & Output 07/22/19 07/23/19 07/23/19 18:59 06:59 18:59 Intake Total 0 0 Output Total 0 Balance 0 0 Intake: Oral 0 0 Output: Urine 0 Laboratory Last Values WBC 8.1 10^3/uL (3.5-10.8) 07/23/19 05:49 RBC 2.91 10^6 /uL (3.70-4.87) L 07/23/19 05:49 Hgb 8.8 g/dL (12.0-16.0) L 07/23/19 05:49 Hct 26 % (35-47) L 07/23/19 05:49 MCV 88 fL (80-97) 07/23/19 05:49 MCH 30 pg (27-31) 07/23/19 05:49 MCHC 34 g/dL (31-36) 07/23/19 05:49 RDW 17 % (10-15) H 07/23/19 05:49 Plt Count 266 10^3/uL (150-450) 07/23/19 05:49 MPV 7.7 fL (7.4-10.4) 07/23/19 05:49 Neut % (Auto) 72.0 % 07/23/19 05:49 Lymph % (Auto) 10.5 % 07/23/19 05:49 [place] % (Auto) 12.9 % 07/23/19 05:49 Eos % (Auto) 3.7 % 07/23/19 05:49 Baso % (Auto) 0.9 % 07/23/19 05:49 Absolute Neuts (auto) 5.8 10^3/ul (1.5-7.7) 07/23/19 05:49 Absolute Lymphs (auto) 0.9 10^3/ul (1.0-4.8) L 07/23/19 05:49 Absolute Monos (auto) 1.0 10^3/ul (0-0.8) H 07/23/19 05:49 Absolute Eos (auto) 0.3 10^3/ul (0-0.6) 07/23/19 05:49 Absolute Basos (auto) 0.1 10^3/ul (0-0.2) 07/23/19 05:49 Absolute Nucleated RBC 0.0 10^3/ul 07/23/19 05:49 Nucleated RBC % 0.0 07/23/19 05:49 INR (Anticoag Therapy) 1.09 (0.82-1.09) 07/15/19 11:07 Sodium 134 mmol/L (135-145) L 07/23/19 05:49 Potassium 4.4 mmol/L (3.5-5.0) 07/23/19 05:49 Chloride 100 mmol/L (101-111) L 07/23/19 05:49 Carbon Dioxide 29 mmol/L (22-32) 07/23/19 05:49 Anion Gap 5 mmol/L (2-11) 07/23/19 05:49 BUN 15 mg/dL (6-24) 07/23/19 05:49 Creatinine 0.79 mg/dL (0.51-0.95) 07/23/19 05:49 Est GFR ( Amer) 85.6 (>60) 07/23/19 05:49 Est GFR (Non-Af Amer) 70.8 (>60) 07/23/19 05:49 BUN/Creatinine Ratio 19.0 (8-20) 07/23/19 05:49 Glucose 113 mg/dL (70-100) H 07/23/19 05:49 Calcium 8.4 mg/dL (8.6-10.3) L 07/23/19 05:49 Magnesium 2.1 mg/dL (1.9-2.7) 07/21/19 07:01 Total Creatine Kinase 74 U/L (10-223) 07/23/19 05:49 Troponin I 0.01 ng/mL (<0.03) 07/22/19 09:09 C-Reactive Protein 230.88 mg/L (<8.01) H 07/23/19 05:49 Urine Color Yellow 07/17/19 18:30 Urine Appearance Clear 07/17/19 18:30 Urine pH 6.0 (5-9) 07/17/19 18:30 Ur Specific [place] 1.006 (1.010-1.030) L 07/17/19 18:30 Urine Protein Negative (Negative) 07/17/19 18:30 Urine Ketones Negative (Negative) 07/17/19 18:30 Urine Blood 1+ (Negative) A 07/17/19 18:30 Urine Nitrate Negative (Negative) 07/17/19 18:30 Urine Bilirubin Negative (Negative) 07/17/19 18:30 Urine Urobilinogen Negative (Negative) 07/17/19 18:30 Ur Leukocyte Esterase 1+ (Negative) A 07/17/19 18:30 Urine WBC (Auto) 1+(6-10/hpf) (Absent) A 07/17/19 18:30 Urine RBC (Auto) Trace(0-2/hpf) (Absent) 07/17/19 18:30 Ur Squamous Epith Cells Present (Absent) A 07/17/19 18:30 Urine Bacteria Absent (Absent) 07/17/19 18:30 Urine Glucose Negative (Negative) 07/17/19 18:30 Blood Type O Positive 07/22/19 03:53 Antibody Screen Negative 07/22/19 03:53 Crossmatch See Detail 07/22/19 03:53
--- NOTE | 2019-07-23 20:02 | PN ---
Subjective Date of Service: 07/23/19 Interval History: Patient this morning for initial encounter. She verbalize that she is feeling slightly better as compared to yesterday. Her mind is clearer and less foggy. there has been no documented fever and no leukocytosis. She did require so far 3 units pRBC this admission, No active bleed - Her pulse (Afib) remain elevated and I discussed the case with cardiology Dr. Guidry and recommended to increase Lopressor to 75 mg bid and maintain her on Rhythmol 225 mg bid. Patient was not enthusiastic regarding electric cardioversion but she was placed tentatively on the schedule for the morning in the event she does not cardiovert overnight. - Also regarding her Loculated effusion found on CTA chest from yesterday , I called and I spoke to the radiologist teacher of the emotionally disturbed for the overnight read and based on the fluid characteristic he did not think it was complicated pleural effusion rather simple fluid. (of course gold standard is throacocentesis). Past Medical History: Unchanged from Admission Objective Active Medications: Atorvastatin Calcium (Lipitor*) 10 mg PO QAM [facility] Last Admin: 07/23/19 10:28 Dose: 10 mg Bisacodyl (Dulcolax Supp*) 10 mg MA DAILY PRN PRN Reason: CONSTIPATION Last Admin: 07/19/19 17:49 Dose: 10 mg Calcium Carbonate (Tums*) 500 mg PO TID [facility] Last Admin: 07/23/19 12:58 Dose: 500 mg Cyclobenzaprine HCl (Flexeril Tab*) 10 mg PO Q6H PRN PRN Reason: SPASMS Last Admin: 07/21/19 14:41 Dose: 10 mg Diphenhydramine HCl (Benadryl Iv*) 25 mg IV Q6H PRN PRN Reason: PRURITIS Diphenhydramine HCl (Benadryl Po*) 25 mg PO Q6H PRN PRN Reason: PRURITIS Docusate Sodium (Colace Cap*) 100 mg PO BID [facility] Last Admin: 07/23/19 10:28 Dose: 100 mg Ceftriaxone Sodium 1 gm/ (Sodium Chloride) 50 mls @ 100 mls/hr IVPB Q24H [facility] Last Admin: 07/23/19 12:58 Dose: 100 mls/hr Lactulose (Lactulose*) 30 ml PO BID PRN PRN Reason: CONSTIPATION Last Admin: 07/17/19 16:33 Dose: 30 ml Magnesium Hydroxide (Milk Of Magnesia Liq*) 30 ml PO BID [facility] Last Admin: 07/23/19 10:27 Dose: 30 ml Magnesium Hydroxide (Milk Of Magnesia Liq*) 30 ml PO Q6H PRN PRN Reason: CONSTIPATION Metoprolol Tartrate (Lopressor Iv*) 5 mg IV Q6H PRN PRN Reason: TACHYCARDIA Last Admin: 07/22/19 04:10 Dose: 5 mg Metoprolol Tartrate (Lopressor Tab*) 75 mg PO BID [facility] Morphine Sulfate (Morphine Inj (Syringe))*) 2 mg IV Q4H PRN PRN Reason: Pain - Unrelieved Last Admin: 07/22/19 03:24 Dose: 2 mg Morphine Sulfate (Ms Contin(*)) 15 mg PO Q12H [facility] Last Admin: 07/23/19 10:26 Dose: 15 mg Multivitamins (Theragran Tab*) 1 tab PO DAILY [facility] Last Admin: 07/23/19 10:28 Dose: 1 tab Ondansetron HCl (Zofran Inj*) 4 mg IV Q6H PRN PRN Reason: NAUSEA Last Admin: 07/20/19 13:20 Dose: 4 mg Ondansetron HCl (Zofran Odt Tab*) 4 mg PO Q6H PRN PRN Reason: NAUSEA Ondansetron HCl (Zofran Tab*) 4 mg PO Q6H PRN PRN Reason: NAUSEA Last Admin: 07/21/19 18:20 Dose: 4 mg Oxycodone HCl (Roxycodone Tab*) 5 mg PO Q4H PRN PRN Reason: PAIN - SEVERE Last Admin: 07/16/19 16:58 Dose: 5 mg Pharmacy Profile Note (Scopolamine Patch Remove*) 1 note PATCH OFF Q72H PRN PRN Reason: NAUSEA Polyethylene Glycol/Electrolytes (Miralax (17 Gm Dose Shiraz)) 17 gm PO DAILY PRN PRN Reason: Constipation Last Admin: 07/22/19 15:03 Dose: 17 gm Potassium Chloride (Klor Con Er Tab*) 10 meq PO QAM [facility] Last Admin: 07/23/19 10:28 Dose: 10 meq Propafenone HCl (Rythmol Sr (Nf)) 225 mg PO Q12HR [facility] Last Admin: 07/23/19 10:29 Dose: 225 mg Rivaroxaban (Xarelto(*)) 20 mg PO DAILY WITH MEAL [facility] Last Admin: 07/23/19 10:28 Dose: 20 mg Scopolamine (Transderm-Scop 1.5 Mg Patch*) 1 patch TRANSDERM Q72H PRN PRN Reason: NAUSEA Tramadol HCl (Ultram*) 50 mg PO Q6H PRN PRN Reason: PAIN - MODERATE Last Admin: 07/23/19 03:21 Dose: 50 mg Vital Signs - 8 hr 07/23/19 12:30 Respiratory 15 Rate Oxygen Devices in Use Now: Nasal Cannula Appearance: mild pallor, good spirit. no distress. laying in bed confortably Eyes: No Scleral Icterus, - - EOMI Ears/Nose/Mouth/Throat: Clear Oropharnyx, Mucous Membranes Moist Neck: NL Appearance and Movements; NL JVP, Trachea Midline Respiratory: - - fine crackeles bibasilar. no rhonchi appreciated Cardiovascular: NL Sounds; No Murmurs; No JVD, - - irregularly irregular, tacchcyardic Abdominal: NL Sounds; No Tenderness; No Distention Extremities: - - LLE hematoma, non tender not warm Neurological: Alert and Oriented x 3 Result Diagrams: 07/23/19 05:49 07/23/19 05:49 Microbiology and Other Data: Microbiology 07/17/19 18:30 Urine Culture - Final Urine No Growth (<1,000 CFU/mL) Assess/Plan/Problems-Billing Assessment: is a 74yo F with pmhx significant for HTN, AFib, hx breast CA. She had an elective L TKR with on 07/15/19 and was admitted to [facility]. transferred to [address] [place] [address] for Afib and RVR - Patient Problems (1) Anemia Current Visit: Yes Status: Acute Code(s): D64.9 - ANEMIA, UNSPECIFIED SNOMED Code(s): 523770884 Comment: - fairly acute post op from 07.04. pre op (37) post op 24 - remained anemic despite 3 units pRBC total - I believe it is mixed as expected some post op loss and majority is due to her LLE hematoma. - today H/H stable up to 26 from 24 hct - will start Iron supplementation, B12, folic and MVI - also will start PPI for GI prophylaxsis (on anticoagulation) (2) Anemia due to acute blood loss Current Visit: Yes Status: Acute Code(s): D62 - ACUTE POSTHEMORRHAGIC ANEMIA SNOMED Code(s): 581818667 Comment: - s/p tx with IV iron 07/19, 07/21/19, s/p 3 u pRBC (07/15 ; 07/18 and one on 07/21) - pt developed left calf hematoma over her post op course. - stool hemoccult neg - If she continue to drift down than will need to explore hemolytic (less likely ) (3) CRP elevated Current Visit: Yes Status: Acute Code(s): R79.82 - ELEVATED C-REACTIVE PROTEIN (CRP) SNOMED Code(s): 747598354268655 Comment: - marked elevation CRP, ? infeciton or simply post operatively. - no obvious source of infection, However can not rule out pneumonaie with simple parapneumonic loculated effusion. (I called and I spoke to the radiologist teacher of the emotionally disturbed for the overnight read and based on the fluid characteristic he did not think it was complicated pleural effusion rather simple fluid). - Of course gold standard is throacocentesis. But this will require hold xaretlo and IR guided due to the small area. - Will esclate her antibiotic to cover nosocomial (d/c rocephin day # 2 and start cefepime today 07/23/19) and will order Us of the hematoma to make sure no fluid collection that may be infected. (4) History of atrial fibrillation Current Visit: Yes Status: Acute Code(s): Z86.79 - PERSONAL HISTORY OF OTHER DISEASES OF THE CIRCULATORY SYSTEM SNOMED Code(s): 128228557 Comment: - A. fib with RVR on 07/21/19, transfered to telem. - cont PO Propafenone 225 mg BID started 07/20 - cardiology consulted, started on metoprolol increased to [address] Mora, and today increased to 75 mg bid after discussing with cardiology. Tentatively for electric cardioversion for am if patient agrees. (5) Hypertension Current Visit: Yes Status: Acute Code(s): I10 - ESSENTIAL (PRIMARY) HYPERTENSION SNOMED Code(s): 78016343 Comment: - stable now that we are on lopressor 75 mg bid. Off her lisinopril (6) Hypomagnesemia Current Visit: Yes Status: Acute Code(s): E83.42 - HYPOMAGNESEMIA SNOMED Code(s): 414769131 Comment: - monitored daily given her Afib, ordered for am (7) Status post total left knee replacement Current Visit: Yes Status: Acute Code(s): Z96.652 - PRESENCE OF LEFT ARTIFICIAL KNEE JOINT SNOMED Code(s): 9143880378723 Comment: -Pain management, bowel management, incision management per orthopedics. (8) DVT prophylaxis Current Visit: Yes Status: Acute Code(s): Z29.9 - ENCOUNTER FOR PROPHYLACTIC MEASURES, UNSPECIFIED SNOMED Code(s): 888942021 Comment: -xarelto Status and Disposition: transferred to medicine, ortho will follow
[2019-07-23] MEDS: Cyanocobalamin TAB* 500 MCG PO SCH (21:56)
[2019-07-23] MEDS: Metoprolol Tartrate TAB* 25 MG PO SCH (21:56)
[2019-07-23] MEDS: Folic Acid TAB* 1 MG PO SCH (21:56)
[2019-07-23] MEDS: Ferrous Sulfate TAB* 325 MG PO SCH (21:56)
[2019-07-23] MEDS: Pantoprazole TAB * 40 MG TAB PO SCH (21:56)
[2019-07-23] MEDS: Cefepime 2 GM in Dextrose(*) 2 GM/50 ML BAG IV SCH (22:16)
[2019-07-24] MEDS: Cefepime 2 GM in Dextrose(*) 2 GM/50 ML BAG IV SCH ×3 (05:08→21:14)
[2019-07-24] MEDS: Calcium Carbonate CHEW TAB* 500 MG (TUMS) PO SCH ×3 (08:19→20:04)
[2019-07-24] MEDS: Potassium Chlor TAB* 10 MEQ TAB.ER PO SCH (08:20)
[2019-07-24] MEDS: Atorvastatin* 10 MG TAB PO SCH (08:20)
[2019-07-24] MEDS: Rivaroxaban TAB(*) 20 MG TAB PO SCH (08:20)
[2019-07-24] MEDS: Cyanocobalamin TAB* 500 MCG PO SCH (08:20)
[2019-07-24] MEDS: Folic Acid TAB* 1 MG PO SCH (08:20)
[2019-07-24] MEDS: Pantoprazole TAB * 40 MG TAB PO SCH (08:21)
[2019-07-24] MEDS: Ferrous Sulfate TAB* 325 MG PO SCH (08:21)
[2019-07-24] MEDS: Magnesium Hydroxide LIQ* 30 ML UDC PO SCH ×2 (08:30→20:05)
[2019-07-24] MEDS: Metoprolol Tartrate TAB* 25 MG PO SCH ×2 (08:30→20:14)
[2019-07-24] MEDS: PROPAFENONE 225 MG PO SCH ×2 (08:30→20:03)
[2019-07-24] MEDS: Docusate CAP* 100 MG PO SCH ×2 (08:30→20:03)
[2019-07-24] MEDS: Vitamin THERAPEUTIC TAB PO SCH (08:31)
[2019-07-24] MEDS ORDERED: Midazolam* 1 MG/ML 5 ML VIAL (5 MG) ONE (09:50)
[2019-07-24] MEDS ORDERED: Naloxone* 0.4 MG/ML 1 ML VIAL ONE (09:51)
[2019-07-24] MEDS ORDERED: Lidocaine 2% VISCOUS* 15 ML UDC ONE (09:51)
[2019-07-24] MEDS ORDERED: fentaNYL* 50 MCG/ML 2 ML VIAL (100 MCG VIAL) ONE (09:51)
[2019-07-24] MEDS ORDERED: Flumazenil* 0.1 MG/ML 5 ML MDV ONE (09:51)
[2019-07-24] MEDS: Morphine TAB Extended Release (*) 15 MG TAB.ER PO SCH ×2 (11:00→23:12)
--- NOTE | 2019-07-24 11:27 | TEE ---
*[facility]* [place] [address] Fax #: [phone] Transesophageal Echocardiogram Patient: Angeli Madrigal : 1945 Study Date: 07/24/2019 Age: 74 Gender: F HR: 118 bpm Height: 65 in /165.1 cm BSA: 1.94 m^2 Weight: 175.6 lb /79.8 kg BMI: 29.3 kg/m^2 *Airline Manager: * Loretta Whaley RD *Referring Physician: * Corina Guidry MD *Reading Physician: * Fidelina King MD Indications: Atrial Fibrillation. History: Atrial fibrillation. The patient has a history of left breast malignancy. Risk factors: Hypertension. Conclusions Summary: - Left ventricle: Systolic function is mildly reduced. The estimated ejection fraction is 45-50%, by visual assessment. - Left atrium: The atrium is moderately dilated. Emptying velocity is normal. There is no evidence of a thrombus in the atrial cavity or appendage. There is mildintermittent spontaneous echo contrast ("smoke") in the cavity. - Atrial septum: A PFO is not demonstrated by color Doppler or agitated saline contrast. - Mitral valve: There is mild regurgitation. - Aortic valve: There is trace regurgitation. - Tricuspid valve: There is mild-moderate regurgitation. - Pulmonic valve: There is trace regurgitation. Study data: Diagnostic Transesophageal Echocardiogram Consent: The risks and benefits of the procedure, including alternatives were discussed with the patient and/or their health care national account representative and written informed consent was obtained. Procedure: Initial setup: The patient was brought to the laboratory in the fasting state.Intravenous access was obtained. Surface ECG leads, heart rate, heart rhythm, blood pressure measurements, pulse oximetric signals, and mainstream end-tidal CO2 tracings were monitored throughout the procedure. Sedation. Moderate sedation was administered by nursing staff. History and physical as well as labs were reviewed. An oral bite block was inserted for protection of oral dentition. The patient was placed in the left lateral decubitus position. Topical anesthesia was obtained using viscous lidocaine. A transesophageal probe was inserted by the attending trauma program manager. Transesophageal echocardiography was performed, image quality was good, and all standard views were attempted within the limitations of patient tolerance and safety. Multiple 2D, color flow Doppler and spectral Doppler images were obtained.Satisfactory imaging could not be obtained from the transgastric acoustic window(s) due to patient agitation. The transesophageal probe was removed. A bubble study was performed. Location: Procedure room. Patient status: Inpatient. Patient room number: 443-01. Study completion: The patient tolerated the procedure well. There were no complications. Administered medications: Midazolam, 6mg. Fentanyl, 50mcg. Findings Left ventricle: The cavity size is normal. Wall thickness is mildly increased. Systolic function is mildly reduced. The estimated ejection fraction is 45-50%, by visual assessment. Right ventricle: The cavity size is normal. Systolic function is mildly reduced. Left atrium: The atrium is moderately dilated. Emptying velocity is normal. There is no evidence of a thrombus in the atrial cavity or appendage. There is mildintermittent spontaneous echo contrast ("smoke") in the cavity. Right atrium: The atrium is normal in size. There is the appearance of a Chiari network. Atrial septum: A PFO is not demonstrated by color Doppler or agitated saline contrast. Negative Bubble Study. Image 48. Mitral valve: The leaflets are normal thickness. There is no evidence of stenosis. There is mild regurgitation. Aortic valve: The valve is trileaflet. The leaflets are mildly thickened. There is no evidence of stenosis. There is trace regurgitation. Tricuspid valve: The leaflets are normal thickness. There is no evidence of stenosis. There is mild-moderate regurgitation. Pulmonic valve: The leaflets are normal thickness. There is no evidence of stenosis. There is trace regurgitation. Aorta: There is minimal atherosclerotic plaque visualized in the Transverse Aorta. Aortic root: The aortic root is appears normal. Ascending aorta: The ascending aorta is appears normal. Pericardium: There is no significant pericardial effusion. Pulmonary arteries: The main pulmonary artery is normal-sized. Systolic pressure can not be accurately estimated. Systemic veins: Normal Bicaval View. Inferior vena cava: The vessel is normal in size. Pulmonary veins: Well visualized. 3 of 4 visualized. The Pulmonary veins appear normal. Measurements Aortic valve Value Ref Aortic root Value Ref Anne diam, S 2.3 cm 1.9 - 2.7 Root diam 3.3 cm <4.1 Mitral valve Value Ref Ascending aorta Value Ref Peak E 0.89 m/sec --------- AAo AP diam, S 3.3 cm ---- Peak A 0.01 m/sec --------- Decel time 134 ms --------- Peak grad, D 3.2 mm Hg --------- Peak E/A ratio 113.75 --------- Legend: (L) and (H) amado values outside specified reference range. Prepared and electronically signed by Fidelina King MD 07/24/2019 11:27
--- NOTE | 2019-07-24 12:08 | PN ---
Subjective Date of Service: 07/24/19 Interval History: Pt is feeling ok. She states she has been constipated but did have a small amount of stool today. She notes that she is mildly short of breath, she does not use O2 at home. Objective Active Medications: Atorvastatin Calcium (Lipitor*) 10 mg PO QAM [facility] Last Admin: 07/24/19 08:20 Dose: 10 mg Bisacodyl (Dulcolax Supp*) 10 mg [place] DAILY PRN PRN Reason: CONSTIPATION Last Admin: 07/19/19 17:49 Dose: 10 mg Calcium Carbonate (Tums*) 500 mg PO TID [facility] Last Admin: 07/24/19 08:19 Dose: 500 mg Cyanocobalamin (Vitamin B12 Tab*) 1,000 mcg PO DAILY [facility] Last Admin: 07/24/19 08:20 Dose: 1,000 mcg Cyclobenzaprine HCl (Flexeril Tab*) 10 mg PO Q6H PRN PRN Reason: SPASMS Last Admin: 07/21/19 14:41 Dose: 10 mg Diphenhydramine HCl (Benadryl Iv*) 25 mg IV Q6H PRN PRN Reason: PRURITIS Diphenhydramine HCl (Benadryl Po*) 25 mg PO Q6H PRN PRN Reason: PRURITIS Docusate Sodium (Colace Cap*) 100 mg PO BID [facility] Last Admin: 07/24/19 08:30 Dose: Not Given Ferrous Sulfate (Ferrous Sulfate Tab*) 325 mg PO DAILY [facility] Last Admin: 07/24/19 08:21 Dose: 325 mg Folic Acid (Folvite Tab*) 1 mg PO DAILY [facility] Last Admin: 07/24/19 08:20 Dose: 1 mg Cefepime HCl (Maxipime 2 Gm In Dextrose Duplex (*)) 2 gm in 50 mls @ 100 mls/ hr IV Q8H [facility] Last Admin: 07/24/19 05:08 Dose: 100 mls/hr Lactulose (Lactulose*) 30 ml PO BID PRN PRN Reason: CONSTIPATION Last Admin: 07/17/19 16:33 Dose: 30 ml Magnesium Hydroxide (Milk Of Magnesia Liq*) 30 ml PO BID [facility] Last Admin: 07/24/19 08:30 Dose: Not Given Magnesium Hydroxide (Milk Of Magnesia Liq*) 30 ml PO Q6H PRN PRN Reason: CONSTIPATION Metoprolol Tartrate (Lopressor Iv*) 5 mg IV Q6H PRN PRN Reason: TACHYCARDIA Last Admin: 07/22/19 04:10 Dose: 5 mg Metoprolol Tartrate (Lopressor Tab*) 75 mg PO BID [facility] Last Admin: 07/24/19 08:30 Dose: 75 mg Morphine Sulfate (Morphine Inj (Syringe))*) 2 mg IV Q4H PRN PRN Reason: Pain - Unrelieved Last Admin: 07/22/19 03:24 Dose: 2 mg Morphine Sulfate (Ms Contin(*)) 15 mg PO Q12H [facility] Last Admin: 07/23/19 21:55 Dose: 15 mg Multivitamins (Theragran Tab*) 1 tab PO DAILY [facility] Last Admin: 07/24/19 08:31 Dose: 1 tab Ondansetron HCl (Zofran Inj*) 4 mg IV Q6H PRN PRN Reason: NAUSEA Last Admin: 07/20/19 13:20 Dose: 4 mg Ondansetron HCl (Zofran Odt Tab*) 4 mg PO Q6H PRN PRN Reason: NAUSEA Ondansetron HCl (Zofran Tab*) 4 mg PO Q6H PRN PRN Reason: NAUSEA Last Admin: 07/21/19 18:20 Dose: 4 mg Oxycodone HCl (Roxycodone Tab*) 5 mg PO Q4H PRN PRN Reason: PAIN - SEVERE Last Admin: 07/16/19 16:58 Dose: 5 mg Pantoprazole Sodium (Protonix Tab*) 40 mg PO DAILY [facility] Last Admin: 07/24/19 08:21 Dose: 40 mg Pharmacy Profile Note (Scopolamine Patch Remove*) 1 note PATCH OFF Q72H PRN PRN Reason: NAUSEA Polyethylene Glycol/Electrolytes (Miralax (17 Gm Dose Shiraz)) 17 gm PO DAILY PRN PRN Reason: Constipation Last Admin: 07/22/19 15:03 Dose: 17 gm Potassium Chloride (Klor Con Er Tab*) 10 meq PO QAM [facility] Last Admin: 07/24/19 08:20 Dose: 10 meq Propafenone HCl (Rythmol Sr (Nf)) 225 mg PO Q12HR [facility] Last Admin: 07/24/19 08:30 Dose: 225 mg Rivaroxaban (Xarelto(*)) 20 mg PO DAILY WITH MEAL JULIA Last Admin: 07/24/19 08:20 Dose: 20 mg Scopolamine (Transderm-Scop 1.5 Mg Patch*) 1 patch TRANSDERM Q72H PRN PRN Reason: NAUSEA Tramadol HCl (Ultram*) 50 mg PO Q6H PRN PRN Reason: PAIN - MODERATE Last Admin: 07/23/19 03:21 Dose: 50 mg Vital Signs - 8 hr 07/24/19 07/24/19 07/24/19 07:24 08:00 09:29 Temperature 97.5 F Pulse Rate 118 117 Respiratory 18 18 Rate Blood Pressure 107/60 135/81 (mmHg) O2 Sat by Pulse 96 97 Oximetry 07/24/19 07/24/19 07/24/19 10:00 10:07 10:12 Temperature Pulse Rate 128 119 113 Respiratory Rate Blood Pressure 127/94 119/73 (mmHg) O2 Sat by Pulse 100 99 97 Oximetry 07/24/19 07/24/19 07/24/19 10:17 10:22 10:27 Temperature Pulse Rate 115 Respiratory Rate Blood Pressure 113/59 92/74 87/59 (mmHg) O2 Sat by Pulse 94 Oximetry 07/24/19 07/24/19 07/24/19 10:28 10:32 10:37 Temperature Pulse Rate 111 66 65 Respiratory Rate Blood Pressure 104/79 90/61 94/52 (mmHg) O2 Sat by Pulse 91 92 91 Oximetry 07/24/19 07/24/19 07/24/19 10:42 10:47 10:53 Temperature Pulse Rate 61 66 Respiratory Rate Blood Pressure 98/49 99/53 108/81 (mmHg) O2 Sat by Pulse 94 98 Oximetry 07/24/19 07/24/19 07/24/19 10:57 11:02 11:17 Temperature Pulse Rate 66 66 66 Respiratory Rate Blood Pressure 100/57 100/59 101/57 (mmHg) O2 Sat by Pulse 98 95 97 Oximetry Oxygen Devices in Use Now: Nasal Cannula - 1L Appearance: Elderly female sitting up on the commode in NAD Eyes: No Scleral Icterus Ears/Nose/Mouth/Throat: Mucous Membranes Moist Respiratory: Symmetrical Chest Expansion and Respiratory Effort, Clear to Auscultation - mildly decreased breath sounds throughout Cardiovascular: NL Sounds; No Murmurs; No JVD, RRR, - - 1-2+ L LE edema Abdominal: NL Sounds; No Tenderness; No Distention Extremities: No Clubbing, Cyanosis Skin: No Nodules or Sclerosis, - - bruising noted to posterior L calf Neurological: Alert and Oriented x 3 Result Diagrams: 07/23/19 05:49 07/23/19 05:49 Microbiology and Other Data: Microbiology 07/17/19 18:30 Urine Culture - Final Urine No Growth (<1,000 CFU/mL) Assess/Plan/Problems-Billing is a 74yo F with pmhx significant for HTN, AFib, hx breast CA. She had an elective L TKR with on 07/15/19 and was admitted to [facility]. Transferred to [address] [address] for Afib with RVR. - Patient Problems (1) Afib Current Visit: Yes Status: Acute Code(s): I48.91 - UNSPECIFIED ATRIAL FIBRILLATION SNOMED Code(s): 09868310 Comment: Pt is s/p RAYNA guided cardioversion this AM. Continue metoprolol tartrate 75mg BID and propafenone 225mg BID. She is to remain on xarelto 20mg daily. Will monitor on tele overnight and if stable will plan on d/c to [facility] (2) CRP elevated Current Visit: Yes Status: Acute Code(s): R79.82 - ELEVATED C-REACTIVE PROTEIN (CRP) SNOMED Code(s): 204718890839378 Comment: Pt with markedly elevated CRP. No clear signs of infection but CT chest does have mild changes at the R base with small pleural effusion. As pt does not have fever, leukocytosis or cough will not pursue thoracentesis. I think Abx coverage can be de-escalated on discharge. Hematoma of L calf appears to be just a "simple" hematoma. Will send pt out on oral 3rd generation cephalosporin. (3) SOB (shortness of breath) Current Visit: Yes Status: Acute Code(s): R06.02 - SHORTNESS OF BREATH SNOMED Code(s): 437492505 Comment: Mild c/o SOB. Likely secondary to atelectasis but can not rule out pneumonia so as above will continue Abx therapy but de-escalate tomorrow. (4) Anemia due to acute blood loss Current Visit: Yes Status: Acute Code(s): D62 - ACUTE POSTHEMORRHAGIC ANEMIA SNOMED Code(s): 984221573 Comment: Pre op pt with Hb of 12.6. Down to 7.8 POD#1. She received 3 units PRBC and was tx with IV iron 3/, 3. H/H now stable. (5) Status post total left knee replacement Current Visit: Yes Status: Acute Code(s): Z96.652 - PRESENCE OF LEFT ARTIFICIAL KNEE JOINT SNOMED Code(s): 9205142683021 Comment: Management per orthopedics. She is constipated. Continue bowel regimen. (6) Hypertension Current Visit: Yes Status: Acute Code(s): I10 - ESSENTIAL (PRIMARY) HYPERTENSION SNOMED Code(s): 15519658 Comment: BP is low normal on metoprolol tartrate 75mg BID. She is off her lisinopril. (7) DVT prophylaxis Current Visit: Yes Status: Acute Code(s): Z29.9 - ENCOUNTER FOR PROPHYLACTIC MEASURES, UNSPECIFIED SNOMED Code(s): 087495566 Comment: miroslava (8) Full code status Current Visit: Yes Status: Acute Code(s): Z78.9 - OTHER SPECIFIED HEALTH STATUS SNOMED Code(s): 521903459 Status and Disposition: probable d/c to [facility] tomorrow
--- NOTE | 2019-07-24 12:26 | CARD ---
CC: Dr. King; Hospitalist Service; Dr. Cotton TRANSESOPHAGEAL ECHOCARDIOGRAPHY GUIDED CARDIOVERSION: DATE OF PROCEDURE: 07/24/19 HISTORY OF PRESENT ILLNESS: The patient is a 74-year-old female patient with known history of paroxy smal atrial fibrillation, maintained on anticoagulation in the form of Xarelto 20 mg once a day for m any years and p.r.n. propafenone. She recently was admitted to [facility] for total left knee replacement. After the surgery, the patient was found to be in symptomatic rapid atrial fibrillation. A transeso phageal echocardiography-guided cardioversion was further requested. DESCRIPTION OF PROCEDURE: After informed written consent had been obtained and with continuous blood pressure, pulse oximetry, and heart rate monitoring, initially I performed a transesophageal echocar diography. Please refer to the full separate report, but in summary, it did not demonstrate any obvi ous clots in the left atrium or in the left atrial appendage. The patient received a total dose of V ersed 8 mg intravenously and 50 mcg of fentanyl intravenously. Based on the findings of the transeso phageal echocardiography, I proceeded for direct current cardioversion. Synchronized 150 Joules were delivered once and successfully converted the patient to normal sinus rhythm. There were no complic ations and the patient tolerated the procedure very well, and immediate EKG confirmed the patient to be in normal sinus rhythm with heart rate 65 beats per minute. CONCLUSION: Successful transesophageal echocardiography-guided direct current cardioversion for atri al fibrillation. The patient is in normal sinus rhythm. There were no complications. The patient to lerated the procedure very well. An immediate EKG after the cardioversion obtained. [id number]/[facility] #: [id number]
--- NOTE | 2019-07-24 19:33 | PN ---
Progress Note - Progress Note Date of Service: 07/24/19 SOAP: Subjective: []Pt seen at bedside after cardioversion, in NSR feeling well though some confusion per nurse. Denies CP, SOB, dizziness, nausea. Objective: []gen: NAD, nontoxic appearing LLE: Dressing changed, incision CDI with ecchymosis surrounding incision no erythema. thigh soft, df/pf intact, dp2+, sensation intact to light touch distally. Left Calf without erythema. + mild induration though compressible and nontender. R calf supple and nontender Assessment: []s/p left TKA; POD#7 A fib Pleural effusion Calf hematoma without concern for infection Plan: PT/OT- WBAT Daily dry dressing change gauze and michaelle wrap Continue with pain medication, may cont MS contin 15mg bid as needed A fib: CV today in NSR anticipate safe to dc tomorrow as long as NSR maintained Ready for DC from ortho standpoint, medicine to DC when ready Vital Signs Temp 97.9 F 07/24/19 19:15 Pulse 71 07/24/19 19:15 Resp 20 07/24/19 19:15 BP 97/71 07/24/19 19:15 Pulse Ox 97 07/24/19 19:15 Intake & Output 07/24/19 07/24/19 07/25/19 06:59 18:59 06:59 Intake Total 0 570 Balance 0 570 Intake: IV Fluids 450 Oral 0 120 Other: Estimated Void Medium # Bowel Movements 1 Estimated Stool Amount Large # Voids 4 Laboratory Last Values WBC 8.1 10^3/uL (3.5-10.8) 07/23/19 05:49 RBC 2.91 10^6 /uL (3.70-4.87) L 07/23/19 05:49 Hgb 8.8 g/dL (12.0-16.0) L 07/23/19 05:49 Hct 26 % (35-47) L 07/23/19 05:49 MCV 88 fL (80-97) 07/23/19 05:49 MCH 30 pg (27-31) 07/23/19 05:49 MCHC 34 g/dL (31-36) 07/23/19 05:49 RDW 17 % (10-15) H 07/23/19 05:49 Plt Count 266 10^3/uL (150-450) 07/23/19 05:49 MPV 7.7 fL (7.4-10.4) 07/23/19 05:49 Neut % (Auto) 72.0 % 07/23/19 05:49 Lymph % (Auto) 10.5 % 07/23/19 05:49 Rankin % (Auto) 12.9 % 07/23/19 05:49 Eos % (Auto) 3.7 % 07/23/19 05:49 Baso % (Auto) 0.9 % 07/23/19 05:49 Absolute Neuts (auto) 5.8 10^3/ul (1.5-7.7) 07/23/19 05:49 Absolute Lymphs (auto) 0.9 10^3/ul (1.0-4.8) L 07/23/19 05:49 Absolute Monos (auto) 1.0 10^3/ul (0-0.8) H 07/23/19 05:49 Absolute Eos (auto) 0.3 10^3/ul (0-0.6) 07/23/19 05:49 Absolute Basos (auto) 0.1 10^3/ul (0-0.2) 07/23/19 05:49 Absolute Nucleated RBC 0.0 10^3/ul 07/23/19 05:49 Nucleated RBC % 0.0 07/23/19 05:49 INR (Anticoag Therapy) 1.09 (0.82-1.09) 07/15/19 11:07 Sodium 134 mmol/L (135-145) L 07/23/19 05:49 Potassium 4.4 mmol/L (3.5-5.0) 07/23/19 05:49 Chloride 100 mmol/L (101-111) L 07/23/19 05:49 Carbon Dioxide 29 mmol/L (22-32) 07/23/19 05:49 Anion Gap 5 mmol/L (2-11) 07/23/19 05:49 BUN 15 mg/dL (6-24) 07/23/19 05:49 Creatinine 0.79 mg/dL (0.51-0.95) 07/23/19 05:49 Est GFR ( Amer) 85.6 (>60) 07/23/19 05:49 Est GFR (Non-Af Amer) 70.8 (>60) 07/23/19 05:49 BUN/Creatinine Ratio 19.0 (8-20) 07/23/19 05:49 Glucose 113 mg/dL (70-100) H 07/23/19 05:49 Calcium 8.4 mg/dL (8.6-10.3) L 07/23/19 05:49 Magnesium 2.1 mg/dL (1.9-2.7) 07/21/19 07:01 Total Creatine Kinase 74 U/L (10-223) 07/23/19 05:49 Troponin I 0.01 ng/mL (<0.03) 07/22/19 09:09 C-Reactive Protein 230.88 mg/L (<8.01) H 07/23/19 05:49 Urine Color Yellow 07/17/19 18:30 Urine Appearance Clear 07/17/19 18:30 Urine pH 6.0 (5-9) 07/17/19 18:30 Ur Specific [place] 1.006 (1.010-1.030) L 07/17/19 18:30 Urine Protein Negative (Negative) 07/17/19 18:30 Urine Ketones Negative (Negative) 07/17/19 18:30 Urine Blood 1+ (Negative) A 07/17/19 18:30 Urine Nitrate Negative (Negative) 07/17/19 18:30 Urine Bilirubin Negative (Negative) 07/17/19 18:30 Urine Urobilinogen Negative (Negative) 07/17/19 18:30 Ur Leukocyte Esterase 1+ (Negative) A 07/17/19 18:30 Urine WBC (Auto) 1+(6-10/hpf) (Absent) A 07/17/19 18:30 Urine RBC (Auto) Trace(0-2/hpf) (Absent) 07/17/19 18:30 Ur Squamous Epith Cells Present (Absent) A 07/17/19 18:30 Urine Bacteria Absent (Absent) 07/17/19 18:30 Urine Glucose Negative (Negative) 07/17/19 18:30 Blood Type O Positive 07/22/19 03:53 Antibody Screen Negative 07/22/19 03:53 Crossmatch See Detail 07/22/19 03:53
[2019-07-24] MEDS: traMADol TAB* 50 MG PO PRN (20:03)
[2019-07-25] MEDS: oxyCODONE TAB* 5 MG TAB PO PRN ×3 (02:50→23:16)
[2019-07-25] MEDS: Cefepime 2 GM in Dextrose(*) 2 GM/50 ML BAG IV SCH ×3 (05:21→21:01)
[2019-07-25] MEDS: Magnesium Hydroxide LIQ* 30 ML UDC PO SCH ×2 (07:31→20:59)
[2019-07-25] MEDS: Pantoprazole TAB * 40 MG TAB PO SCH (09:09)
[2019-07-25] MEDS: Docusate CAP* 100 MG PO SCH ×2 (09:09→21:58)
[2019-07-25] MEDS: Vitamin THERAPEUTIC TAB PO SCH (09:09)
[2019-07-25] MEDS: Rivaroxaban TAB(*) 20 MG TAB PO SCH (09:09)
[2019-07-25] MEDS: Potassium Chlor TAB* 10 MEQ TAB.ER PO SCH (09:09)
[2019-07-25] MEDS: Cyanocobalamin TAB* 500 MCG PO SCH (09:10)
[2019-07-25] MEDS: Metoprolol Tartrate TAB* 25 MG PO SCH ×2 (09:10→20:58)
[2019-07-25] MEDS: Ferrous Sulfate TAB* 325 MG PO SCH (09:10)
[2019-07-25] MEDS: Folic Acid TAB* 1 MG PO SCH (09:10)
[2019-07-25] MEDS: Calcium Carbonate CHEW TAB* 500 MG (TUMS) PO SCH ×3 (09:10→20:59)
[2019-07-25] MEDS: Atorvastatin* 10 MG TAB PO SCH (09:10)
[2019-07-25] MEDS: PROPAFENONE 225 MG PO SCH ×2 (09:10→20:58)
[2019-07-25] MEDS: traMADol TAB* 50 MG PO PRN (09:10)
[2019-07-25] MEDS: Morphine TAB Extended Release (*) 15 MG TAB.ER PO SCH ×2 (12:17→21:00)
--- NOTE | 2019-07-25 14:05 | PN ---
Progress Note - Progress Note Date of Service: 07/25/19 SOAP: Subjective: Pt seen at bedside feeling well. Denies CP, SOB, dizziness, nausea. Objective: []gen: NAD, nontoxic appearing LLE: Dressing is CDI. thigh soft, df/pf intact, dp2+, sensation intact to light touch distally. Left Calf without erythema. + mild induration though compressible and nontender. R calf supple and nontender Vital Signs Temp 97.0 F 07/25/19 11:38 Pulse 71 07/25/19 11:38 Resp 16 07/25/19 12:17 BP 111/48 07/25/19 11:38 Pulse Ox 95 07/25/19 11:38 Intake & Output 07/24/19 07/25/19 07/25/19 18:59 06:59 18:59 Intake Total 570 320 360 Balance 570 320 360 Intake: IV Fluids 450 Oral 120 320 360 Other: Estimated Void Medium Medium Date of Last Bowel 07/24/2019 Movement # Bowel Movements 1 1 Estimated Stool Amount Large # Voids 4 2 2 Assessment: []s/p left TKA; POD#8 A fib Pleural effusion Calf hematoma without concern for infection Plan: PT/OT- WBAT Daily dry dressing change gauze and michaelle wrap Continue with pain medication, may cont MS contin 15mg bid as needed A fib: Hospitalists would like to keep her over the weekend to monitor. Ready for DC from ortho standpoint, medicine to DC when ready
--- NOTE | 2019-07-25 16:26 | PN ---
Subjective Date of Service: 07/25/19 Interval History: - Patient seen today, she appears significantly better as compared to my assessment from Sunday. Her pain is controlled. Appreciate coverage yesterday by my colleague hospitalist. Appreciate input from ortho. - Available study reviewed. US of soft tissue negative for fluid collections no labs since 07/23/19 - She is on cefepmie 2 gm IV Q8hrs. Clinically has responded well. I am hesitant on discontinuing her Antibiotics prematurelly. I explained to patient I would like to repeat her labs to ensure her H/H stable, ESR and CRP to ensure downward trending. pending her result in am will determined if medically will be cleared as well for STR. - She has been cleared from ortho. She is complaining of fatigue but no chest pain and no shortness of breath. S/ p cardioversion currently in sinus rhythm Family History: Unchanged from Admission Social History: Unchanged from Admission Past Medical History: Unchanged from Admission Objective Active Medications: Atorvastatin Calcium (Lipitor*) 10 mg PO QAM [facility] Last Admin: 07/25/19 09:10 Dose: 10 mg Bisacodyl (Dulcolax Supp*) 10 mg [place] DAILY PRN PRN Reason: CONSTIPATION Last Admin: 07/24/19 16:45 Dose: 10 mg Calcium Carbonate (Tums*) 500 mg PO TID [facility] Last Admin: 07/25/19 12:17 Dose: 500 mg Cyanocobalamin (Vitamin B12 Tab*) 1,000 mcg PO DAILY [facility] Last Admin: 07/25/19 09:10 Dose: 1,000 mcg Cyclobenzaprine HCl (Flexeril Tab*) 10 mg PO Q6H PRN PRN Reason: SPASMS Last Admin: 07/21/19 14:41 Dose: 10 mg Diphenhydramine HCl (Benadryl Iv*) 25 mg IV Q6H PRN PRN Reason: PRURITIS Diphenhydramine HCl (Benadryl Po*) 25 mg PO Q6H PRN PRN Reason: PRURITIS Docusate Sodium (Colace Cap*) 100 mg PO BID [facility] Last Admin: 07/25/19 09:09 Dose: 100 mg Ferrous Sulfate (Ferrous Sulfate Tab*) 325 mg PO DAILY [facility] Last Admin: 07/25/19 09:10 Dose: 325 mg Folic Acid (Folvite Tab*) 1 mg PO DAILY [facility] Last Admin: 07/25/19 09:10 Dose: 1 mg Cefepime HCl (Maxipime 2 Gm In Dextrose Duplex (*)) 2 gm in 50 mls @ 100 mls/ hr IV Q8H [facility] Last Admin: 07/25/19 12:17 Dose: 100 mls/hr Lactulose (Lactulose*) 30 ml PO BID PRN PRN Reason: CONSTIPATION Last Admin: 07/17/19 16:33 Dose: 30 ml Magnesium Hydroxide (Milk Of Magnesia Liq*) 30 ml PO BID [facility] Last Admin: 07/25/19 07:31 Dose: Not Given Magnesium Hydroxide (Milk Of Magnesia Liq*) 30 ml PO Q6H PRN PRN Reason: CONSTIPATION Metoprolol Tartrate (Lopressor Iv*) 5 mg IV Q6H PRN PRN Reason: TACHYCARDIA Last Admin: 07/22/19 04:10 Dose: 5 mg Metoprolol Tartrate (Lopressor Tab*) 75 mg PO BID [facility] Last Admin: 07/25/19 09:10 Dose: 75 mg Morphine Sulfate (Morphine Inj (Syringe))*) 2 mg IV Q4H PRN PRN Reason: Pain - Unrelieved Last Admin: 07/22/19 03:24 Dose: 2 mg Morphine Sulfate (Ms Contin(*)) 15 mg PO Q12H [facility] Last Admin: 07/25/19 12:17 Dose: 15 mg Multivitamins (Theragran Tab*) 1 tab PO DAILY [facility] Last Admin: 07/25/19 09:09 Dose: 1 tab Ondansetron HCl (Zofran Inj*) 4 mg IV Q6H PRN PRN Reason: NAUSEA Last Admin: 07/20/19 13:20 Dose: 4 mg Ondansetron HCl (Zofran Odt Tab*) 4 mg PO Q6H PRN PRN Reason: NAUSEA Ondansetron HCl (Zofran Tab*) 4 mg PO Q6H PRN PRN Reason: NAUSEA Last Admin: 07/21/19 18:20 Dose: 4 mg Oxycodone HCl (Roxycodone Tab*) 5 mg PO Q4H PRN PRN Reason: PAIN - SEVERE Last Admin: 07/25/19 10:09 Dose: 5 mg Pantoprazole Sodium (Protonix Tab*) 40 mg PO DAILY [facility] Last Admin: 07/25/19 09:09 Dose: 40 mg Pharmacy Profile Note (Scopolamine Patch Remove*) 1 note PATCH OFF Q72H PRN PRN Reason: NAUSEA Polyethylene Glycol/Electrolytes (Miralax (17 Gm Dose Shiraz)) 17 gm PO DAILY PRN PRN Reason: Constipation Last Admin: 07/22/19 15:03 Dose: 17 gm Potassium Chloride (Klor Con Er Tab*) 10 meq PO QAM [facility] Last Admin: 07/25/19 09:09 Dose: 10 meq Propafenone HCl (Rythmol Sr (Nf)) 225 mg PO Q12HR [facility] Last Admin: 07/25/19 09:10 Dose: 225 mg Rivaroxaban (Xarelto(*)) 20 mg PO DAILY WITH MEAL [facility] Last Admin: 07/25/19 09:09 Dose: 20 mg Scopolamine (Transderm-Scop 1.5 Mg Patch*) 1 patch TRANSDERM Q72H PRN PRN Reason: NAUSEA Tramadol HCl (Ultram*) 50 mg PO Q6H PRN PRN Reason: PAIN - MODERATE Last Admin: 07/25/19 09:10 Dose: 50 mg Vital Signs - 8 hr 07/25/19 07/25/19 07/25/19 09:10 10:09 11:38 Temperature 97.0 F Pulse Rate 71 Respiratory 16 16 18 Rate Blood Pressure 111/48 (mmHg) O2 Sat by Pulse 95 Oximetry 07/25/19 07/25/19 07/25/19 12:17 14:27 16:00 Temperature 97.7 F Pulse Rate 62 Respiratory 16 16 18 Rate Blood Pressure 110/52 (mmHg) O2 Sat by Pulse 95 Oximetry Oxygen Devices in Use Now: None Appearance: awake, pallor Eyes: No Scleral Icterus, - - EOMI Ears/Nose/Mouth/Throat: NL Teeth, Lips, Gums, Mucous Membranes Moist Neck: NL Appearance and Movements; NL JVP, Trachea Midline Respiratory: Symmetrical Chest Expansion and Respiratory Effort, - - poor air floow at bases. crakcle clears with coughing Cardiovascular: NL Sounds; No Murmurs; No JVD, RRR Abdominal: NL Sounds; No Tenderness; No Distention Extremities: - - LLE hematoma. minimally tender not warm Result Diagrams: 07/23/19 05:49 07/23/19 05:49 Microbiology and Other Data: Microbiology 07/17/19 18:30 Urine Culture - Final Urine No Growth (<1,000 CFU/mL) Assess/Plan/Problems-Billing is a 74yo F with pmhx significant for HTN, AFib, hx breast CA. She had an elective L TKR with on 07/15/19 and was admitted to [facility]. Transferred to [address] [place] [address] for Afib with RVR. - Patient Problems (1) Anemia Current Visit: Yes Status: Acute Code(s): D64.9 - ANEMIA, UNSPECIFIED SNOMED Code(s): 909324712 Comment: - Fairly acute post op from 07/04/19 pre op (37) post op 24 - remained anemic despite 3 units pRBC total - I believe it is mixed as expected some post op loss and majority is due to her LLE hematoma. - last H/H stable up to 26 from 24 hct on 07/23/19, will order repeat for am, meanwhile continue her on Iron supplementation, B12, folic and MVI - continue PPI for GI prophylaxsis (on anticoagulation) (2) Anemia due to acute blood loss Current Visit: Yes Status: Acute Code(s): D62 - ACUTE POSTHEMORRHAGIC ANEMIA SNOMED Code(s): 856589331 Comment: - s/p tx with IV iron 07/19, 07/21/19, s/p 3 u pRBC (07/15 ; 07/18 and one on 07/21) - pt developed left calf hematoma over her post op course. - stool hemoccult neg (3) CRP elevated Current Visit: Yes Status: Acute Code(s): R79.82 - ELEVATED C-REACTIVE PROTEIN (CRP) SNOMED Code(s): 000683027058654 Comment: - marked elevation CRP, ? infeciton or simply post operatively. - no obvious source of infection, However can not rule out pneumonaie with simple parapneumonic loculated effusion. (I called and I spoke to the radiologist plastic extrusion operator for the overnight read (07.23.19) and based on the fluid characteristic he did not think it was complicated pleural effusion rather simple fluid). - Of course gold standard is throacocentesis. But this will require hold xaretlo and IR guided due to the small area. - I did esclate her antibiotic to cover nosocomial (d/c rocephin day # 2 and start cefepime 07/23/19) I will continue and repeat ESR, CRP tomorrow along with CBC - US of hematoma did not show abscess formations (4) History of atrial fibrillation Current Visit: Yes Status: Acute Code(s): Z86.79 - PERSONAL HISTORY OF OTHER DISEASES OF THE CIRCULATORY SYSTEM SNOMED Code(s): 017415998 Comment: - A. fib with RVR on 07/21/19, transfered to telem. - cont PO Propafenone 225 mg BID started 07/20 - S/p cardiac cardioversion now in sinus. (5) Hypertension Current Visit: Yes Status: Acute Code(s): I10 - ESSENTIAL (PRIMARY) HYPERTENSION SNOMED Code(s): 65311391 Comment: on metoprolol tartrate 75mg BID. She is off her lisinopril. (6) Hypomagnesemia Current Visit: Yes Status: Acute Code(s): E83.42 - HYPOMAGNESEMIA SNOMED Code(s): 620882439 Comment: - monitored daily given her Afib, ordered for am (7) Status post total left knee replacement Current Visit: Yes Status: Acute Code(s): Z96.652 - PRESENCE OF LEFT ARTIFICIAL KNEE JOINT SNOMED Code(s): 8187666428947 Comment: Management per orthopedics. She is constipated. Continue bowel regimen. (8) DVT prophylaxis Current Visit: Yes Status: Acute Code(s): Z29.9 - ENCOUNTER FOR PROPHYLACTIC MEASURES, UNSPECIFIED SNOMED Code(s): 849829671 Comment: miroslava Status and Disposition: probable d/c to [facility] tomorrow
[2019-07-26] MEDS: Cefepime 2 GM in Dextrose(*) 2 GM/50 ML BAG IV SCH ×3 (05:19→21:30)
[2019-07-26 06:16] LABS: ABS Basophils 0.1 10^3/ul (0-0.2); ABS Eosinophils 0.2 10^3/ul (0-0.6); ABS Lymphocytes 1.1 10^3/ul (1.0-4.8); ABS Monocytes 0.6 10^3/ul (0-0.8); ABS Neutrophils 4.9 10^3/ul (1.5-7.7); Eosinophil % 3.4 %; Hematocrit 27 % (35-47); Hemoglobin 9.2 g/dL (12.0-16.0); Lymphocyte % 16.1 %; Mean Corpuscular HGB Conc 34 g/dL (31-36); Mean Corpuscular Hemoglobin 30 pg (27-31); Mean Corpuscular Volume 89 fL (80-97); Mean Platelet Volume 7.5 fL (7.4-10.4); Platelet Count 334 10^3/uL (150-450); Red Blood Count 3.06 10^6 /uL (3.70-4.87); Red Cell Distribution Width 17 % (10-15)
[2019-07-26 06:33] LABS: C Reactive Protein 127.94 mg/L (<8.01); Calcium 8.7 mg/dL (8.6-10.3); EGFR African American 85.6 (>60); EGFR Non-African American 70.8 (>60); Magnesium 2.1 mg/dL (1.9-2.7); Phosphorus 3.2 mg/dL (2.5-5.0); Potassium 4.2 mmol/L (3.5-5.0)
[2019-07-26] MEDS: traMADol TAB* 50 MG PO PRN (07:03)
[2019-07-26 07:50] LABS: Erythrocyte Sed Rate 89 mm/Hr (0-29)
[2019-07-26] MEDS: oxyCODONE TAB* 5 MG TAB PO PRN ×3 (09:38→19:54)
[2019-07-26] MEDS: Magnesium Hydroxide LIQ* 30 ML UDC PO SCH ×2 (09:39→19:55)
[2019-07-26] MEDS: Vitamin THERAPEUTIC TAB PO SCH (09:44)
[2019-07-26] MEDS: Cyanocobalamin TAB* 500 MCG PO SCH (09:44)
[2019-07-26] MEDS: Pantoprazole TAB * 40 MG TAB PO SCH (09:44)
[2019-07-26] MEDS: Potassium Chlor TAB* 10 MEQ TAB.ER PO SCH (09:44)
[2019-07-26] MEDS: Metoprolol Tartrate TAB* 25 MG PO SCH ×2 (09:44→19:55)
[2019-07-26] MEDS: Ferrous Sulfate TAB* 325 MG PO SCH (09:45)
[2019-07-26] MEDS: Calcium Carbonate CHEW TAB* 500 MG (TUMS) PO SCH ×3 (09:45→19:55)
[2019-07-26] MEDS: Atorvastatin* 10 MG TAB PO SCH (09:45)
[2019-07-26] MEDS: Folic Acid TAB* 1 MG PO SCH (09:45)
[2019-07-26] MEDS: Docusate CAP* 100 MG PO SCH ×2 (09:45→19:55)
[2019-07-26] MEDS: Rivaroxaban TAB(*) 20 MG TAB PO SCH (09:45)
--- NOTE | 2019-07-26 10:17 | PN ---
Progress Note - Progress Note Date of Service: 07/26/19 SOAP: Subjective: Pt. is feeling better, no cp/sob. Knee with moderate pain. Objective: Vital Signs: Temp Pulse Resp BP Pulse Ox 98.0 F 66 16 121/56 98 07/26/19 03:15 07/26/19 03:15 07/26/19 09:38 07/26/19 03:15 07/26/19 03:15 Laboratory Results - last 24 hr 07/26/19 07/26/19 05:55 05:55 WBC 7.0 RBC 3.06 L Hgb 9.2 L Hct 27 L MCV 89 MCH 30 MCHC 34 RDW 17 H Plt Count 334 MPV 7.5 Neut % (Auto) 70.5 Lymph % (Auto) 16.1 [place] % (Auto) 9.2 Eos % (Auto) 3.4 Baso % (Auto) 0.8 Absolute Neuts (auto) 4.9 Absolute Lymphs (auto) 1.1 Absolute Monos (auto) 0.6 Absolute Eos (auto) 0.2 Absolute Basos (auto) 0.1 Absolute Nucleated RBC 0.0 Nucleated RBC % 0.0 ESR 89 H Sodium 135 Potassium 4.2 Chloride 103 Carbon Dioxide 26 Anion Gap 6 BUN 15 Creatinine 0.79 Est GFR ( Amer) 85.6 Est GFR (Non-Af Amer) 70.8 BUN/Creatinine Ratio 19.0 Glucose 116 H Calcium 8.7 Phosphorus 3.2 Magnesium 2.1 C-Reactive Protein 127.94 H LLE - incision healing well with a hematoma. calf swollen but soft. distally nvi. Assessment: 74 yo F s/p LTKA with postop afib requiring cardioablation. Plan: HR normal. CRP decreasing, wbc normal\ cont PT/OT - wbat eliquis full dose plan d/c to [facility] on sunday - follow up in ortho clinic 7-10 days
[2019-07-26] MEDS: Morphine TAB Extended Release (*) 15 MG TAB.ER PO SCH ×2 (11:11→22:37)
[2019-07-26] MEDS: PROPAFENONE 225 MG PO SCH ×2 (11:12→19:55)
--- NOTE | 2019-07-26 17:00 | PN ---
Subjective Date of Service: 07/26/19 Interval History: patient doing better. no acute complains. had some nausea today. no vomit. Last BM 07/24/19. CXR reviewed atelectasis, right hemidiaphragm elevations Past Medical History: Unchanged from Admission Objective Active Medications: Atorvastatin Calcium (Lipitor*) 10 mg PO QAM [facility] Last Admin: 07/26/19 09:45 Dose: 10 mg Bisacodyl (Dulcolax Supp*) 10 mg HI DAILY PRN PRN Reason: CONSTIPATION Last Admin: 07/24/19 16:45 Dose: 10 mg Calcium Carbonate (Tums*) 500 mg PO TID [facility] Last Admin: 07/26/19 14:13 Dose: 500 mg Cyanocobalamin (Vitamin B12 Tab*) 1,000 mcg PO DAILY [facility] Last Admin: 07/26/19 09:44 Dose: 1,000 mcg Cyclobenzaprine HCl (Flexeril Tab*) 10 mg PO Q6H PRN PRN Reason: SPASMS Last Admin: 07/21/19 14:41 Dose: 10 mg Diphenhydramine HCl (Benadryl Iv*) 25 mg IV Q6H PRN PRN Reason: PRURITIS Diphenhydramine HCl (Benadryl Po*) 25 mg PO Q6H PRN PRN Reason: PRURITIS Docusate Sodium (Colace Cap*) 100 mg PO BID [facility] Last Admin: 07/26/19 09:45 Dose: 100 mg Ferrous Sulfate (Ferrous Sulfate Tab*) 325 mg PO DAILY [facility] Last Admin: 07/26/19 09:45 Dose: 325 mg Folic Acid (Folvite Tab*) 1 mg PO DAILY [facility] Last Admin: 07/26/19 09:45 Dose: 1 mg Cefepime HCl (Maxipime 2 Gm In Dextrose Duplex (*)) 2 gm in 50 mls @ 100 mls/ hr IV Q8H [facility] Last Admin: 07/26/19 14:15 Dose: 100 mls/hr Lactulose (Lactulose*) 30 ml PO BID PRN PRN Reason: CONSTIPATION Last Admin: 07/17/19 16:33 Dose: 30 ml Magnesium Hydroxide (Milk Of Magnesia Liq*) 30 ml PO BID [facility] Last Admin: 07/26/19 09:39 Dose: Not Given Magnesium Hydroxide (Milk Of Magnesia Liq*) 30 ml PO Q6H PRN PRN Reason: CONSTIPATION Metoprolol Tartrate (Lopressor Iv*) 5 mg IV Q6H PRN PRN Reason: TACHYCARDIA Last Admin: 07/22/19 04:10 Dose: 5 mg Metoprolol Tartrate (Lopressor Tab*) 75 mg PO BID [facility] Last Admin: 07/26/19 09:44 Dose: 75 mg Morphine Sulfate (Ms Contin(*)) 15 mg PO Q12H [facility] Last Admin: 07/26/19 11:11 Dose: 15 mg Multivitamins (Theragran Tab*) 1 tab PO DAILY [facility] Last Admin: 07/26/19 09:44 Dose: 1 tab Ondansetron HCl (Zofran Inj*) 4 mg IV Q6H PRN PRN Reason: NAUSEA Last Admin: 07/20/19 13:20 Dose: 4 mg Ondansetron HCl (Zofran Odt Tab*) 4 mg PO Q6H PRN PRN Reason: NAUSEA Ondansetron HCl (Zofran Tab*) 4 mg PO Q6H PRN PRN Reason: NAUSEA Last Admin: 07/21/19 18:20 Dose: 4 mg Oxycodone HCl (Roxycodone Tab*) 5 mg PO Q4H PRN PRN Reason: PAIN - SEVERE Last Admin: 07/26/19 14:13 Dose: 5 mg Pantoprazole Sodium (Protonix Tab*) 40 mg PO DAILY [facility] Last Admin: 07/26/19 09:44 Dose: 40 mg Pharmacy Profile Note (Scopolamine Patch Remove*) 1 note PATCH OFF Q72H PRN PRN Reason: NAUSEA Polyethylene Glycol/Electrolytes (Miralax (17 Gm Dose Shiraz)) 17 gm PO DAILY [facility] Potassium Chloride (Klor Con Er Tab*) 10 meq PO QAM [facility] Last Admin: 07/26/19 09:44 Dose: 10 meq Propafenone HCl (Rythmol Sr (Nf)) 225 mg PO Q12HR [facility] Last Admin: 07/26/19 11:12 Dose: 225 mg Rivaroxaban (Xarelto(*)) 20 mg PO DAILY WITH MEAL [facility] Last Admin: 07/26/19 09:45 Dose: 20 mg Scopolamine (Transderm-Scop 1.5 Mg Patch*) 1 patch TRANSDERM Q72H PRN PRN Reason: NAUSEA Tramadol HCl (Ultram*) 50 mg PO Q6H PRN PRN Reason: PAIN - MODERATE Last Admin: 07/26/19 07:03 Dose: 50 mg Vital Signs - 8 hr 07/26/19 07/26/19 07/26/19 09:38 11:11 11:15 Temperature 97.3 F Pulse Rate 70 Respiratory 16 14 16 Rate Blood Pressure 103/49 (mmHg) O2 Sat by Pulse 99 Oximetry 07/26/19 07/26/19 07/26/19 12:23 14:13 15:15 Temperature 98.2 F Pulse Rate 69 Respiratory 14 16 16 Rate Blood Pressure 115/51 (mmHg) O2 Sat by Pulse 99 Oximetry 07/26/19 16:00 Temperature Pulse Rate Respiratory Rate Blood Pressure (mmHg) O2 Sat by Pulse 99 Oximetry Oxygen Devices in Use Now: None Appearance: awake, alert no distress Eyes: No Scleral Icterus, - - EOMI Ears/Nose/Mouth/Throat: NL Teeth, Lips, Gums, Mucous Membranes Moist Neck: NL Appearance and Movements; NL JVP, Trachea Midline Respiratory: Symmetrical Chest Expansion and Respiratory Effort, Clear to Auscultation Cardiovascular: NL Sounds; No Murmurs; No JVD Abdominal: NL Sounds; No Tenderness; No Distention Extremities: - - LLE edema. no warmth Neurological: Alert and Oriented x 3 Result Diagrams: 07/26/19 05:55 07/26/19 05:55 Microbiology and Other Data: Microbiology 07/17/19 18:30 Urine Culture - Final Urine No Growth (<1,000 CFU/mL) Assess/Plan/Problems-Billing is a 74yo F with pmhx significant for HTN, AFib, hx breast CA. She had an elective L TKR with on 07/15/19 and was admitted to [facility]. Transferred to [address] [place] [address] for Afib with RVR. - Patient Problems (1) Anemia Current Visit: Yes Status: Acute Code(s): D64.9 - ANEMIA, UNSPECIFIED SNOMED Code(s): 347024188 Comment: - Fairly acute post op from 07/04/19 pre op (37) post op 24 - remained anemic despite 3 units pRBC total - I believe it was mixed as expected some post op loss and majority is due to her LLE hematoma. - last H/H stable up to 27 today 07/26/19 from 24 hct on 07/23/19, - continue her on Iron supplementation, B12, folic and MVI - continue PPI for GI prophylaxsis (on anticoagulation) (2) Anemia due to acute blood loss Current Visit: Yes Status: Acute Code(s): D62 - ACUTE POSTHEMORRHAGIC ANEMIA SNOMED Code(s): 723756058 Comment: - s/p tx with IV iron 07/19, 07/21/19, s/p 3 u pRBC (07/15 ; 07/18 and one on 07/21) - pt developed left calf hematoma over her post op course. - stool hemoccult neg (3) CRP elevated Current Visit: Yes Status: Acute Code(s): R79.82 - ELEVATED C-REACTIVE PROTEIN (CRP) SNOMED Code(s): 240599814456411 Comment: - marked elevation CRP, ? infeciton or simply post operatively. - no obvious source of infection, However can not rule out pneumonaie with simple parapneumonic loculated effusion. (I called and I spoke to the radiologist promotions executive producer for the overnight read (07.23.19) and based on the fluid characteristic he did not think it was complicated pleural effusion rather simple fluid). - Of course gold standard is throacocentesis. But this will require hold xaretlo and IR guided due to the small area. - I did esclate her antibiotic to cover nosocomial (d/c rocephin day # 2 and start cefepime 07/23/19 # 4) - Her CRP trending downward. - US of hematoma did not show abscess formations (4) History of atrial fibrillation Current Visit: Yes Status: Acute Code(s): Z86.79 - PERSONAL HISTORY OF OTHER DISEASES OF THE CIRCULATORY SYSTEM SNOMED Code(s): 225970344 Comment: - A. fib with RVR on 07/21/19, transfered to telem. - cont PO Propafenone 225 mg BID started 07/20 - S/p cardiac cardioversion now in sinus. (5) Hypertension Current Visit: Yes Status: Acute Code(s): I10 - ESSENTIAL (PRIMARY) HYPERTENSION SNOMED Code(s): 90798574 Comment: on metoprolol tartrate 75mg BID. She is off her lisinopril. (6) Hypomagnesemia Current Visit: Yes Status: Acute Code(s): E83.42 - HYPOMAGNESEMIA SNOMED Code(s): 612372164 Comment: - monitored daily given her Afib, ordered for am (7) Status post total left knee replacement Current Visit: Yes Status: Acute Code(s): Z96.652 - PRESENCE OF LEFT ARTIFICIAL KNEE JOINT SNOMED Code(s): 6609849649348 Comment: Management per orthopedics. She is constipated. Continue bowel regimen. (8) DVT prophylaxis Current Visit: Yes Status: Acute Code(s): Z29.9 - ENCOUNTER FOR PROPHYLACTIC MEASURES, UNSPECIFIED SNOMED Code(s): 191629925 Comment: miroslava Status and Disposition: probable d/c to [facility] tomorrow
[2019-07-27] MEDS: oxyCODONE TAB* 5 MG TAB PO PRN ×4 (03:29→21:03)
[2019-07-27] MEDS: Cefepime 2 GM in Dextrose(*) 2 GM/50 ML BAG IV SCH ×3 (05:40→21:07)
[2019-07-27] MEDS: Docusate CAP* 100 MG PO SCH ×2 (09:06→21:03)
[2019-07-27] MEDS: Metoprolol Tartrate TAB* 25 MG PO SCH ×2 (09:06→21:03)
[2019-07-27] MEDS: Ferrous Sulfate TAB* 325 MG PO SCH (09:07)
[2019-07-27] MEDS: Vitamin THERAPEUTIC TAB PO SCH (09:07)
[2019-07-27] MEDS: Calcium Carbonate CHEW TAB* 500 MG (TUMS) PO SCH ×3 (09:08→21:03)
[2019-07-27] MEDS: Potassium Chlor TAB* 10 MEQ TAB.ER PO SCH (09:08)
[2019-07-27] MEDS: Folic Acid TAB* 1 MG PO SCH (09:08)
[2019-07-27] MEDS: Rivaroxaban TAB(*) 20 MG TAB PO SCH (09:08)
[2019-07-27] MEDS: Cyanocobalamin TAB* 500 MCG PO SCH (09:08)
[2019-07-27] MEDS: Atorvastatin* 10 MG TAB PO SCH (09:08)
[2019-07-27] MEDS: Pantoprazole TAB * 40 MG TAB PO SCH (09:08)
[2019-07-27] MEDS: Polyethylene Glycol 3350* 17 GM PACKET PO SCH ×3 (09:08→11:50)
[2019-07-27] MEDS: PROPAFENONE 225 MG PO SCH ×2 (09:13→21:04)
[2019-07-27] MEDS: Magnesium Hydroxide LIQ* 30 ML UDC PO SCH ×2 (09:14→21:03)
--- NOTE | 2019-07-27 10:43 | PN ---
Progress Note - Progress Note Date of Service: 07/27/19 SOAP: Subjective: [Pt doing well as far a L knee is concerned. Denies CP, SOB, dizziness, nausea. Has some L calf pain. This was addressed last night. Dr. Rodríguez is following. Pt has had a couple of doppler US this past week .] Objective: [A and O x 3, NAD. Seated in chair. Jarrod wrap wrapped quite tightly around L knee, left calf moderately swollen and TTP. Distal gross motor and NV function intact Dressing changed. Surgical wound benign. New jarrod wrapped from lower calf to thigh, loosely. ] Vital Signs: Temp Pulse Resp BP Pulse Ox 99 F 56 16 106/50 97 07/27/19 07:15 07/27/19 07:15 07/27/19 09:06 07/27/19 07:15 07/27/19 07:15 Assessment: [s/p L TKA POD # 10 afib] Plan: [Pain management Keep loose dressing on L knee or leave dressing off as pt is comfortable. May shower Monitor calf pain and swelling Plan to move to PMRU or snf when cleared by medicine]
[2019-07-27] MEDS: Morphine TAB Extended Release (*) 15 MG TAB.ER PO SCH ×2 (11:50→22:48)
--- NOTE | 2019-07-27 14:56 | PN ---
Subjective Date of Service: 07/27/19 Interval History: patient seen today. reports no bowel movement for 2-3 days. Advised to take her laxative and stool softener today. Will encourage activity. CXR and ekg reviewed. CXR stable minimal effusion near resolution. EKG stable NSR. Expressed to her she is medically stable for rehab pending bed availability. Ortho input appreciated Past Medical History: Unchanged from Admission Objective Active Medications: Atorvastatin Calcium (Lipitor*) 10 mg PO QAM [facility] Last Admin: 07/27/19 09:08 Dose: 10 mg Bisacodyl (Dulcolax Supp*) 10 mg HI DAILY PRN PRN Reason: CONSTIPATION Last Admin: 07/24/19 16:45 Dose: 10 mg Calcium Carbonate (Tums*) 500 mg PO TID [facility] Last Admin: 07/27/19 13:28 Dose: 500 mg Cyanocobalamin (Vitamin B12 Tab*) 1,000 mcg PO DAILY [facility] Last Admin: 07/27/19 09:08 Dose: 1,000 mcg Cyclobenzaprine HCl (Flexeril Tab*) 10 mg PO Q6H PRN PRN Reason: SPASMS Last Admin: 07/21/19 14:41 Dose: 10 mg Diphenhydramine HCl (Benadryl Iv*) 25 mg IV Q6H PRN PRN Reason: PRURITIS Diphenhydramine HCl (Benadryl Po*) 25 mg PO Q6H PRN PRN Reason: PRURITIS Docusate Sodium (Colace Cap*) 100 mg PO BID [facility] Last Admin: 07/27/19 09:06 Dose: 100 mg Ferrous Sulfate (Ferrous Sulfate Tab*) 325 mg PO DAILY [facility] Last Admin: 07/27/19 09:07 Dose: 325 mg Folic Acid (Folvite Tab*) 1 mg PO DAILY [facility] Last Admin: 07/27/19 09:08 Dose: 1 mg Cefepime HCl (Maxipime 2 Gm In Dextrose Duplex (*)) 2 gm in 50 mls @ 100 mls/ hr IV Q8H [facility] Last Admin: 07/27/19 13:28 Dose: 100 mls/hr Lactulose (Lactulose*) 30 ml PO BID PRN PRN Reason: CONSTIPATION Last Admin: 07/17/19 16:33 Dose: 30 ml Magnesium Hydroxide (Milk Of Magnesia Liq*) 30 ml PO BID [facility] Last Admin: 07/27/19 09:14 Dose: 30 ml Magnesium Hydroxide (Milk Of Magnesia Liq*) 30 ml PO Q6H PRN PRN Reason: CONSTIPATION Metoprolol Tartrate (Lopressor Iv*) 5 mg IV Q6H PRN PRN Reason: TACHYCARDIA Last Admin: 07/22/19 04:10 Dose: 5 mg Metoprolol Tartrate (Lopressor Tab*) 75 mg PO BID [facility] Last Admin: 07/27/19 09:06 Dose: 75 mg Morphine Sulfate (Ms Contin(*)) 15 mg PO Q12H [facility] Last Admin: 07/27/19 11:50 Dose: 15 mg Multivitamins (Theragran Tab*) 1 tab PO DAILY [facility] Last Admin: 07/27/19 09:07 Dose: 1 tab Ondansetron HCl (Zofran Inj*) 4 mg IV Q6H PRN PRN Reason: NAUSEA Last Admin: 07/20/19 13:20 Dose: 4 mg Ondansetron HCl (Zofran Odt Tab*) 4 mg PO Q6H PRN PRN Reason: NAUSEA Ondansetron HCl (Zofran Tab*) 4 mg PO Q6H PRN PRN Reason: NAUSEA Last Admin: 07/21/19 18:20 Dose: 4 mg Oxycodone HCl (Roxycodone Tab*) 5 mg PO Q4H PRN PRN Reason: PAIN - SEVERE Last Admin: 07/27/19 09:06 Dose: 5 mg Pantoprazole Sodium (Protonix Tab*) 40 mg PO DAILY [facility] Last Admin: 07/27/19 09:08 Dose: 40 mg Pharmacy Profile Note (Scopolamine Patch Remove*) 1 note PATCH OFF Q72H PRN PRN Reason: NAUSEA Polyethylene Glycol/Electrolytes (Miralax (17 Gm Dose Shiraz)) 17 gm PO DAILY [facility] Last Admin: 07/27/19 11:50 Dose: 17 gm Potassium Chloride (Klor Con Er Tab*) 10 meq PO QAM [facility] Last Admin: 07/27/19 09:08 Dose: 10 meq Propafenone HCl (Rythmol Sr (Nf)) 225 mg PO Q12HR [facility] Last Admin: 07/27/19 09:13 Dose: 225 mg Rivaroxaban (Xarelto(*)) 20 mg PO DAILY WITH MEAL [facility] Last Admin: 07/27/19 09:08 Dose: 20 mg Scopolamine (Transderm-Scop 1.5 Mg Patch*) 1 patch TRANSDERM Q72H PRN PRN Reason: NAUSEA Tramadol HCl (Ultram*) 50 mg PO Q6H PRN PRN Reason: PAIN - MODERATE Last Admin: 07/26/19 07:03 Dose: 50 mg Vital Signs - 8 hr 07/27/19 07/27/19 07/27/19 07:15 07:21 09:06 Temperature 99 F Pulse Rate 56 Respiratory 16 16 16 Rate Blood Pressure 106/50 (mmHg) O2 Sat by Pulse 97 Oximetry 07/27/19 07/27/19 07/27/19 11:10 11:15 11:50 Temperature 97.1 F Pulse Rate 65 Respiratory 16 16 16 Rate Blood Pressure 109/54 (mmHg) O2 Sat by Pulse 98 Oximetry 07/27/19 14:24 Temperature Pulse Rate Respiratory 16 Rate Blood Pressure (mmHg) O2 Sat by Pulse Oximetry Oxygen Devices in Use Now: None Appearance: awake, alert. no distress Eyes: No Scleral Icterus, - - EOMI Ears/Nose/Mouth/Throat: Mucous Membranes Moist Neck: NL Appearance and Movements; NL JVP Respiratory: Symmetrical Chest Expansion and Respiratory Effort, Clear to Auscultation Cardiovascular: NL Sounds; No Murmurs; No JVD, - - LLE edema Abdominal: NL Sounds; No Tenderness; No Distention Extremities: - - LLE edema no erythema Neurological: Alert and Oriented x 3, NL Muscle Strength and Tone Result Diagrams: 07/26/19 05:55 07/26/19 05:55 Microbiology and Other Data: Microbiology 07/17/19 18:30 Urine Culture - Final Urine No Growth (<1,000 CFU/mL) Assess/Plan/Problems-Billing is a 74yo F with pmhx significant for HTN, AFib, hx breast CA. She had an elective L TKR with on 07/15/19 and was admitted to [facility]. Transferred to [address] [place] [address] for Afib with RVR. - Patient Problems (1) Anemia Current Visit: Yes Status: Acute Code(s): D64.9 - ANEMIA, UNSPECIFIED SNOMED Code(s): 747650681 Comment: - Fairly acute post op from 07/04/19 pre op (37) post op 24 - remained anemic despite 3 units pRBC total - I believe it was mixed as expected some post op loss and majority is due to her LLE hematoma. - last H/H stable up to 27 07/26/19 from 24 hct on 07/23/19, - continue her on Iron supplementation, B12, folic and MVI - continue PPI for GI prophylaxsis (on anticoagulation) (2) Anemia due to acute blood loss Current Visit: Yes Status: Acute Code(s): D62 - ACUTE POSTHEMORRHAGIC ANEMIA SNOMED Code(s): 223554946 Comment: - s/p tx with IV iron 07/19, 07/21/19, s/p 3 u pRBC (07/15 ; 07/18 and one on 07/21) - pt developed left calf hematoma over her post op course. - stool hemoccult neg (3) CRP elevated Current Visit: Yes Status: Acute Code(s): R79.82 - ELEVATED C-REACTIVE PROTEIN (CRP) SNOMED Code(s): 180795000879543 Comment: - marked elevation CRP, ? infeciton or simply post operatively. - no obvious source of infection, However can not rule out pneumonaie with simple parapneumonic loculated effusion. (I called and I spoke to the radiologist conference concierge for the overnight read (07.23.19) and based on the fluid characteristic he did not think it was complicated pleural effusion rather simple fluid). - Of course gold standard is throacocentesis. But this will require hold xaretlo and IR guided due to the small area. - I did esclate her antibiotic to cover nosocomial (d/c rocephin day # 2 and start cefepime 07/23/19 # 5) total 7 days - Her CRP trending downward. - US of hematoma did not show abscess formations (4) History of atrial fibrillation Current Visit: Yes Status: Acute Code(s): Z86.79 - PERSONAL HISTORY OF OTHER DISEASES OF THE CIRCULATORY SYSTEM SNOMED Code(s): 228193758 Comment: - A. fib with RVR on 07/21/19, transfered to [facility]. - Cont PO Propafenone 225 mg BID started 07/20 - S/p cardiac cardioversion now in sinus. (5) Hypertension Current Visit: Yes Status: Acute Code(s): I10 - ESSENTIAL (PRIMARY) HYPERTENSION SNOMED Code(s): 70650926 Comment: on metoprolol tartrate 75mg BID. She is off her lisinopril. (6) Hypomagnesemia Current Visit: Yes Status: Acute Code(s): E83.42 - HYPOMAGNESEMIA SNOMED Code(s): 379251552 Comment: - monitored daily given her Afib, ordered for am (7) Status post total left knee replacement Current Visit: Yes Status: Acute Code(s): Z96.652 - PRESENCE OF LEFT ARTIFICIAL KNEE JOINT SNOMED Code(s): 0780141413694 Comment: Management per orthopedics. She is constipated. Continue bowel regimen. (8) DVT prophylaxis Current Visit: Yes Status: Acute Code(s): Z29.9 - ENCOUNTER FOR PROPHYLACTIC MEASURES, UNSPECIFIED SNOMED Code(s): 340350196 Comment: miroslava Status and Disposition: probable d/c to [facility] tomorrow
[2019-07-27] MEDS: traMADol TAB* 50 MG PO PRN (22:49)
[2019-07-28] MEDS: Cefepime 2 GM in Dextrose(*) 2 GM/50 ML BAG IV SCH (04:35)
[2019-07-28] MEDS: Polyethylene Glycol 3350* 17 GM PACKET PO SCH (08:02)
[2019-07-28] MEDS: Vitamin THERAPEUTIC TAB PO SCH (08:03)
[2019-07-28] MEDS: Pantoprazole TAB * 40 MG TAB PO SCH (08:03)
[2019-07-28] MEDS: Folic Acid TAB* 1 MG PO SCH (08:03)
[2019-07-28] MEDS: Calcium Carbonate CHEW TAB* 500 MG (TUMS) PO SCH (08:03)
[2019-07-28] MEDS: Ferrous Sulfate TAB* 325 MG PO SCH (08:03)
[2019-07-28] MEDS: Docusate CAP* 100 MG PO SCH (08:03)
[2019-07-28] MEDS: Metoprolol Tartrate TAB* 25 MG PO SCH (08:03)
[2019-07-28] MEDS: Cyanocobalamin TAB* 500 MCG PO SCH (08:03)
[2019-07-28] MEDS: Atorvastatin* 10 MG TAB PO SCH (08:03)
[2019-07-28] MEDS: Potassium Chlor TAB* 10 MEQ TAB.ER PO SCH (08:03)
[2019-07-28] MEDS: Rivaroxaban TAB(*) 20 MG TAB PO SCH (08:03)
[2019-07-28] MEDS: PROPAFENONE 225 MG PO SCH (08:05)
[2019-07-28] MEDS: Magnesium Hydroxide LIQ* 30 ML UDC PO SCH ×2 (08:06→08:10)
[2019-07-28 08:08] VITALS: BP 109/90
[2019-07-28] MEDS: oxyCODONE TAB* 5 MG TAB PO PRN ×2 (09:31→13:52)
--- NOTE | 2019-07-28 11:02 | PN ---
Progress Note - Progress Note Date of Service: 07/28/19 SOAP: Subjective: []Patient seen and examined OOB in chair. She feels well without CP, SOB, dizziness, nausea. Pleural effusions resolving, in NSR. Objective: []Gen: NAD RLE: Right knee dressing changed, incision CDI, thigh soft, DF/PF intact, DP2+, sensation intact to light touch distally Calves supple and nontender, no erythema. Assessment: []s/p L TKA POD # 11 afib] Plan: [Pain management Keep loose dressing on L knee due to discomfort when tight May shower, do not submerge incision Plan to move to PMRU or snf when bed available Vital Signs Temp 98.4 F 07/28/19 07:15 Pulse 67 07/28/19 07:15 Resp 18 07/28/19 09:31 BP 109/90 07/28/19 07:15 Pulse Ox 97 07/28/19 08:00 Intake & Output 07/27/19 07/28/19 07/28/19 18:59 06:59 18:59 Intake Total 480 0 240 Output Total 0 0 Balance 480 0 240 Intake: Oral 480 0 240 Output: Urine 0 0 Other: Estimated Stool Amount Large Laboratory Last Values WBC 7.0 10^3/uL (3.5-10.8) 07/26/19 05:55 RBC 3.06 10^6 /uL (3.70-4.87) L 07/26/19 05:55 Hgb 9.2 g/dL (12.0-16.0) L 07/26/19 05:55 Hct 27 % (35-47) L 07/26/19 05:55 MCV 89 fL (80-97) 07/26/19 05:55 MCH 30 pg (27-31) 07/26/19 05:55 MCHC 34 g/dL (31-36) 07/26/19 05:55 RDW 17 % (10-15) H 07/26/19 05:55 Plt Count 334 10^3/uL (150-450) 07/26/19 05:55 MPV 7.5 fL (7.4-10.4) 07/26/19 05:55 Neut % (Auto) 70.5 % 07/26/19 05:55 Lymph % (Auto) 16.1 % 07/26/19 05:55 [place] % (Auto) 9.2 % 07/26/19 05:55 Eos % (Auto) 3.4 % 07/26/19 05:55 Baso % (Auto) 0.8 % 07/26/19 05:55 Absolute Neuts (auto) 4.9 10^3/ul (1.5-7.7) 07/26/19 05:55 Absolute Lymphs (auto) 1.1 10^3/ul (1.0-4.8) 07/26/19 05:55 Absolute Monos (auto) 0.6 10^3/ul (0-0.8) 07/26/19 05:55 Absolute Eos (auto) 0.2 10^3/ul (0-0.6) 07/26/19 05:55 Absolute Basos (auto) 0.1 10^3/ul (0-0.2) 07/26/19 05:55 Absolute Nucleated RBC 0.0 10^3/ul 07/26/19 05:55 Nucleated RBC % 0.0 07/26/19 05:55 ESR 89 mm/Hr (0-29) H 07/26/19 05:55 INR (Anticoag Therapy) 1.09 (0.82-1.09) 07/15/19 11:07 Sodium 135 mmol/L (135-145) 07/26/19 05:55 Potassium 4.2 mmol/L (3.5-5.0) 07/26/19 05:55 Chloride 103 mmol/L (101-111) 07/26/19 05:55 Carbon Dioxide 26 mmol/L (22-32) 07/26/19 05:55 Anion Gap 6 mmol/L (2-11) 07/26/19 05:55 BUN 15 mg/dL (6-24) 07/26/19 05:55 Creatinine 0.79 mg/dL (0.51-0.95) 07/26/19 05:55 Est GFR ( Amer) 85.6 (>60) 07/26/19 05:55 Est GFR (Non-Af Amer) 70.8 (>60) 07/26/19 05:55 BUN/Creatinine Ratio 19.0 (8-20) 07/26/19 05:55 Glucose 116 mg/dL (70-100) H 07/26/19 05:55 Calcium 8.7 mg/dL (8.6-10.3) 07/26/19 05:55 Phosphorus 3.2 mg/dL (2.5-5.0) 07/26/19 05:55 Magnesium 2.1 mg/dL (1.9-2.7) 07/26/19 05:55 Total Creatine Kinase 74 U/L (10-223) 07/23/19 05:49 Troponin I 0.01 ng/mL (<0.03) 07/22/19 09:09 C-Reactive Protein 127.94 mg/L (<8.01) H 07/26/19 05:55 Urine Color Yellow 07/17/19 18:30 Urine Appearance Clear 07/17/19 18:30 Urine pH 6.0 (5-9) 07/17/19 18:30 Ur Specific [place] 1.006 (1.010-1.030) L 07/17/19 18:30 Urine Protein Negative (Negative) 07/17/19 18:30 Urine Ketones Negative (Negative) 07/17/19 18:30 Urine Blood 1+ (Negative) A 07/17/19 18:30 Urine Nitrate Negative (Negative) 07/17/19 18:30 Urine Bilirubin Negative (Negative) 07/17/19 18:30 Urine Urobilinogen Negative (Negative) 07/17/19 18:30 Ur Leukocyte Esterase 1+ (Negative) A 07/17/19 18:30 Urine WBC (Auto) 1+(6-10/hpf) (Absent) A 07/17/19 18:30 Urine RBC (Auto) Trace(0-2/hpf) (Absent) 07/17/19 18:30 Ur Squamous Epith Cells Present (Absent) A 07/17/19 18:30 Urine Bacteria Absent (Absent) 07/17/19 18:30 Urine Glucose Negative (Negative) 07/17/19 18:30 Blood Type O Positive 07/22/19 03:53 Antibody Screen Negative 07/22/19 03:53 Crossmatch See Detail 07/22/19 03:53 ]
[2019-07-28] MEDS: traMADol TAB* 50 MG PO PRN (13:18)
--- NOTE | 2019-07-28 17:48 | DS ---
CC: Dr. Patricia Smith; Dr. Romeo Cotton; "Dr. Sonya Padilla" * DISCHARGE SUMMARY: DATE OF ADMISSION: 07/15/19 DATE OF DISCHARGE: 07/28/19 FINAL DISCHARGE DIAGNOSES: 1. Left total knee replacement. 2. Left calf hematoma. 3. Atrial fibrillation with rapid ventricular response, status post cardioversion. 4. Anemia. 5. Hypertension. 6. Hypomagnesemia. HOSPITAL COURSE: The patient presented to [facility] for elective left total knee arthroplasty. She underwent the procedure on 07/15/19, and postoperatively, the patient tolerated the procedure well and did not have any intraop complication. However, during the hospital course, it was noted that the patient was having slightly but surely drop in her H and H. She did require a total of 3 units packed RBC postoperatively and she received iron infusion on 07/20/19 and 07/21/19 and 1 unit on 07/19/19 and 1 unit on 07/22/19. Her anemia was thought to be due to postop blood loss, but more so due to left thigh hematoma. Therefore, she was transferred to the Medical Service from Orthopedic given the fact that she was stable from orthopedic point of view, but medically she was still requiring aggressive treatment for her anemia and for her elevated sed rate, CRP, and possible left lower lobe pneumonia and pleural effusion. Therefore, she was transferred to our service and I did see the patient and assessed her for the initial encounter on 07/23/19. At that time, I elected to escalate her antibiotic to cefepime given that her CT chest did show some loculated pleural effusion, which could be simple versus complicated. I spoke with the radiologist, and based on the density read from the CT scan, the fluid appear to be very simple. Therefore, I did not pursue any thoracocentesis. I escalated her antibiotic to cefepime. I elected to follow up her serological marker, white count, sed rate, and CRP to see if she provides a good response from that and cefepime was initiated on 07/23/19. Initially, she was on ceftriaxone. Regarding her left calf hematoma, it was negative for DVT, but I followed with an ultrasound of the soft tissue to rule out any intramuscular collection, which was negative for abscess, yet could not rule out infection given the edema and erythema that could have been from the hematoma versus infection, which I had to consider strongly given persistent elevation in ESR and CRP. The patient was maintained on our service, was monitored daily, but she developed atrial fibrillation with RVR post- operatively. Cardiology was consulted. She was seen by Dr. Corina Guidry and she was scheduled for transesophageal echocardiogram and cardioversion the following day, and she underwent electrical cardioversion on 07/24/[address] King. She converted into sinus rhythm and medication were managed and adjusted at the recommendation of Cardiology. She was placed on Lopressor 75 b.i.d. along with Rythmol 225 mg twice a day. Today, the patient is seen and evaluated. Her hematocrit, which at one time was as low as 23, now is up to hematocrit of 27. White count, which was as high as 11, is now down to 7.0. Sed rate was ordered on 07/26/19 as the baseline was 89, but her CRP which was elevated at 230 is down to 127 now that she was on cefepime. Troponins were negative. She is ambulating with Physical Therapy. Her pain seems to be fairly decently controlled with oxycodone and tramadol. Therefore, I deemed her stable for discharge today and we were offered bed at [facility]. DISCHARGE ASSESSMENT AND PLAN: 1. For her anemia, which I presumed it to be secondary to acute postop as her preop hematocrit was 37 and postop was down to 24, status post 3 units packed RBC throughout the hospital stay and iron infusion, and now, her hematocrit has been steadily going up spontaneously up to 27. I will continue her on oral supplement B12 and folic acid and multivitamin and I did add PPI for GI prophylaxis. 2. For her left calf hematoma, which could be the source where she lost most of her blood, seems to be stable, pain controlled. I informed the patient that it may take up to 6 weeks to resolve. Continue her Xarelto and minimize trauma. 3. Elevated CRP. At that time given her elevated CRP, hematoma, and then right pleural effusion, we elected to treat empirically with antibiotic. She was on ceftriaxone. I escalated it to cefepime. She received it for 5 days, cefepime 2 days. I am going to send her with cefdinir for additional 3 more days. Source of infection was undetermined, blood cultures were negative, urine culture was negative, and other than the chest x-ray finding and the CT finding of the pleural effusion and the hematoma of the left thigh, we were aiming on empirical therapy in the setting of elevated CRP despite ceftriaxone on initial days. 4. For her history of atrial fibrillation, she does have paroxysmal, she follows with Dr. Cotton as an outpatient, but she developed RVR postoperatively. Cardiology was consulted and they recommended placing her on propafenone 225 b.i.d. as well as Toprol was increased up to 75 b.i.d. We took her off lisinopril to accommodate blood pressure metoprolol and she underwent cardioversion by Dr. King after a transesophageal echocardiogram on and remains in sinus rhythm. 5. For her left knee replacement, she is to follow up with Dr. Smith scheduled this coming Sunday for suture removal, please ensure date and time conformation and arrangement for her discharge. PHYSICAL EXAMINATION: Her temperature is 98.4, pulse is 67, respiratory rate 18 , sating 97%, blood pressure 109/90. General: She is awake, alert, oriented, in no distress. Head and Neck: Normocephalic, atraumatic. Lungs: Clear to auscultation, diminished at the bases, worse on the right. No rhonchi, no wheezing. Abdomen: Positive bowel sounds. Soft, nontender, nondistended. Extremities: She does have edema in the left lower extremity. INPATIENT DIAGNOSTIC STUDIES/LAB DATA: CT of the chest dated 07/22/19 showed no acute pulmonary embolism, bilateral pleural effusion with loculated fluid in the posterior aspect of the right mid lung associated with atelectasis. Lower extremity Doppler was negative for DVT of the lower leg on the left side. Soft tissue of the lower extremity shows edema. No fluid collection or any evidence of drainable fluid. Chest x-ray, 07/16/19, shows no acute pulmonary disease; repeated 07/17/19, similar findings; and chest x-ray 07/26/19, no acute cardiopulmonary disease. Echocardiogram done on 07/22/19 shows EF 45% to 50%, normal wall motion, no abnormality, mild global hypokinesis, trace regurgitation of the mitral valve. Transesophageal echocardiogram, 07/24/19, Dr. King; ejection fraction 45% to 50%, left atrium mildly dilated, no evidence of atrial thrombus. CONSULTATION: 1. Cardiology with Dr. Guidry and Dr. King. 2. Orthopedic, Dr. Smith. PROCEDURES: 1. Left knee arthroplasty. 2. Transesophageal echocardiography and cardioversion. DISCHARGE MEDICATIONS: 1. Dulcolax suppository 10 mg as needed. 2. B12 1000 mcg daily. 3. Flexeril 10 t.i.d. p.r.n. 4. Benadryl p.r.n. for itching. 5. Colace 100 b.i.d. 6. Iron 325 daily. 7. Folic acid 1 mg daily. 8. Lactulose 30 cc twice a day as needed. 9. Milk of magnesia. 10. Metoprolol 75 b.i.d. 11. Oxycodone 5 mg every 4 hours as needed. 12. Protonix 40 mg daily. 13. Rythmol 225 mg every 12 hours. 14. Scopolamine patch as needed for dizziness. 15. Tramadol 50 every 6 hours as needed. 16. Multivitamin daily. 17. Cefdinir 300 mg twice a day for 3 more days. 18. Calcium with vitamin D. 19. MiraLAX 17 g daily. 20. Xarelto 20 mg every morning. 21. Potassium 10 mEq daily. 22. Lipitor 10 mg daily. To discontinue her metoprolol 25 once in the morning, discontinue her lisinopril 2.5, discontinue diclofenac sodium, and discontinue her Rythmol 600 mg p.r.n. DISCHARGE RECOMMENDATIONS: 1. Activity and weight bearing as tolerated. 2. Follow up with Dr. Smith this coming Sunday. 3. Follow up with Dr. Cotton in 1 to 2 weeks for her postop atrial fibrillation and further cardiac management. DISCHARGE DISPOSITION: [facility]. DISCHARGE CONDITION: Stable. [id number]/[facility] #: [id number] MTDD
== END 2019-07-28 14:00 | disposition swing bed (61) | DRG 469 ==
LOC: OR 10:12 → SSU 15:46 → OBSVTOIN 07-16 10:00 → MEDTELE 07-21 20:04
PROVIDERS: ADMIT Orthopaedic Surgery Adult Reconstructive Orthopaedic Surgery; ATTEND Internal Medicine
PROC: 0SRD069 Replacement of Left Knee Joint with Oxidized Zirconium on Polyethylene Synthetic Substitute, Cemented, Open Approach (ICD-10-PCS; principal; 2019-07-15 13:00)
PROC: 30233N1 Transfusion of Nonautologous Red Blood Cells into Peripheral Vein, Percutaneous Approach (ICD-10-PCS; 2019-07-16)
PROC: 5A2204Z Restoration of Cardiac Rhythm, Single (ICD-10-PCS; 2019-07-24)
PROC: B24BZZ4 Ultrasonography of Heart with Aorta, Transesophageal (ICD-10-PCS; 2019-07-24)
DX: M17.12 Unilateral primary osteoarthritis, left knee (principal); J18.9 Pneumonia, unspecified organism; D62 Acute posthemorrhagic anemia; J90 Pleural effusion, not elsewhere classified; M96.840 Postprocedural hematoma of a musculoskeletal structure following a musculoskeletal system procedure; Z96.641 Presence of right artificial hip joint; I48.0 Paroxysmal atrial fibrillation; I50.9 Heart failure, unspecified; I11.0 Hypertensive heart disease with heart failure; G89.29 Other chronic pain; E83.42 Hypomagnesemia; M25.462 Effusion, left knee; Y83.8 Other surgical procedures as the cause of abnormal reaction of the patient, or of later complication, without mention of misadventure at the time of the procedure; Y79.2 Prosthetic and other implants, materials and accessory orthopedic devices associated with adverse incidents; Y92.234 Operating room of hospital as the place of occurrence of the external cause; M85.80 Other specified disorders of bone density and structure, unspecified site; M06.9 Rheumatoid arthritis, unspecified; E78.00 Pure hypercholesterolemia, unspecified; M41.84 Other forms of scoliosis, thoracic region; Z85.3 Personal history of malignant neoplasm of breast; Z90.12 Acquired absence of left breast and nipple; Z88.6 Allergy status to analgesic agent; Z79.899 Other long term (current) drug therapy; Z87.891 Personal history of nicotine dependence; Z79.01 Long term (current) use of anticoagulants; Z92.21 Personal history of antineoplastic chemotherapy
CPT/HCPCS: 36415; 71046; 71275; 80048; 81003; 81015; 82272; 82550; 83735; 84100; 84484; 85014; 85018; 85025; 85048; 85049; 85610; 85652; 86140; 86850; 86900; 86901; 86922; 87040; 87086; 88305; 88311; 92960; 93005; 93306; 93312; 93325; 99156; 99157; A9270-GY; C1776; J0330; J0690; J0692; J0696; J1100; J1170; J1240; J1885; J2250; J2270; J2310; J2405; J2704; J2765; J2795; J2916; J3010; J3475; J3490; P9040; Q9967